=== PATIENT | female | born 1935 | race Caucasian/White ===

== ENCOUNTER 2020-06-30 09:00 | Inpatient (IN) | payer BC, OTHER ==
[~2020-06-30] VITALS: Ht 157.5 cm; Wt 67.6 kg
[2020-06-30 09:00] VITALS: BP 159/74
[~2020-06-30 09:00] MED LIST: METOPROLOL SUCC25 MG ORAL; VENLAFAXINE HCL25 MG ORAL; ZESTRIL20 MG ORAL
--- NOTE | 2020-06-30 09:00 | NUR ---
ED Nurse Note: Pt brought in by ambulance from outside home d/t mechanical fall 30 minutes prior to arrival. Pt reports walking a dog when the dog ran, pulled the leash and she fell. Pt denies head injury. Right hip pain 04/03. Right leg noted to be shorter than left and rotated exteriorly. Respirations even and unlabored on room air. Vitals stable as documented. A+Ox4, speaking in complete sentences.
[2020-06-30] MEDS ORDERED: Morphine Sulfate 4mg/ml Inj (IV USE ONLY) IVP ONE (09:15)
--- NOTE | 2020-06-30 09:26 | NUR ---
ED Nurse Note: pt in radiology
--- NOTE | 2020-06-30 09:30 | NUR ---
ED Nurse Note: pt back from radiology. No acute distress noted/
[2020-06-30 10:13] LABS: BASOPHILS % (AUTO) 1.5 % (0.0-2.0); EOSINOPHILS % (AUTO) 2.7 % (0.0-3.0); HEMATOCRIT 39.4 % (37.0-47.0); HEMOGLOBIN 12.8 G/DL (12.0-16.0); LYMPHOCYTES % (AUTO) 19.2 % (20.0-45.0); MEAN CORPUSCULAR VOLUME 90 FL (80-99); MONOCYTES % (AUTO) 8.1 % (1.0-10.0); NEUTROPHILS % (AUTO) 68.5 % (45.0-75.0); PLATELET COUNT 283 K/UL (150-450); WHITE BLOOD COUNT 7.4 K/UL (4.8-10.8)
--- NOTE | 2020-06-30 10:37 | Diagnostic Imaging Report ---
Indication: Neck pain, trauma, status post fall Technique: Spiral acquisitions obtained through the cervical spine. No IV contrast utilized. Multiplanar reconstructions were generated. Total dose length product 514 mGycm. CTDIvol(s) 20 mGy. Dose reduction achieved using automated exposure control. Comparison: none Findings: No acute fracture. No dislocation. No prevertebral soft tissue swelling. There is slight anterior offset of C2 on C3, C3 on C4, and C4 on C5. There is thickening and calcification of the posterior transverse ligament of the odontoid. There is degenerative narrowing the anterior atlantoaxial joint. At C2-3, there is bilateral facet arthrosis. No significant disc bulge or protrusion or spinal stenosis. At C3-4, there is severe left neural foraminal stenosis. No significant disc bulge or protrusion, spinal stenosis, or neural foraminal stenosis. There is facet arthrosis on the left. At C4-5, no significant disc bulge or protrusion, spinal stenosis, or neural foraminal stenosis. At C5-6, there is mild degenerative disc narrowing. There is mild bilateral neural foraminal narrowing. At C6-7 and C7-T1, no significant disc bulge or protrusion, spinal stenosis, or neural foraminal stenosis. There is bilateral facet arthrosis. There is some mucosal irregularity with surface bubbles involving the posterior nasopharynx. There is extensive sinus disease. Impression: No acute bony trauma Degenerative changes as detailed on a level by level basis above Some apparent surface irregularity of the posterior nasopharynx. Probably due to secretions, but mucosal lesion also possible. Consider direct inspection The CT scanner at [facility] is accredited by the [employer] and the scans are performed using protocols designed to limit radiation exposure to as low as reasonably achievable to attain images of sufficient resolution adequate for diagnostic evaluation.
--- NOTE | 2020-06-30 10:40 | Diagnostic Imaging Report ---
Indications: Head trauma, fall Technique: Spiral acquisitions obtained through the brain. Angled axial and coronal 5 x 5 mm slices were reconstructed. Total dose length product 1098 mGycm. CTDI vol(s) 53 mGy. Dose reduction achieved using automated exposure control Comparison: None. Findings: There is marked age-related enlargement of the ventricles and extra axial CSF spaces. There is considerable periventricular deep white matter low-attenuation, consistent with chronic microvascular ischemic changes. No acute intracranial hemorrhage or edema. No mass effect nor midline shift. Otherwise normal riddle-white differentiation. The calvarium is intact. The mastoids are clear. There is maxillary, ethmoid, and sphenoid sinus disease. Impression: Chronic and age-related changes Negative for acute intracranial bleed or mass effect Sinus disease The CT scanner at [facility] is accredited by the [employer] and the scans are performed using protocols designed to limit radiation exposure to as low as reasonably achievable to attain images of sufficient resolution adequate for diagnostic evaluation.
[2020-06-30 10:47] LABS: ANION GAP 4 mmol/L (5-15); BLOOD UREA NITROGEN 15 mg/dL (7-18); CALCIUM 9.1 MG/DL (8.5-10.1); CARBON DIOXIDE 31 MMOL/L (21-32); CHLORIDE 103 MMOL/L (98-107); CREATININE 0.8 MG/DL (0.55-1.30); POTASSIUM 3.9 MMOL/L (3.5-5.1); SODIUM 138 MMOL/L (136-145)
[2020-06-30 10:51] LABS: ALANINE AMINOTRANSFERASE 23 U/L (12-78); ALBUMIN 3.5 G/DL (3.4-5.0); ALBUMIN/GLOBULIN RATIO 0.9 (1.0-2.7); ALKALINE PHOSPHATASE 97 U/L (46-116); ASPARTATE AMINO TRANSFERASE 26 U/L (15-37); BILIRUBIN,TOTAL 0.4 MG/DL (0.2-1.0); CREATINE KINASE 110 U/L (26-308)
[2020-06-30 11:00] VITALS: BP 148/79
--- NOTE | 2020-06-30 11:00 | NUR ---
ED Nurse Note: pt's o2 sat dropped to 90% on RA. placed patient on 2 L NC. O2 sat now 98%
--- NOTE | 2020-06-30 11:21 | NUR ---
ED Nurse Note: covid swab sent to lab
[2020-06-30] MEDS: Morphine Sulfate 4mg/ml Inj (IV USE ONLY) IVP ONE ×2 (11:46→11:52)
[2020-06-30] MEDS ORDERED: Methocarbamol 750mg tab ORAL ONE (12:00)
--- NOTE | 2020-06-30 12:33 | Emergency Room Report ---
History of Present Illness General Chief Complaint: Multiple Trauma/Fall Source: Patient Present Illness HPI 85-year-old female presents ambulance status post mechanical fall this morning prior to arrival. Patient was walking her dog, and her dog took off, causing her to have instabi lity on her feet. She fell directly onto her right hip she was not ambulatory. After the fall secondary to pain. She was brought to the ED via ambulance She denies prodromal headache, syncope, neck pain, back pain, abdominal pain, melena, hematochezia or any other symptoms. Patient is not on blood thinners The patient's symptoms were gradual onset, severity was moderate, duration since 1 day. Quality: Aching Past medical history: Denies Past surgical history: Denies Smoking: Denies Alcohol use: Denies Drug use: Denies Review of systems: CONST: No fevers or chills, No night sweats PULMONARY: No productive cough, No shortness of breath CARDIAC: No chest pain, No palpitations GI: No vomiting, No diarrhea , No melena_or_BRBPR : No dysuria, No hematuria, No discharge NEURO: No new_focal_weakness_or_numbness, No confusion, No vision changes 14 point Review of Systems is otherwise negative except per HPI Physical Exam: GENERAL: Awake_alert_ nontoxic, no acute distress Spo2 98% on RA -normal EYES: Extraocular muscles are intact. Conjunctivae clear. Lids without swelling ENT: External nose and ear normal_in_appearance. Oropharynx clear. Head_atraumatic, Moist_oral_mucosa NECK: No JVD. No meningismus. No thyromegaly. Supple. Trachea midline RESP: Normal respiratory effort. Symmetric rise. No stridor. Clear_to_auscultation_No_rales_No_wheezes CARDIAC: Regular rate and regular rhytm. No_significant pedal edema. ABDOMEN: Soft. Nondistended. Nontender_No_rebound_or_guarding. No pelvic instability. MSK: Right hip is shortened and internally rotated. There is pain with range of motion. Popliteal pulse plus 2 out of 4. Intact DP and PT pulses. Right LE exam: No swelling / effusion appreciated, No significant pain with passive range of motion Lateral malleolus: no tenderness / swelling / ecchymoses Medial malleolus: no tenderness / swelling / ecchymoses Dorsalis pedis pulse: 2+ Capillary refill: <3 seconds in all toes All toes: full range of motion without any tenderness / swelling / deformity / evidence of infection Base of the fifth metatarsal: no tenderness / swelling / ecchymoses Navicular: no tenderness / swelling / ecchymoses Calcaneus: no tenderness / swelling / ecchymoses Arch of the foot: no tenderness / swelling / ecchymoses Midfoot: no tenderness / swelling / ecchymoses Strength of dorsal / plantar flexion: normal 5/5, mild pain with range of motion SKIN: Warm and dry. No visible cyanosis or pallor NEUROLOGIC: Alert, oriented x3. Motor_and_sensation_grossly_intact. No truncal ataxia. Gait_normal Psych: Normal mood and affect, normal judgment and insight - COORDINATION OF CARE Case was discussed with: Patient Any labs and imaging that were ordered were interpreted as part of the medical decision making: Medical Decision Making/Plan: Differential diagnosis includes musculoskeletal pain, fracture, dislocation, compartment syndrome, arterial occlusion, nerve damage, among others. Patient is neurologically intact and well-appearing. She is noted to have deformity to the right hip. X-rays of the right hip show closed right intertrochanteric femur fracture. Distally the patient has capillary refill <2 seconds and strong pulses. Preop labs were performed. Unremarkable. CT scan of the head and C-spine were performed and negative for acute fracture, dislocation, or intracranial hemorrhage. 1200: Orthopedic surgeon was consulted and we are pending recommendations at this time. States he will eval patient for OR I spoke with Dr. Wallace, and reviewed the patients presentation, workup, results, and treatment. They will admit the patient for further care and evaluation, and assume care of the patient at this time. 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: No Nursing Documentation-PMH Hx Hypertension: Yes Physical Exam Vital Signs Date Time Temp Pulse Resp B/P (MAP) Pulse Ox O2 Delivery O2 Flow Rate FiO2 06/30/20 08:50 98.4 77 18 163/78 (106) 98 Room Air Sp02 EP Interpretation: reviewed, normal Medical Decision Making Diagnostic Impression: Primary Impression: Intertrochanteric fracture of right femur Additional Impression: Fall Other X-Ray Diagnostic Results Other X-Ray Diagnostic Results : PA Scribe Text Pelvis X-ray: Views: 4 view(s) Intertrochanteric fracture, no dislocation, osteoarthritis Indication: [Pain] Impression: Intertrochanteric fracture The X-ray(s) were independently viewed and interpreted contemporaneously - Electronically signed by Bianca bourne DO Right knee X-ray: Views: 3 view(s) No fracture. Normal alignment. Soft tissues normal. Joint spaces normal. Indication: Pain Impression: Osteoarthritis The X-ray(s) were independently viewed and interpreted contemporaneously - Electronically signed by Bianca bourne DO Chest X-Ray: Views: [ 1 ] view(s) Indication: Fall Findings: Normal heart size. Mediastinum normal. No infiltrate. Impression: No acute disease The X-ray(s) were independently viewed and interpreted contemporaneously Electronically signed by Bianca bourne DO Reevaluation Time: 12:40 Last Vital Signs Date Time Temp Pulse Resp B/P (MAP) Pulse Ox O2 Delivery O2 Flow Rate FiO2 06/30/20 11:00 98.5 79 20 148/79 98 Nasal Cannula Status: improved Disposition: ADMITTED INPATIENT Admit Decision Time: 12:00 Condition: Stable Bianca Fuentes D.O. Jun 30, 2020 12:33
[2020-06-30 13:00] VITALS: BP 141/74
--- NOTE | 2020-06-30 14:14 | Diagnostic Imaging Report ---
Indication: Fall, trauma Technique: One view of the pelvis, 2 views of the right hip Comparison: none Findings: There is a comminuted intertrochanteric fracture of the right hip. No associated pelvic fracture. The bones are osteoporotic. The joint spaces are preserved. Impression: Positive for right hip intertrochanteric fracture
--- NOTE | 2020-06-30 14:30 | NUR ---
ED Nurse Note: report given to JUAN ALBERTO Ramos on 4E
--- NOTE | 2020-06-30 14:46 | Diagnostic Imaging Report ---
Indications: Pain, status post fall Technique: Two views of the right femur Comparison: None. Reference made to hip and pelvis radiograph performed at same time Findings: There is a comminuted intertrochanteric fracture of the proximal femur. The distal femoral shaft is unremarkable. There are degenerative proliferative changes of the knee joint, as well as meniscal chondrocalcinosis. The bones are osteoporotic. Impression: Positive for right hip intertrochanteric fracture No evidence of distal fracture
--- NOTE | 2020-06-30 15:30 | NUR ---
ED Nurse Note: Pt transferred safely to 4E with all belongings.
--- NOTE | 2020-06-30 15:30 | NUR ---
NURSE NOTES: Patient admitted from ER via [facility] under Dr. Libra rivera, diagnosis of right hip fracture. Belongings checked with ER nurse.Patient A&O x4, verbally responsive, not in respiratory distress. On oxygen 2L NC. Report pain on right hip with movement. IV on right AC saline locked. Skin intact. Difficulty hearing.Admission packet received. Bed in low position, locked, call light within reach, bed alarm on.
--- NOTE | 2020-06-30 15:57 | Diagnostic Imaging Report ---
Indication: Cough Technique: One view of the chest Comparison: 07/17/2010 Findings: Again demonstrated is a large hiatal hernia. There is mild interstitial prominence noted. There is atelectasis at the left lung base. Impression: Mild interstitial prominence. Nonspecific, could represent mild pulmonary edema, infiltrate, or could be chronic. Large hiatal hernia
--- NOTE | 2020-06-30 16:05 | History and Physical ---
Marley Bansal SAFE TECHNICIAN 06/30/20 1605: History of Present Illness General Reason for Hospitalization: Multiple Trauma/Fall Present Illness HPI 85 years old female with PMH of HTN, IA in 2010 , s/p 2 stents placement, depression, was brought by television engineer after mechanical fall which she sustained while walking her dog. Patient denied loss of consciousness blackout no seizure disorder. No headache. No neck pain She denied abdominal pain nausea vomiting diarrhea hematochezia or hematemesis. She was not taking any blood thinners. She denies chest pain, SOB, palpitations. Upon evaluation patietn was afebrile, BP was elevated. Rapid COVID [address] head revealed no acute intracranial pathology. Age-related changes noted. X-ray of the right femur and right hip with pelvis revealed right hip intertrochanteric fracture. CT of the cervical spine revealed no acute fracture. Degenerative changes noted. Laboratory work-up demonstrated no leukocytosis, stable hemoglobin and hematocrit. Stable electrolytes and renal parameters. Troponin negative. EKG revealed normal sinus rhythm no acute ischemic changes Patient subsequently admitted for mechanical fall, intertrochanteric fracture of the right femur. PMH: HRN< IA ( 2010), depression Past surgery: hysterectomy ( due to bleeding fibroids), s/p 2 stent placement Social history: fdenies smoking, ETOH abuse, illcicit drug use; retired, lives with her daughter Family history: not contributory Allergy: NKDA Medications: unknown ( patient will call her daughter to find out about medications) Code status: Full code Allergies: Coded Allergies: No Known Allergies (Verified , 07/17/10) COVID-19 Screening Contact w/high risk pt: No Experienced COVID-19 symptoms?: No Medication History Scheduled Lisinopril* (Zestril*), 20 MG ORAL BID, (Reported) Metoprolol Succinate* (Metoprolol Succinate*), 25 MG ORAL DAILY, (Reported) Venlafaxine Hcl* (Effexor*), 25 MG ORAL THREE TIMES A DAY, (Reported) Patient History Healthcare decision maker N Resuscitation status Advanced Directive on File Review of Systems Constitutional: Reports: no symptoms Eye: Reports: no symptoms ENT: Reports: no symptoms Respiratory: Reports: no symptoms Cardiovascular: Reports: other - hx of HTN, IA ( 2010) Gastrointestinal: Reports: no symptoms Musculoskeletal: Reports: see HPI, other - pain R hip, unable to ambulate Skin: Reports: no symptoms Psychiatric: Reports: other - depression Neurological: Reports: other - reports intermittnet numbness in toes BL Endocrine: Reports: no symptoms Hematologic/Lymphatic: Reports: no symptoms Physical Exam General Appearance: no apparent distress, alert Lines, tubes and drains: peripheral HEENT: normocephalic, atraumatic, anicteric, mucous membranes moist, PERRL, other - hard of hearing Respiratory/Chest: chest wall non-tender, lungs clear, no respiratory distress, no accessory muscle use Cardiovascular/Chest: normal rate - SR on monitor Abdomen: normal bowel sounds, non tender, soft Extremities: normal range of motion, no calf tenderness, normal capillary refill, other - R hip with external rotation Skin Exam: normal pigmentation, warm/dry Neurologic: abnormal gait - now unable to ambulate , alert, oriented x 3, responsive Musculoskeletal: normal muscle bulk Last 24 Hour Vital Signs Date Time Temp Pulse Resp B/P (MAP) Pulse Ox O2 Delivery O2 Flow Rate FiO2 06/30/20 13:00 98.9 84 20 141/74 99 Nasal Cannula 2.0 06/30/20 11:00 98.5 79 20 148/79 98 Nasal Cannula 06/30/20 09:00 98.2 79 20 159/74 95 Room Air 06/30/20 09:00 79 20 Room Air 06/30/20 08:50 98.4 77 18 163/78 (106) 98 Room Air Laboratory Tests Test 06/30/20 09:30 White Blood Count 7.4 K/UL (4.8-10.8) Red Blood Count 4.40 M/UL (4.20-5.40) Hemoglobin 12.8 G/DL (12.0-16.0) Hematocrit 39.4 % (37.0-47.0) Mean Corpuscular Volume 90 FL (80-99) Mean Corpuscular Hemoglobin 29.1 PG (27.0-31.0) Mean Corpuscular Hemoglobin Concent 32.4 G/DL (32.0-36.0) Red Cell Distribution Width 13.0 % (11.6-14.8) Platelet Count 283 K/UL (150-450) Mean Platelet Volume 7.1 FL (6.5-10.1) Neutrophils (%) (Auto) 68.5 % (45.0-75.0) Lymphocytes (%) (Auto) 19.2 % (20.0-45.0) L Monocytes (%) (Auto) 8.1 % (1.0-10.0) Eosinophils (%) (Auto) 2.7 % (0.0-3.0) Basophils (%) (Auto) 1.5 % (0.0-2.0) Prothrombin Time 11.2 SEC (9.30-11.50) Prothromb Time International Ratio 1.0 (0.9-1.1) Activated Partial Thromboplast Time 27 SEC (23-33) Sodium Level 138 MMOL/L (136-145) Potassium Level 3.9 MMOL/L (3.5-5.1) Chloride Level 103 MMOL/L (98-107) Carbon Dioxide Level 31 MMOL/L (21-32) Anion Gap 4 mmol/L (5-15) L Blood Urea Nitrogen 15 mg/dL (7-18) Creatinine 0.8 MG/DL (0.55-1.30) Estimat Glomerular Filtration Rate > 60 mL/min (>60) Glucose Level 125 MG/DL (74-106) H Calcium Level 9.1 MG/DL (8.5-10.1) Total Bilirubin 0.4 MG/DL (0.2-1.0) Aspartate Amino Transf (AST/SGOT) 26 U/L (15-37) Alanine Aminotransferase (ALT/SGPT) 23 U/L (12-78) Alkaline Phosphatase 97 U/L (46-116) Total Creatine Kinase 110 U/L (26-308) Troponin I 0.002 ng/mL (0.000-0.056) Total Protein 7.5 G/DL (6.4-8.2) Albumin 3.5 G/DL (3.4-5.0) Globulin 4.0 g/dL Albumin/Globulin Ratio 0.9 (1.0-2.7) L Microbiology Date/Time Source Procedure Growth Status 06/30/20 11:02 Nasopharynx SARS-CoV-2 RdRp Gene Assay - Final Complete Height (Feet): 5 Height (Inches): 3.00 Weight (Pounds): 150 Assessment/Plan Assessment/Plan: ASSESSMENT Right intertrochanteric fracture s/p mechanical fall HTN Hx of IA Depression PLAN OF CARE MS floor surgery eval pain management ECHO will need cardio clearance for surgery given hx of IA BP management resume meds from home when known DVT prophylaxis supportive care case discussed and evaluated by supervising physician Dedrick Cobos MD 06/30/20 1803: History of Present Illness General Reason for Hospitalization: Multiple Trauma/Fall Present Illness Allergies: Coded Allergies: No Known Allergies (Verified , 07/17/10) Medication History Scheduled Lisinopril* (Zestril*), 20 MG ORAL BID, (Reported) Metoprolol Succinate* (Metoprolol Succinate*), 25 MG ORAL DAILY, (Reported) Venlafaxine Hcl* (Effexor*), 25 MG ORAL THREE TIMES A DAY, (Reported) Marley Bansal NP Jun 30, 2020 16:05 Dedrick Cobos MD Jun 30, 2020 18:03
[2020-06-30] MEDS ORDERED: Miralax 17gm pkt ORAL PRN (16:15)
--- NOTE | 2020-06-30 16:44 | Cardiac Electrophysiology PN ---
Subjective Subjective [id number] Objective Last 24 Hour Vital Signs Date Time Temp Pulse Resp B/P (MAP) Pulse Ox O2 Delivery O2 Flow Rate FiO2 06/30/20 13:00 98.9 84 20 141/74 99 Nasal Cannula 2.0 06/30/20 11:00 98.5 79 20 148/79 98 Nasal Cannula 06/30/20 09:00 98.2 79 20 159/74 95 Room Air 06/30/20 09:00 79 20 Room Air 06/30/20 08:50 98.4 77 18 163/78 (106) 98 Room Air Laboratory Tests Test 06/30/20 09:30 White Blood Count 7.4 K/UL (4.8-10.8) Red Blood Count 4.40 M/UL (4.20-5.40) Hemoglobin 12.8 G/DL (12.0-16.0) Hematocrit 39.4 % (37.0-47.0) Mean Corpuscular Volume 90 FL (80-99) Mean Corpuscular Hemoglobin 29.1 PG (27.0-31.0) Mean Corpuscular Hemoglobin Concent 32.4 G/DL (32.0-36.0) Red Cell Distribution Width 13.0 % (11.6-14.8) Platelet Count 283 K/UL (150-450) Mean Platelet Volume 7.1 FL (6.5-10.1) Neutrophils (%) (Auto) 68.5 % (45.0-75.0) Lymphocytes (%) (Auto) 19.2 % (20.0-45.0) L Monocytes (%) (Auto) 8.1 % (1.0-10.0) Eosinophils (%) (Auto) 2.7 % (0.0-3.0) Basophils (%) (Auto) 1.5 % (0.0-2.0) Prothrombin Time 11.2 SEC (9.30-11.50) Prothromb Time International Ratio 1.0 (0.9-1.1) Activated Partial Thromboplast Time 27 SEC (23-33) Sodium Level 138 MMOL/L (136-145) Potassium Level 3.9 MMOL/L (3.5-5.1) Chloride Level 103 MMOL/L (98-107) Carbon Dioxide Level 31 MMOL/L (21-32) Anion Gap 4 mmol/L (5-15) L Blood Urea Nitrogen 15 mg/dL (7-18) Creatinine 0.8 MG/DL (0.55-1.30) Estimat Glomerular Filtration Rate > 60 mL/min (>60) Glucose Level 125 MG/DL (74-106) H Calcium Level 9.1 MG/DL (8.5-10.1) Total Bilirubin 0.4 MG/DL (0.2-1.0) Aspartate Amino Transf (AST/SGOT) 26 U/L (15-37) Alanine Aminotransferase (ALT/SGPT) 23 U/L (12-78) Alkaline Phosphatase 97 U/L (46-116) Total Creatine Kinase 110 U/L (26-308) Troponin I 0.002 ng/mL (0.000-0.056) Total Protein 7.5 G/DL (6.4-8.2) Albumin 3.5 G/DL (3.4-5.0) Globulin 4.0 g/dL Albumin/Globulin Ratio 0.9 (1.0-2.7) L Microbiology Date/Time Source Procedure Growth Status 06/30/20 11:02 Nasopharynx SARS-CoV-2 RdRp Gene Assay - Final Complete Tim Chávez MD Jun 30, 2020 16:44
[2020-06-30] MEDS: Enoxaparin 40mg Inj SUBQ SCH (17:55)
[2020-06-30] MEDS: Venlafaxine 25mg tab ORAL SCH (17:55)
--- NOTE | 2020-06-30 18:00 | Consultation ---
DATE OF CONSULTATION: 06/30/2020 CARDIOLOGY CONSULTATION REFERRING PHYSICIAN: Dedrick Cobos M.D. REASON FOR CONSULTATION: Management of hypertension and preoperative clearance prior to hip surgery. HISTORY OF PRESENT ILLNESS: The patient is an 85-year-old lady with history of hypertension and prior myocardial infarction in 2010, status post 2 stents, as well as depression, who was brought in after a mechanical fall while she was walking her dog. The patient did not have loss of consciousness. The patient denies any chest pain or palpitation or shortness of breath. Her rapid COVID was negative and head CT showed no intracranial pathology. The patient's x-ray showed right hip intertrochanteric fracture. The patient is scheduled for surgery tomorrow and cardiology consultation was obtained for further evaluation. Her EKG shows sinus rhythm with no acute ischemic changes. REVIEW OF SYSTEMS: Negative other than what is mentioned in history of present illness. PAST MEDICAL HISTORY: As mentioned above. FAMILY HISTORY: Noncontributory. SOCIAL HISTORY: She lives at home. Does not smoke or drink alcohol. MEDICATION AT HOME: Lisinopril 20 mg b.i.d. and metoprolol 25 mg daily and Effexor. PHYSICAL EXAMINATION: VITAL SIGNS: Blood pressure of 141/74, pulse 84, respirations 18, and she is afebrile. HEAD AND NECK: No JVD or carotid bruit. LUNGS: Clear. CARDIOVASCULAR: Regular S1 and S2 with no gallop or murmur. ABDOMEN: Soft. EXTREMITIES: No pitting edema. Her left hip is rotated. LABORATORY DATA: Labs show white count of 7.5, hematocrit 12.8, hematocrit 39, and platelet count 283. Sodium is 138, potassium 3.9, BUN of 15, creatinine 0.8. First troponin is negative. ASSESSMENT AND PLAN: 1. History of hypertension. The patient's blood pressure currently is stable on lisinopril 20 mg b.i.d. and Toprol-XL 25 mg daily. We will add p.r.n. clonidine to her medical regimen. 2. Coronary artery disease with history of stent in the past. Remains without any chest pain. EKG is nonischemic. We will get an echocardiogram. Repeat EKG and repeat cardiac enzymes all negative. The patient is okay to proceed with right hip surgery as well to low-risk surgery in this asymptomatic patient from cardiac perspective. 3. Hypertension. Continue lisinopril and metoprolol. Thank you very much for allowing me to participate in the care of this patient. Please do not hesitate to contact me for any questions regarding my evaluation. Tim Chávez M.D. DR: KARLENE JOB#: [id number] CC:
--- NOTE | 2020-06-30 19:40 | NUR ---
NURSE HAND-OFF: Important Events on Shift:New admission d/t right hip Fx Patient Status: stable, painful Diet: cardiac Pending Orders: n/a Pending Results/Labs:n/a Pending MD notification: n/a Latest Vital Signs: Temperature 98.5 , Pulse 81 , B/P 144 /67 , Respiratory Rate 20 , O2 SAT 98 , Nasal Cannula, O2 Flow Rate 2.0 . Vital Sign Comment: n/a Latest Austin Fall Score: 60 Fall Risk: High Risk Safety Measures: Call light Within Reach, Bed Alarm Zone 1, Side Rails Side Rails x2, Bed position Low and Locked. Fall Precautions: Yellow Socks Door Sign Patient Fall Education Report given to JUAN ALBERTO Steven.
[2020-06-30 20:00] VITALS: BP_SYST 100; BP_SYST 126; BP_DIAS 55; BP_DIAS 68
--- NOTE | 2020-06-30 20:00 | NUR ---
/NURSES NOTE: Pt in bed, A/OX4, states she has 9/10 pain in R hip. Will medicate according to eMAR. No outward s/s of distress noted. Breathing is even and unlabored on 2 L nasal canula. R AC IV site, patent. All due medications will be administered. Bed at lowest level, call light within reach. Pt will continue to be monitored.
[2020-06-30] MEDS: Lisinopril 20mg tab ORAL SCH (20:44)
[2020-06-30] MEDS: Docusate 100mg cap ORAL SCH (20:44)
[2020-06-30] MEDS: Morphine Sulfate 2mg/ml Inj(IV/IM USE ONLY) IVP PRN (20:46)
[2020-07-01] VITALS: BP 116/68
[2020-07-01] MEDS: Morphine Sulfate 2mg/ml Inj(IV/IM USE ONLY) IVP PRN ×3 (01:18→21:31)
[2020-07-01 04:00] VITALS: BP 120/62
[2020-07-01 06:45] LABS: BASOPHILS % (AUTO) 0.9 % (0.0-2.0); EOSINOPHILS % (AUTO) 0.3 % (0.0-3.0); HEMOGLOBIN 11.2 G/DL (12.0-16.0); LYMPHOCYTES % (AUTO) 10.3 % (20.0-45.0); MEAN CORPUSCULAR VOLUME 91 FL (80-99); MONOCYTES % (AUTO) 11.2 % (1.0-10.0); NEUTROPHILS % (AUTO) 77.3 % (45.0-75.0); PLATELET COUNT 261 K/UL (150-450); RED BLOOD COUNT 3.76 M/UL (4.20-5.40); RED CELL DISTRIBUTION WIDTH 12.5 % (11.6-14.8); WHITE BLOOD COUNT 11.6 K/UL (4.8-10.8)
--- NOTE | 2020-07-01 06:52 | NUR ---
NURSE HAND-OFF: Important Events on Shift:[Pt has brief on. In too much pain to be changed, turned, or cleaned. Offered several times and refused] Patient Status: [stable] Diet: [cardiac diet] Pending Orders: [] Pending Results/Labs:[cbc bmp hgb A1C] Pending MD notification:[NONE] Latest Vital Signs: Temperature 98.7 , Pulse 84 , B/P 120 /62 , Respiratory Rate 18 , O2 SAT 96 , Nasal Cannula, O2 Flow Rate 2.0 . Vital Sign Comment: [Within Normal Limits] Latest Austin Fall Score: 60 Fall Risk: High Risk Safety Measures: Call light Within Reach, Bed Alarm Zone 1, Side Rails Side Rails x2, Bed position Low and Locked. Fall Precautions: Yellow Socks Patient Fall Education Report given to [].
--- NOTE | 2020-07-01 07:40 | NUR ---
HAND OFF: R Report given to JUAN ALBERTO Choudhury
--- NOTE | 2020-07-01 07:41 | Consultation ---
Consult Note Consult Note 85 yo female with mechanical fall outside yesterday while walking her dog. Right hip pain and IT fracture on Xray hx of [place] NKDA Xray reviewed Assessment/Plan right hip IT fracture plan for ORIF tomorrow morning cards and med clearance today NPO tonight Risks/benefits discussed Kenya Luna Jul 01, 2020 07:41
--- NOTE | 2020-07-01 07:42 | NUR ---
NURSE NOTES: Report received from JUAN ALBERTO Michaels. Pt received, awake, alert and oriented x 4, no SOB, bed in lowest position with breaks engaged, denies any discomfort at this time, on 02 via NC at 2 lpm, IV site present, will continue to monitor, call light within reach.
[2020-07-01 07:59] LABS: ANION GAP 0 mmol/L (5-15); BLOOD UREA NITROGEN 20 mg/dL (7-18); CALCIUM 9.1 MG/DL (8.5-10.1); CARBON DIOXIDE 33 MMOL/L (21-32); CHLORIDE 101 MMOL/L (98-107); CHOLESTEROL 208 MG/DL (< 200); CREATININE 0.8 MG/DL (0.55-1.30); HDL CHOLESTEROL 52 MG/DL (40-60); POTASSIUM 4.5 MMOL/L (3.5-5.1); SODIUM 134 MMOL/L (136-145); TRIGLYCERIDES 89 MG/DL (30-150)
[2020-07-01 08:00] VITALS: BP 118/62
--- NOTE | 2020-07-01 08:30 | Consultation ---
DATE OF CONSULTATION: 07/01/2020 ORTHOPEDIC CONSULTATION CONSULTING PHYSICIAN: Neel Gonzalez MD. HISTORY OF PRESENT ILLNESS: The patient is an 85-year-old female, who was outside yesterday on the sidewalk, walking her dog, when the dog ran and she tripped and fell, landing on her right side. She could not get up. Emergency services was called and [place] [facility] [place] found to have a right hip intertrochanteric fracture. She has been admitted and Orthopedics consult has been called. PAST MEDICAL HISTORY: Hypertension and history of NE. PAST SURGICAL HISTORY: None. CURRENT MEDICATIONS: Please see chart. ALLERGIES: None. SOCIAL HISTORY: She lives at home. She is independent with her activities at baseline. PHYSICAL EXAMINATION: GENERAL: She is a pleasant woman. She is cooperative with examination, although she is hard of hearing. She answers questions appropriately and gives me an accurate account of the history. MUSCULOSKELETAL: She has tenderness upon palpation of the right hip with some developing ecchymosis. Any mobility of the right lower extremity elicits pain. She is neurovascularly intact. IMAGING: X-ray of the hip reviewed. There is an intertrochanteric fracture of the right hip. IMPRESSION: Right hip intertrochanteric fracture. DISCUSSION: At this time, I discussed with the patient my findings. Recommend going forward a right hip open reduction and internal fixation with gamma nail tomorrow morning, she would like to have this done. We will have Cardiology to clear her as well as the Medicine team clear her ahead of surgery, implant procedure in the morning. The risks of surgery including nerve injury, vessel injury, risk of infection and bleeding, risk of fracture, dislocation, hardware failure, need for revision surgery down the line, as well as possible exposure and infection of COVID-19 were all discussed. She understands what is involved and she wants to move forward. We will get her set up for the procedure and follow her along throughout her stay. Neel Gonzalez M.D. Caridad Aguila DR: AYSHA JOB#: [id number] CC:
[2020-07-01] MEDS: Docusate 100mg cap ORAL SCH ×2 (08:45→21:31)
[2020-07-01] MEDS: Metoprolol Succinate XL 25mg tab ORAL SCH (08:45)
[2020-07-01] MEDS: Venlafaxine 25mg tab ORAL SCH ×3 (08:45→17:16)
[2020-07-01] MEDS: Lisinopril 20mg tab ORAL SCH ×2 (08:47→21:31)
[2020-07-01] MEDS: Enoxaparin 40mg Inj SUBQ SCH (08:47)
--- NOTE | 2020-07-01 10:33 | Pulmonology Progress Note ---
Subjective Allergies: Coded Allergies: No Known Allergies (Verified , 07/17/10) Subjective mild leuk today, probably reactive , no fevers reports pain R hip no SIB, no CP seen by ortho ORIF planned Objective Last 24 Hour Vital Signs Date Time Temp Pulse Resp B/P (MAP) Pulse Ox O2 Delivery O2 Flow Rate FiO2 07/01/20 09:00 Room Air 07/01/20 08:47 118/62 07/01/20 08:45 81 118/62 07/01/20 08:00 98.3 81 18 118/62 (80) 96 07/01/20 04:00 98.7 84 18 120/62 (81) 96 07/01/20 00:00 98.5 75 17 116/68 (84) 96 06/30/20 21:00 Room Air 06/30/20 20:44 126/68 06/30/20 20:00 98.1 98 18 126/68 (87) 98 06/30/20 16:30 Nasal Cannula 2.0 06/30/20 15:30 98.5 81 20 144/67 98 Nasal Cannula 2.0 06/30/20 13:00 98.9 84 20 141/74 99 Nasal Cannula 2.0 06/30/20 11:00 98.5 79 20 148/79 98 Nasal Cannula Intake and Output 06/30/20 07/01/20 19:00 07:00 Intake Total 480 ml Balance 480 ml Intake Oral 480 ml # Voids 2 Objective General Appearance: no apparent distress, alert Lines, tubes and drains: peripheral HEENT: normocephalic, atraumatic, anicteric, mucous membranes moist, PERRL, other - hard of hearing Respiratory/Chest: chest wall non-tender, lungs clear, no respiratory distress, no accessory muscle use Cardiovascular/Chest: normal rate - SR on monitor Abdomen: normal bowel sounds, non tender, soft Extremities: normal range of motion, no calf tenderness, normal capillary refill, other - R hip with external rotation Skin Exam: normal pigmentation, warm/dry Neurologic: abnormal gait - now unable to ambulate , alert, oriented x 3, responsive Musculoskeletal: normal muscle bulk Microbiology Date/Time Source Procedure Growth Status 06/30/20 11:02 Nasopharynx SARS-CoV-2 RdRp Gene Assay - Final Complete Laboratory Tests 07/01/20 04:50: White Blood Count 11.6#H, Red Blood Count 3.76L, Hemoglobin 11.2L, Hematocrit 34.0L, Mean Corpuscular Volume 91, Mean Corpuscular Hemoglobin 29.8, Mean Corpuscular Hemoglobin Concent 32.9, Red Cell Distribution Width 12.5, Platelet Count 261, Mean Platelet Volume 6.9, Neutrophils (%) (Auto) 77.3H, Lymphocytes (%) (Auto) 10.3L, Monocytes (%) (Auto) 11.2H, Eosinophils (%) (Auto) 0.3, Basophils (%) (Auto) 0.9, Sodium Level 134L, Potassium Level 4.5, Chloride Level 101, Carbon Dioxide Level 33H, Anion Gap 0L, Blood Urea Nitrogen 20H, Creatinine 0.8, Estimat Glomerular Filtration Rate > 60, Glucose Level 115H, Hemoglobin A1c 6.0, Calcium Level 9.1, Magnesium Level 1.9, Troponin I 0.000, Triglycerides Level 89, Cholesterol Level 208H, LDL Cholesterol 128H, HDL Cholesterol 52, Cholesterol/HDL Ratio 4.0, Thyroid Stimulating Hormone (TSH) 1.207 Current Medications Medications (Trade) Dose Ordered Sig/Maliha Route PRN Reason Start Time Stop Time Status Last Admin Dose Admin Acetaminophen (Tylenol) 650 mg Q4H PRN ORAL Mild Pain (Pain Scale 1-3) 06/30/20 16:15 07/30/20 16:14 07/01/20 03:27 Docusate Sodium (Colace) 100 mg EVERY 12 HOURS ORAL 06/30/20 21:00 07/30/20 20:59 07/01/20 08:45 Enoxaparin Sodium (Lovenox) 40 mg DAILY SUBQ 06/30/20 18:00 09/28/20 17:59 07/01/20 08:47 Lisinopril (PriniviL) 20 mg Q12HR ORAL 06/30/20 21:00 07/30/20 20:59 06/30/20 20:44 Metoprolol Succinate (Toprol XL) 25 mg DAILY ORAL 07/01/20 09:00 09/29/20 08:59 07/01/20 08:45 Morphine Sulfate (Morphine Sulfate) 2 mg Q4H PRN IVP Severe Pain (Pain Scale 7-10) 06/30/20 16:15 07/07/20 16:14 07/01/20 01:18 Ondansetron HCl (Zofran) 4 mg Q6H PRN IVP Nausea & Vomiting 06/30/20 16:15 07/30/20 16:14 Polyethylene Glycol (Miralax) 17 gm HSPRN PRN ORAL Constipation 06/30/20 16:15 07/30/20 16:14 Venlafaxine HCl (Effexor) 25 mg THREE TIMES A DAY ORAL 06/30/20 18:00 09/28/20 17:59 07/01/20 08:45 Assessment/Plan Assessment/Plan ASSESSMENT Right intertrochanteric fracture s/p mechanical fall HTN HLD Hx of ID Depression PLAN OF CARE MS floor surgery eval appreciated ORIF pending pain management, increase dose ECHO with pEF , mild pulm HTN cardio eval appreciated pending clearance after he reviews ECHO troponin x 2 NGT BP management with current regimen- stable lipid panel with elevated LDL need statin on dc and education on low fat low cholesterol diet TSH WNL mild leuk today likely reactive home meds resumed DVT prophylaxis supportive care case discussed and evaluated by supervising physician Marley Bansal NP Jul 01, 2020 10:33 Dedrick Cobos MD Jul 01, 2020 17:29
[2020-07-01] MEDS ORDERED: METOPROLOL TART25 MG ORAL (10:41)
[2020-07-01] MEDS ORDERED: OMEPRAZOLE40 M1 ORAL (10:41)
[2020-07-01] MEDS ORDERED: LISINOPRIL40 MG ORAL (10:41)
[2020-07-01] MEDS ORDERED: VENLAFAXINE HC150 MG ORAL (10:41)
[2020-07-01] MEDS ORDERED: Morphine Sulfate 2mg/ml Inj(IV/IM USE ONLY) IVP PRN (11:30)
[2020-07-01] MEDS ORDERED: HYDROcodone/Acetamin 7.5/325 tab ORAL PRN (11:30)
[2020-07-01 12:00] VITALS: BP 131/67
--- NOTE | 2020-07-01 13:24 | Anethesia Preoperative Eval ---
Anesthesia Pre-op PMH/ROS General Date of Evaluation: Jul 01, 2020 Time of Evaluation: 13:20 Anesthesiologist: Carmelo ASA Score: ASA 3 Mallampati Score Class I : Soft palate, uvula, fauces, pillars visible Class II: Soft palate, uvula, fauces visible Class III: Soft palate, base of uvula visible Class IV: Only hard plate visible Mallampati Classification: Class II Surgeon: Carlos Diagnosis: R femoral Fx Surgical Procedure: ORIF Anesthesia History: none Family History: no anesthesia problems Allergies: Coded Allergies: No Known Allergies (Verified , 07/17/10) Medications: see eMAR Patient NPO?: Yes Past Medical History Cardiovascular: Reports: HTN, CAD - stable no recent CP, [address]; Denies: WI, valve dz, arrhythmia, other Pulmonary: Denies: asthma, COPD, MESFIN, other Gastrointestinal/Genitourinary: Reports: GERD; Denies: CRI, ESRD, other Neurologic/Psychiatric: Reports: depression/anxiety; Denies: dementia, CVA, TIA, other Endocrine: Denies: DM, hypothyroidism, steroids, other HEENT: Denies: cataract (L), cataract (R), glaucoma, LA JOLLA (L), LA JOLLA (R), other Hematology/Immune: Reports: anemia - mild; Denies: DVT, bleeding disorder, other Musculoskeletal/Integumentary: Reports: OA; Denies: RA, DJD, DDD, edema, other PMH Narrative: as above PSxH Narrative: Hysterectomy Anesthesia Pre-op Phys. Exam Physician Exam Last Vital Signs Date Time Temp Pulse Resp B/P (MAP) Pulse Ox O2 Delivery O2 Flow Rate FiO2 07/01/20 12:00 97.9 96 18 131/67 (88) 98 07/01/20 09:00 Room Air 06/30/20 16:30 2.0 Constitutional: NAD Neurologic: CN 2-12 intact Cardiovascular: RRR, no M/R/G Respiratory: CTA Gastrointestinal: S/NT/ND Airway Exam Mallampati Score: Class II MO: limited Neck: stiff ROM: limited Teeth: missing Dentures: no upper, no lower Anesthesia Pre-op A/P Labs Hematology Test 07/01/20 04:50 White Blood Count 11.6 K/UL (4.8-10.8) #H Red Blood Count 3.76 M/UL (4.20-5.40) L Hemoglobin 11.2 G/DL (12.0-16.0) L Hematocrit 34.0 % (37.0-47.0) L Mean Corpuscular Volume 91 FL (80-99) Mean Corpuscular Hemoglobin 29.8 PG (27.0-31.0) Mean Corpuscular Hemoglobin Concent 32.9 G/DL (32.0-36.0) Red Cell Distribution Width 12.5 % (11.6-14.8) Platelet Count 261 K/UL (150-450) Mean Platelet Volume 6.9 FL (6.5-10.1) Neutrophils (%) (Auto) 77.3 % (45.0-75.0) H Lymphocytes (%) (Auto) 10.3 % (20.0-45.0) L Monocytes (%) (Auto) 11.2 % (1.0-10.0) H Eosinophils (%) (Auto) 0.3 % (0.0-3.0) Basophils (%) (Auto) 0.9 % (0.0-2.0) Chemistry Test 07/01/20 04:50 Sodium Level 134 MMOL/L (136-145) L Potassium Level 4.5 MMOL/L (3.5-5.1) Chloride Level 101 MMOL/L (98-107) Carbon Dioxide Level 33 MMOL/L (21-32) H Anion Gap 0 mmol/L (5-15) L Blood Urea Nitrogen 20 mg/dL (7-18) H Creatinine 0.8 MG/DL (0.55-1.30) Estimat Glomerular Filtration Rate > 60 mL/min (>60) Glucose Level 115 MG/DL (74-106) H Hemoglobin A1c 6.0 % (4.3-6.0) Calcium Level 9.1 MG/DL (8.5-10.1) Magnesium Level 1.9 MG/DL (1.8-2.4) Troponin I 0.000 ng/mL (0.000-0.056) Triglycerides Level 89 MG/DL (30-150) Cholesterol Level 208 MG/DL (< 200) H LDL Cholesterol 128 mg/dL (<100) H HDL Cholesterol 52 MG/DL (40-60) Cholesterol/HDL Ratio 4.0 (3.3-4.4) Thyroid Stimulating Hormone (TSH) 1.207 uiU/mL (0.358-3.740) Risk Assessment & Plan Assessment: ASA 3 Plan: SAB vs GA Status Change Before Surgery: Ronan Nielsen MD Jul 01, 2020 13:24
--- NOTE | 2020-07-01 14:45 | NUR ---
NURSES NOTES: Called Dr. Gonzalez's office and left a message regarding patient's surgery tomorrow. Per daughter and patient, they have not talked to surgeon yet and will sign consent as soon as they have more information regarding surgery. Will continue to ff up.
--- NOTE | 2020-07-01 15:26 | NUR ---
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
[2020-07-01 16:00] VITALS: BP 132/83
--- NOTE | 2020-07-01 16:38 | Cardiac Electrophysiology PN ---
Assessment/Plan Assessment/Plan 1. History of hypertension. On lisinopril 20 mg b.i.d. and Toprol-XL 25 mg daily and p.r.n. clonidine 2. Coronary artery disease with history of stent in the past. Remains without any chest pain. EKG is nonischemic and echocardiogram EF 60% The patient stable and at moderate risk to proceed with right hip surgery 3. Hypertension. Continue lisinopril and metoprolol. Subjective Subjective Scheduled for surgery tomorrow. No CP or SOB Objective Last 24 Hour Vital Signs Date Time Temp Pulse Resp B/P (MAP) Pulse Ox O2 Delivery O2 Flow Rate FiO2 07/01/20 16:00 99.0 96 18 132/83 (99) 96 07/01/20 13:51 97.9 07/01/20 12:00 97.9 96 18 131/67 (88) 98 07/01/20 09:00 Room Air 07/01/20 08:47 118/62 07/01/20 08:45 81 118/62 07/01/20 08:00 98.3 81 18 118/62 (80) 96 07/01/20 04:00 98.7 84 18 120/62 (81) 96 07/01/20 00:00 98.5 75 17 116/68 (84) 96 06/30/20 21:00 Room Air 06/30/20 20:44 126/68 06/30/20 20:00 98.1 98 18 126/68 (87) 98 Intake and Output 06/30/20 07/01/20 19:00 07:00 Intake Total 480 ml Balance 480 ml Intake Oral 480 ml # Voids 2 Laboratory Tests Test 07/01/20 04:50 White Blood Count 11.6 K/UL (4.8-10.8) #H Red Blood Count 3.76 M/UL (4.20-5.40) L Hemoglobin 11.2 G/DL (12.0-16.0) L Hematocrit 34.0 % (37.0-47.0) L Mean Corpuscular Volume 91 FL (80-99) Mean Corpuscular Hemoglobin 29.8 PG (27.0-31.0) Mean Corpuscular Hemoglobin Concent 32.9 G/DL (32.0-36.0) Red Cell Distribution Width 12.5 % (11.6-14.8) Platelet Count 261 K/UL (150-450) Mean Platelet Volume 6.9 FL (6.5-10.1) Neutrophils (%) (Auto) 77.3 % (45.0-75.0) H Lymphocytes (%) (Auto) 10.3 % (20.0-45.0) L Monocytes (%) (Auto) 11.2 % (1.0-10.0) H Eosinophils (%) (Auto) 0.3 % (0.0-3.0) Basophils (%) (Auto) 0.9 % (0.0-2.0) Sodium Level 134 MMOL/L (136-145) L Potassium Level 4.5 MMOL/L (3.5-5.1) Chloride Level 101 MMOL/L (98-107) Carbon Dioxide Level 33 MMOL/L (21-32) H Anion Gap 0 mmol/L (5-15) L Blood Urea Nitrogen 20 mg/dL (7-18) H Creatinine 0.8 MG/DL (0.55-1.30) Estimat Glomerular Filtration Rate > 60 mL/min (>60) Glucose Level 115 MG/DL (74-106) H Hemoglobin A1c 6.0 % (4.3-6.0) Calcium Level 9.1 MG/DL (8.5-10.1) Magnesium Level 1.9 MG/DL (1.8-2.4) Troponin I 0.000 ng/mL (0.000-0.056) Triglycerides Level 89 MG/DL (30-150) Cholesterol Level 208 MG/DL (< 200) H LDL Cholesterol 128 mg/dL (<100) H HDL Cholesterol 52 MG/DL (40-60) Cholesterol/HDL Ratio 4.0 (3.3-4.4) Thyroid Stimulating Hormone (TSH) 1.207 uiU/mL (0.358-3.740) Microbiology Date/Time Source Procedure Growth Status 06/30/20 11:02 Nasopharynx SARS-CoV-2 RdRp Gene Assay - Final Complete Objective HEAD AND NECK: No JVD or carotid bruit. LUNGS: Clear. CARDIOVASCULAR: Regular S1 and S2 with no gallop or murmur. ABDOMEN: Soft. EXTREMITIES: No pitting edema. Her hip is rotated and shortened Tim Chávez MD Jul 01, 2020 16:38
--- NOTE | 2020-07-01 18:43 | Consultation ---
History of Present Illness General Date patient seen: Jul 01, 2020 Reason for Hospitalization: Multiple Trauma/Fall Present Illness HPI 85 year old female with trauma/fall. states was walking her dog and fell when dog ran off and she lost her balance. prior history of falls but states this was more severe and she had known something "broke" 04/03 pain. denies LOC. states direct fall onto hip. no n/v/f/c. came to [facility] and surgery called for eval given trauma. noted hip fracture. ortho surgery called as well. patient states she is concerned about her rehab, time, and pain. discussed care plan with patient and explained planned eval by ortho surgery as well. no significant hematoma. no head trauma. hands noted. labs reviewed. imaging reviewed. CT performed and noted. Allergies: Coded Allergies: No Known Allergies (Verified , 07/17/10) COVID-19 Screening Contact w/high risk pt: No Experienced COVID-19 symptoms?: No Medication History Scheduled Lisinopril* (Lisinopril*), 40 MG ORAL DAILY, (Reported) Metoprolol Tartrate* (Metoprolol Tartrate*), 25 MG ORAL DAILY, (Reported) Omeprazole (Omeprazole), 40 MG ORAL DAILY, (Reported) Venlafaxine Hcl* (Venlafaxine Hcl Er*), 150 MG ORAL DAILY, (Reported) Discontinued Medications Lisinopril* (Zestril*), 20 MG ORAL BID, (Reported) Discontinued Reason: Prescription changed Metoprolol Succinate* (Metoprolol Succinate*), 25 MG ORAL DAILY, (Reported) Discontinued Reason: Prescription changed Venlafaxine Hcl* (Effexor*), 25 MG ORAL THREE TIMES A DAY, (Reported) Discontinued Reason: Prescription changed Patient History History Provided By: Patient, Medical Record, PMD Healthcare decision maker N Resuscitation status Advanced Directive on File Past Medical/Surgical History Past Medical/Surgical History: (1) Hip pain (2) Fracture of femoral neck, right (3) Fall (4) Intertrochanteric fracture of right femur (5) Hip fracture, right Review of Systems Review of Symptoms General ROS: no weight loss or fever Psychological ROS: no depression or mood changes, no memory loss Ophthalmic ROS: no visual changes or eye irritation ENT ROS: no nasal congestion, hearing loss, dizziness Allergy and Immunology ROS: no allergic symptoms or urticaria Hematological and Lymphatic ROS: no swollen glands, unusual bleeding or bruising Endocrine ROS: no polyuria, polydipsia, weight changes, temperature intolerance Respiratory ROS: no cough, shortness of breath, or wheezing Cardiovascular ROS: no chest pain or dyspnea on exertion Gastrointestinal ROS: denies abdominal pain, bright red blood in stool. Musculoskeletal ROS: no myalgias or arthralgias Neurological ROS: no TIA or stroke symptoms Dermatological ROS: no new or changing skin lesions, rashes or pruritis Physical Exam Physical Exam General appearance: alert, cooperative, no distress, appears stated age Head: Normocephalic, without obvious abnormality, atraumatic Eyes: conjunctivae/corneas clear. PERRL, EOM's intact. Fundi benign Throat: Lips, mucosa, and tongue normal. Teeth and gums normal Neck: supple, symmetrical, trachea midline, no adenopathy, thyroid: not enlarged, symmetric, no tenderness/mass/nodules, no carotid bruit and no JVD Lungs: clear to auscultation bilaterally Heart: regular rate and rhythm, S1, S2 normal, no murmur, click, rub or gallop Abdomen: soft, non-tender. Bowel sounds normal. No masses, no organomegaly Extremities: extremities normal, atraumatic, no cyanosis or edema Pulses: 2+ and symmetric Skin: Skin color, texture, turgor normal. No rashes or lesions Neurologic: Grossly normal Last 24 Hour Vital Signs Date Time Temp Pulse Resp B/P (MAP) Pulse Ox O2 Delivery O2 Flow Rate FiO2 07/01/20 16:00 99.0 96 18 132/83 (99) 96 07/01/20 13:51 97.9 07/01/20 12:00 97.9 96 18 131/67 (88) 98 07/01/20 09:00 Room Air 07/01/20 08:47 118/62 07/01/20 08:45 81 118/62 07/01/20 08:00 98.3 81 18 118/62 (80) 96 07/01/20 04:00 98.7 84 18 120/62 (81) 96 07/01/20 00:00 98.5 75 17 116/68 (84) 96 06/30/20 21:00 Room Air 06/30/20 20:44 126/68 06/30/20 20:00 98.1 98 18 126/68 (87) 98 Intake and Output 06/30/20 07/01/20 19:00 07:00 Intake Total 480 ml Balance 480 ml Intake Oral 480 ml # Voids 2 Laboratory Tests Test 07/01/20 04:50 White Blood Count 11.6 K/UL (4.8-10.8) #H Red Blood Count 3.76 M/UL (4.20-5.40) L Hemoglobin 11.2 G/DL (12.0-16.0) L Hematocrit 34.0 % (37.0-47.0) L Mean Corpuscular Volume 91 FL (80-99) Mean Corpuscular Hemoglobin 29.8 PG (27.0-31.0) Mean Corpuscular Hemoglobin Concent 32.9 G/DL (32.0-36.0) Red Cell Distribution Width 12.5 % (11.6-14.8) Platelet Count 261 K/UL (150-450) Mean Platelet Volume 6.9 FL (6.5-10.1) Neutrophils (%) (Auto) 77.3 % (45.0-75.0) H Lymphocytes (%) (Auto) 10.3 % (20.0-45.0) L Monocytes (%) (Auto) 11.2 % (1.0-10.0) H Eosinophils (%) (Auto) 0.3 % (0.0-3.0) Basophils (%) (Auto) 0.9 % (0.0-2.0) Sodium Level 134 MMOL/L (136-145) L Potassium Level 4.5 MMOL/L (3.5-5.1) Chloride Level 101 MMOL/L (98-107) Carbon Dioxide Level 33 MMOL/L (21-32) H Anion Gap 0 mmol/L (5-15) L Blood Urea Nitrogen 20 mg/dL (7-18) H Creatinine 0.8 MG/DL (0.55-1.30) Estimat Glomerular Filtration Rate > 60 mL/min (>60) Glucose Level 115 MG/DL (74-106) H Hemoglobin A1c 6.0 % (4.3-6.0) Calcium Level 9.1 MG/DL (8.5-10.1) Magnesium Level 1.9 MG/DL (1.8-2.4) Troponin I 0.000 ng/mL (0.000-0.056) Triglycerides Level 89 MG/DL (30-150) Cholesterol Level 208 MG/DL (< 200) H LDL Cholesterol 128 mg/dL (<100) H HDL Cholesterol 52 MG/DL (40-60) Cholesterol/HDL Ratio 4.0 (3.3-4.4) Thyroid Stimulating Hormone (TSH) 1.207 uiU/mL (0.358-3.740) Height (Feet): 5 Height (Inches): 2.00 Weight (Pounds): 149 Medications Current Medications Medications (Trade) Dose Ordered Sig/Maliha Route PRN Reason Start Time Stop Time Status Last Admin Dose Admin Acetaminophen (Tylenol) 650 mg Q4H PRN ORAL Mild Pain (Pain Scale 1-3) 06/30/20 16:15 07/30/20 16:14 07/01/20 13:21 Acetaminophen/ Hydrocodone Bitart ([place] 7.5/325) 1 tab Q4H PRN ORAL PAIN SCALE 3-5 07/01/20 11:30 07/08/20 11:29 Docusate Sodium (Colace) 100 mg EVERY 12 HOURS ORAL 06/30/20 21:00 07/30/20 20:59 07/01/20 08:45 Enoxaparin Sodium (Lovenox) 40 mg DAILY SUBQ 06/30/20 18:00 09/28/20 17:59 07/01/20 08:47 Lisinopril (PriniviL) 20 mg Q12HR ORAL 06/30/20 21:00 07/30/20 20:59 06/30/20 20:44 Metoprolol Succinate (Toprol XL) 25 mg DAILY ORAL 07/01/20 09:00 09/29/20 08:59 07/01/20 08:45 Morphine Sulfate (Morphine Sulfate) 2 mg Q4H PRN IVP PAIN 5-7 07/01/20 11:30 07/08/20 11:29 07/01/20 17:29 Morphine Sulfate (Morphine Sulfate) 4 mg Q4H PRN IVP Severe Pain (Pain Scale 7-10) 07/01/20 11:30 07/07/20 11:29 Ondansetron HCl (Zofran) 4 mg Q6H PRN IVP Nausea & Vomiting 07/01/20 11:30 07/31/20 11:29 Polyethylene Glycol (Miralax) 17 gm HSPRN PRN ORAL Constipation 06/30/20 16:15 07/30/20 16:14 Venlafaxine HCl (Effexor) 25 mg THREE TIMES A DAY ORAL 06/30/20 18:00 09/28/20 17:59 07/01/20 17:16 Assessment/Plan Problem List: (1) Hip pain ICD Codes: M25.559 - Pain in unspecified hip SNOMED: 02970575 (2) Fracture of femoral neck, right ICD Codes: S72.001A - Fracture of unspecified part of neck of right femur, initial encounter for closed fracture SNOMED: 5756153, [id number] (3) Fall Assessment & Plan: fall while standing ground level no loc full exam done. no other subsequent injury noted ct reviewed fairly isolated ortho. ortho input appreciated pain control pt/ot thank you There is marked age-related enlargement of the ventricles and extra axial CSF spaces. There is considerable periventricular deep white matter low- attenuation, consistent with chronic microvascular ischemic changes. No acute intracranial hemorrhage or edema. No mass effect nor midline shift. Otherwise normal riddle- white differentiation. The calvarium is intact. The mastoids are clear. There is maxillary, ethmoid, and sphenoid sinus disease. No acute fracture. No dislocation. No prevertebral soft tissue swelling. There is slight anterior offset of C2 on C3, C3 on C4, and C4 on C5. There is thickening and calcification of the posterior transverse ligament of the odontoid. There is degenerative narrowing the anterior atlantoaxial joint. At C2-3, there is bilateral facet arthrosis. No significant disc bulge or protrusion or spinal stenosis. At C3-4, there is severe left neural foraminal stenosis. No significant disc bulge or protrusion, spinal stenosis, or neural foraminal stenosis. There is facet arthrosis on the left. At C4-5, no significant disc bulge or protrusion, spinal stenosis, or neural foraminal stenosis. At C5-6, there is mild degenerative disc narrowing. There is mild bilateral neural foraminal narrowing. At C6-7 and C7-T1, no significant disc bulge or protrusion, spinal stenosis, or neural foraminal stenosis. There is bilateral facet arthrosis. There is some mucosal irregularity with surface bubbles involving the posterior nasopharynx. There is extensive sinus disease. Impression: No acute bony trauma Degenerative changes as detailed on a level by level basis above Some apparent surface irregularity of the posterior nasopharynx. Probably due to secretions, but mucosal lesion also possible. Consider direct inspection ICD Codes: W19.XXXA - Unspecified fall, initial encounter SNOMED: 9511224, 075218515 (4) Hip fracture, right ICD Codes: S72.001A - Fracture of unspecified part of neck of right femur, initial encounter for closed fracture SNOMED: 456463073 (5) Intertrochanteric fracture of right femur Assessment & Plan: There is a comminuted intertrochanteric fracture of the right hip. No associated pelvic fracture. The bones are osteoporotic. The joint spaces are preserved. Impression: Positive for right hip intertrochanteric fracture as per ortho thank you ICD Codes: S72.141A - Displaced intertrochanteric fracture of right femur, initial encounter for closed fracture SNOMED: 798188464, [id number] Roldan Rose Jul 01, 2020 18:43
--- NOTE | 2020-07-01 19:24 | NUR ---
NURSE HAND-OFF: Important Events on Shift:[pain management, NPO at midnight, for surgery tomorrow in AM, consent signed in chart] Patient Status: [stable] Diet: [cardiac] Pending Orders: [] Pending Results/Labs:[] Pending MD notification:[] Latest Vital Signs: Temperature 99.0 , Pulse 96 , B/P 132 /83 , Respiratory Rate 18 , O2 SAT 96 , Nasal Cannula, O2 Flow Rate 2.0 . Vital Sign Comment: [] Latest Austin Fall Score: 60 Fall Risk: High Risk Safety Measures: Call light Within Reach, Bed Alarm Zone 1, Side Rails Side Rails x2, Bed position Low and Locked. Fall Precautions: Yellow Socks Patient Fall Education Report given to [JUAN ALBERTO Segovia].
--- NOTE | 2020-07-01 19:35 | NUR ---
NURSE NOTES: received patient on bed, awake and verbally responsive. on nc @ 2lpm. no sob. denies any pain at the moment. with right ac iv access, saline lock. noted with purewick as external urinary catheter. per belgica, " R ORIF tomorrow am, consent signed by the patient, npo post midnight. reiterated to call and ask for assistance to prevent fall or injury. bed locked and in lowest position. call light and light button within easy reach. will continue plan of care.
[2020-07-01 20:00] VITALS: BP 154/87
[2020-07-02] VITALS (19 sets, daily range): BP systolic 109–167; BP diastolic 54–89
[2020-07-02] MEDS: Morphine Sulfate 2mg/ml Inj(IV/IM USE ONLY) IVP PRN (05:44)
[2020-07-02] MEDS ORDERED: fentaNYL 100 mcg/2 mL IV ONE (06:03)
[2020-07-02] MEDS ORDERED: Lidocaine 1% MPF 10mg/ml 5ml ONE (06:03)
[2020-07-02] MEDS ORDERED: Bupivacaine 0.5% Inj 30 ml vial INJ ONE ×2 (06:22→06:23)
[2020-07-02] MEDS ORDERED: Duramorph PF 5mg/10ml amp ONE (06:22)
[2020-07-02] MEDS ORDERED: NeoSporin Gu Irrig 1ml Amp IRRIG ONE (06:23)
[2020-07-02] MEDS ORDERED: Bacitracin 50000 Units Vial ONE (06:23)
--- NOTE | 2020-07-02 06:30 | NUR ---
NURSE NOTES: patient was picked up by the transporter. patient is awake and verbally responsive. NPO. no pain at the moment. surgery and blood transfusion consent signed by the patient. pre op checklist done. all belongings endorsed to 3E charge nurse pm(lux)and am(santos). charge nurse made aware.
--- NOTE | 2020-07-02 06:37 | Pre-Procedure Note/Attestation ---
Pre-Procedure Note/Attestation Complete Prior to Procedure Planned Procedure: right Procedure Narrative: right hip ORIF Indications for Procedure Pre-Operative Diagnosis: Right hip IT fracture Attestation I attest that I discussed the nature of the procedure; its benefits; risks and complications; and alternatives (and the risks and benefits of such alternatives), prior to the procedure, with the patient (or the patient's legal sales representative door to door). I attest that, if there was a reasonable possibility of needing a blood transfusion, the patient (or the patient's legal sales representative door to door) was given the [facility] standardized written summary, pursuant to the Ghanshyam Robbie Blood Safety Act ([place] Health and Safety Code # 1645, as amended). I attest that I re-evaluated the patient just prior to the surgery and that there has been no change in the patient's H&P, except as documented below:NONE Neel Gonzalez MD Jul 02, 2020 06:37
[2020-07-02] MEDS ORDERED: HYDROmorphone 1mg/ml Carpuject SUBQ PRN (06:45)
[2020-07-02] MEDS ORDERED: Milk of Magnesia 30ml Ud ORAL PRN (06:45)
[2020-07-02] MEDS ORDERED: HYDROcodone/Acetamin 5/325 tab ORAL PRN (06:45)
[2020-07-02] MEDS ORDERED: HYDROcodone/Acetamin 7.5/325 tab ORAL PRN (06:45)
[2020-07-02 06:53] LABS: BASOPHILS % (AUTO) 0.7 % (0.0-2.0); EOSINOPHILS % (AUTO) 0.7 % (0.0-3.0); HEMATOCRIT 33.6 % (37.0-47.0); HEMOGLOBIN 11.3 G/DL (12.0-16.0); LYMPHOCYTES % (AUTO) 10.8 % (20.0-45.0); MEAN CORPUSCULAR VOLUME 88 FL (80-99); MONOCYTES % (AUTO) 12.6 % (1.0-10.0); NEUTROPHILS % (AUTO) 75.2 % (45.0-75.0); PLATELET COUNT 234 K/UL (150-450); RED BLOOD COUNT 3.81 M/UL (4.20-5.40); RED CELL DISTRIBUTION WIDTH 13.3 % (11.6-14.8); WHITE BLOOD COUNT 11.6 K/UL (4.8-10.8)
[2020-07-02] MEDS ORDERED: LR 1000ml ONE (07:00)
[2020-07-02] MEDS ORDERED: Sterile Water Irrig 1000ml IRRIG ONE (07:00)
[2020-07-02] MEDS ORDERED: NS Irrig 1000ml ONE (07:00)
[2020-07-02 07:13] LABS: ANION GAP 6 mmol/L (5-15); BLOOD UREA NITROGEN 18 mg/dL (7-18); CARBON DIOXIDE 29 MMOL/L (21-32); CHLORIDE 101 MMOL/L (98-107); CREATININE 0.7 MG/DL (0.55-1.30); POTASSIUM 4.1 MMOL/L (3.5-5.1); SODIUM 136 MMOL/L (136-145)
[2020-07-02] MEDS ORDERED: LR 1000ml 1,000 ML IVLG SCH (07:45)
[2020-07-02] MEDS ORDERED: Ketorolac 30mg Inj IV PRN (07:45)
[2020-07-02] MEDS ORDERED: DiphenhydrAMINE 50mg/ml Inj IVP PRN (07:45)
[2020-07-02] MEDS ORDERED: Hydromorphone 0.5mg/0.5ml inj IVP PRN (07:45)
[2020-07-02] MEDS ORDERED: NS Irrig 1000ml IRRIG ONE (07:46)
[2020-07-02] MEDS ORDERED: Acetaminophen (Non formulary) 100 ML IV ONE (08:00)
--- NOTE | 2020-07-02 08:19 | Brief Operative Note ---
Immediate Post Operative Note Operative Note Chief Complaint: right hip injury Pre-op Diagnosis: Right hip IT fracture Procedure: right hip ORIF Post-op Diagnosis: same as pre-op Findings: consistent w/pre-op dx studies Surgeon: md [employer] Instructor: hernesto pham Anesthesiologist: md vinayak Anesthesia: general Specimen: none Complications: none Condition: stable Fluids: ns Estimated Blood Loss: minimal Drains: none Implant(s) used?: Yes - Neel Solomon MD Jul 02, 2020 08:19
[2020-07-02] MEDS ORDERED: Midazolam 2mg/2ml Inj IVP SCH (08:45)
[2020-07-02] MEDS: Venlafaxine 25mg tab ORAL SCH ×3 (09:00→18:22)
[2020-07-02] MEDS: Enoxaparin 40mg Inj SUBQ SCH (09:00)
[2020-07-02] MEDS: Lisinopril 20mg tab ORAL SCH ×2 (09:00→20:08)
[2020-07-02] MEDS: Docusate 100mg cap ORAL SCH ×3 (09:00→18:21)
--- NOTE | 2020-07-02 09:15 | Operative Note - Dictated ---
DATE OF OPERATION: 07/02/2020 PREOPERATIVE DIAGNOSIS: Right hip comminuted intertrochanteric fracture. POSTOPERATIVE DIAGNOSIS: Right hip comminuted intertrochanteric fracture. PROCEDURE: Right hip open reduction and internal fixation using a short 120-degree by 10 mm diameter gamma nail with distal screw fixation. SURGEON: Neel Gonzalez MD. [employer] SCI[employer] DEAN: Kenya Luna PA-C. ANESTHESIOLOGIST: Ronan Rhodes MD. ANESTHESIA: General LMA anesthesia. ESTIMATED BLOOD LOSS: Less than 100 mL. COMPLICATIONS: None. BRIEF HISTORY: The patient is a pleasant 85-year-old ambulatory patient that was walking a dog and tripped over her shoes and fell and broke her right hip. She had immediate onset of pain about the right hip. After full discussion of risks and benefits of the surgery and complications associated with it including infection, bleeding, neurovascular complication, possibility of continued pain, possibility of nonunion, possibility of malunion, possibility of hardware failure, needing further surgery, possibility of need for conversion to hemiarthroplasty, possibility of the limp, weakness and need for use of assistive devices including walkers, canes, wheelchairs or other assistive devices, and other complication that may arise, including DVT, PE. She opted for surgical treatment as described above. This was also spoke and discussed with her daughter, Pamela Rodriguez. OPERATIVE PROCEDURE: The patient was brought to the operating room table and was placed supine. All pressure points were well padded. General LMA anesthesia was induced and the patient was placed on a fracture table. The right leg was well padded and was placed in traction and the left leg was placed in a well leg craft. All pressure points were well padded. The right hip was then prepped and draped in usual sterile fashion and the right leg was placed in traction and reduction was checked under x-ray, appeared to be excellent. At this point, a standard incision was made approximately 1.5 to 2 cm proximal to the greater trochanter. The incision was taken through the subcutaneous tissue. The gluteal fascia was opened. The greater trochanter was then palpated and using a guidewire, the guidewire was placed through the greater trochanter into the intramedullary aspect of the femur. The position was checked and appeared to be excellent. Open reamer was used to open up and then 125-degree nail with 10 mm diameter was placed in without any complication. Once this was completed, using the guide, a guidewire was placed through lateral cortex of the femur through the nail into the neck and head of the femur. The position was placed in a central position. The subcortical bone was reached with a K-wire. At this point, measurements were made, 90 mm appeared to be the right size. Therefore, a 90 mm drill was used and subsequently a 90 mm lag screw was placed in without any complication. Excellent purchase of screw on to the bone was obtained. At this point, the lag screw was then locked from the top and was backed up by half a turn to allow for compression. Distal locking was performed using the guide with a 32.5 mm screw. At this point, all wounds were thoroughly irrigated using copious amount of fluid. The guides were removed. Final x-rays were obtained. The fracture was reduced anatomically on AP and lateral and hardware was in excellent position. The gluteal fascia was closed using #1 Vicryl suture. Subcutaneous tissue was closed using 2-0 Vicryl suture. The skin was closed using 3-0 Monocryl suture. All lap counts and instrument counts were correct. The patient was taken to recovery room in stable condition. Neel Gonzalez M.D. DR: TOSHIA JOB#: [id number] CC: NIDA
--- NOTE | 2020-07-02 09:44 | Immediate Post-Op Evaluation ---
Immediate Post-Op Evalulation Immediate Post-Op Evalulation Procedure: ORIF of R femoral Fx Date of Evaluation: Jul 02, 2020 Time of Evaluation: 08:20 IV Fluids: 1000 Blood Products: none Estimated Blood Loss: 50 Urinary Output: 100 Blood Pressure Systolic: 146 Blood Pressure Diastolic: 74 Pulse Rate: 78 Respiratory Rate: 20 O2 Sat by Pulse Oximetry: 99 Temperature (Fahrenheit): 97.6 Pain Score (1-10): 2 Nausea: No Vomiting: No Complications none Patient Status: reacts, patent, none Hydration Status: adequate Ronan Rhodes MD Jul 02, 2020 09:44
--- NOTE | 2020-07-02 09:45 | NUR ---
NURSE NOTES: PATIENT RECEIVED FROM PACU VIA 4 [facility] BED. PATIENT AROUSABLE TO NAME. O2 ON VIA NC @ 2L. RR EVEN UNLABORED; SKIN W/D. RIGHT HIP SURGICAL SITE C/D/I WITH ICE PACK IN PLACE. NEUROVASCULAR CHECKS WNL. IV SITE PATENT AND SECURED. BILATERAL PEDAL PULSES EQUAL IN STRENGTH. SCDS ON. BED IN LOW AND LOCKED POSITION. CALL LIGHT WITHIN REACH.BEDSIDE REPORT RECEIVED. WILL CONTINUE TO MONITOR.
[2020-07-02] MEDS: Metoprolol Succinate XL 25mg tab ORAL SCH (10:15)
--- NOTE | 2020-07-02 10:46 | Pulmonology Progress Note ---
Subjective Allergies: Coded Allergies: No Known Allergies (Verified , 07/17/10) Subjective s/p ORID this am still sleeping HD stable Objective Last 24 Hour Vital Signs Date Time Temp Pulse Resp B/P (MAP) Pulse Ox O2 Delivery O2 Flow Rate FiO2 07/02/20 09:45 97.6 07/02/20 09:45 97.6 07/02/20 09:44 78 20 99 07/02/20 09:30 97.8 89 23 156/79 100 Nasal Cannula 3 07/02/20 09:15 85 14 153/78 100 Nasal Cannula 3 07/02/20 09:00 80 15 167/83 100 Nasal Cannula 3 07/02/20 08:50 75 15 160/85 100 Simple Mask 6 07/02/20 08:40 79 17 159/77 100 Simple Mask 6 07/02/20 08:35 79 20 158/64 100 Simple Mask 6 07/02/20 08:31 97.6 76 22 154/78 100 Simple Mask 6 07/02/20 06:14 98.6 07/02/20 04:00 98.6 90 20 122/71 (88) 98 07/02/20 02:02 98.8 07/02/20 00:00 98.8 92 19 137/79 (98) 96 07/01/20 22:01 98.5 07/01/20 21:31 154/87 07/01/20 21:00 Room Air 07/01/20 20:00 98.5 91 19 154/87 (109) 98 07/01/20 17:59 99.0 07/01/20 16:00 99.0 96 18 132/83 (99) 96 07/01/20 13:51 97.9 07/01/20 12:00 97.9 96 18 131/67 (88) 98 Intake and Output 07/01/20 07/02/20 19:00 07:00 Intake Total 400 ml 200 ml Output Total 400 ml Balance 400 ml -200 ml Intake Oral 400 ml 200 ml Output Urine Total 400 ml Objective General Appearance: no apparent distress, sedated Lines, tubes and drains: peripheral HEENT: normocephalic, atraumatic, anicteric, Respiratory/Chest: chest wall non-tender, lungs clear, no respiratory distress, no accessory muscle use Cardiovascular/Chest: normal rate - Abdomen: normal bowel sounds, non tender, soft Extremities: normal range of motion, no calf tenderness, normal capillary refill, R hip dressing C/D/I Skin Exam: normal pigmentation, warm/dry Neurologic: sedated, Musculoskeletal: normal muscle bulk Microbiology Date/Time Source Procedure Growth Status 06/30/20 11:02 Nasopharynx SARS-CoV-2 RdRp Gene Assay - Final Complete Laboratory Tests 07/02/20 05:50: White Blood Count 11.6H, Red Blood Count 3.81L, Hemoglobin 11.3L, Hematocrit 33.6L, Mean Corpuscular Volume 88, Mean Corpuscular Hemoglobin 29.6, Mean Corpuscular Hemoglobin Concent 33.6, Red Cell Distribution Width 13.3, Platelet Count 234, Mean Platelet Volume 7.7, Neutrophils (%) (Auto) 75.2H, Lymphocytes (%) (Auto) 10.8L, Monocytes (%) (Auto) 12.6H, Eosinophils (%) (Auto) 0.7, Basophils (%) (Auto) 0.7, Sodium Level 136, Potassium Level 4.1, Chloride Level 101, Carbon Dioxide Level 29, Anion Gap 6, Blood Urea Nitrogen 18, Creatinine 0.7, Estimat Glomerular Filtration Rate > 60, Glucose Level 116H, Calcium Level 9.0 Current Medications Medications (Trade) Dose Ordered Sig/Maliha Route PRN Reason Start Time Stop Time Status Last Admin Dose Admin Acetaminophen (Tylenol) 650 mg Q4H PRN ORAL Mild Pain (Pain Scale 1-3) 06/30/20 16:15 07/30/20 16:14 07/02/20 01:32 Acetaminophen (Tylenol) 650 mg Q4H PRN ORAL Mild Pain (Pain Scale 1-3) 07/02/20 06:45 08/01/20 06:44 UNV Acetaminophen (Tylenol) 650 mg Q4H PRN ORAL Temp >100.5 07/02/20 06:45 08/01/20 06:44 UNV Acetaminophen/ Hydrocodone Bitart ([place] 5/325) 2 tab Q6H PRN ORAL Severe Pain (Pain Scale 7-10) 07/02/20 06:45 07/09/20 06:44 UNV Acetaminophen/ Hydrocodone Bitart ([place] 7.5/325) 1 tab Q4H PRN ORAL PAIN SCALE 3-5 07/01/20 11:30 07/08/20 11:29 Acetaminophen/ Hydrocodone Bitart ([place] 7.5/325) 1 tab Q4H PRN ORAL Moderate Pain (Pain Scale 4-6) 07/02/20 06:45 07/09/20 06:44 UNV Aspirin (ASA) 325 mg BID ORAL 07/03/20 09:00 08/17/20 08:59 UNV Cefazolin Sodium 2 gm/Dextrose 110 ml @ 220 mls/hr EVERY 8 HOURS IV 07/02/20 14:00 07/02/20 22:29 UNV Celecoxib (CeleBREX) 200 mg DAILY ORAL 07/02/20 09:00 09/30/20 08:59 UNV Dextrose/ Electrolytes 1,000 ml @ 75 mls/hr [id number] IV 07/02/20 06:45 08/01/20 06:44 UNV Docusate Sodium (Colace) 100 mg EVERY 12 HOURS ORAL 06/30/20 21:00 07/30/20 20:59 07/01/20 21:31 Docusate Sodium (Colace) 100 mg THREE TIMES A DAY ORAL 07/02/20 09:00 08/01/20 08:59 UNV Enoxaparin Sodium (Lovenox) 40 mg DAILY SUBQ 06/30/20 18:00 09/28/20 17:59 07/01/20 08:47 Ferrous Sulfate (Feosol) 325 mg THREE TIMES A DAY ORAL 07/02/20 09:00 09/30/20 08:59 UNV Hydromorphone HCl (Dilaudid) 1 mg Q4H PRN SUBQ Mild Pain (Pain Scale 1-3) 07/02/20 06:45 07/09/20 06:44 UNV Lisinopril (PriniviL) 20 mg Q12HR ORAL 06/30/20 21:00 07/30/20 20:59 07/01/20 21:31 Magnesium Hydroxide (Mom) 30 ml DAILYPRN PRN ORAL Constipation 07/02/20 06:45 08/01/20 06:44 UNV Metoprolol Succinate (Toprol XL) 25 mg DAILY ORAL 07/01/20 09:00 09/29/20 08:59 07/01/20 08:45 Morphine Sulfate (Morphine Sulfate) 2 mg Q4H PRN IVP PAIN 5-7 07/01/20 11:30 07/08/20 11:29 07/02/20 05:44 Morphine Sulfate (Morphine Sulfate) 4 mg Q4H PRN IVP Severe Pain (Pain Scale 7-10) 07/01/20 11:30 07/07/20 11:29 Ondansetron HCl (Zofran) 4 mg Q6H PRN IVP Nausea & Vomiting 07/01/20 11:30 07/31/20 11:29 Oxycodone HCl (OxyCONTIN) 10 mg EVERY 12 HOURS ORAL 07/02/20 09:00 07/09/20 08:59 UNV Pantoprazole (Protonix) 40 mg DAILY ORAL 07/02/20 09:00 08/01/20 08:59 UNV Polyethylene Glycol (Miralax) 17 gm HSPRN PRN ORAL Constipation 06/30/20 16:15 07/30/20 16:14 Prochlorperazine (Compazine) 10 mg Q6H PRN IVP Nausea & Vomiting 07/02/20 06:45 08/01/20 06:44 UNV Venlafaxine HCl (Effexor) 25 mg THREE TIMES A DAY ORAL 06/30/20 18:00 09/28/20 17:59 07/01/20 17:16 Assessment/Plan Assessment/Plan ASSESSMENT Right intertrochanteric fracture s/p mechanical fall s/p ORIF R hip 07/02 HTN HLD Hx of NE Depression PLAN OF CARE MS floor cardio cleared for surgery ECHO with pEF , mild pulm HTN troponin x 2 NGT BP management with current regimen- stable lipid panel with elevated LDL need statin on dc and education on low fat low cholesterol diet s/p ORIF 07/02 pain management, DVT prophylaxis hip surgery precautions PT eval and Rx fall precautions IS while in the bed home meds resumed supportive care case discussed and evaluated by supervising physician Marley Bansal NP Jul 02, 2020 10:46
--- NOTE | 2020-07-02 11:15 | Surgery Progress Note ---
Surgery Progress Note Subjective Additional Comments Patient seen and examined bedside. No acute events. Resting comfortably. Labs reviewed micro reviewed imaging reviewed. Afebrile hemodynamically stable at this time OR today Objective Last 24 Hour Vital Signs Date Time Temp Pulse Resp B/P (MAP) Pulse Ox O2 Delivery O2 Flow Rate FiO2 07/02/20 09:45 97.6 07/02/20 09:45 97.6 07/02/20 09:44 78 20 99 07/02/20 09:30 97.8 89 23 156/79 100 Nasal Cannula 3 07/02/20 09:15 85 14 153/78 100 Nasal Cannula 3 07/02/20 09:00 80 15 167/83 100 Nasal Cannula 3 07/02/20 09:00 Nasal Cannula 2.0 07/02/20 08:50 75 15 160/85 100 Simple Mask 6 07/02/20 08:40 79 17 159/77 100 Simple Mask 6 07/02/20 08:35 79 20 158/64 100 Simple Mask 6 07/02/20 08:31 97.6 76 22 154/78 100 Simple Mask 6 07/02/20 06:14 98.6 07/02/20 04:00 98.6 90 20 122/71 (88) 98 07/02/20 02:02 98.8 07/02/20 00:00 98.8 92 19 137/79 (98) 96 07/01/20 22:01 98.5 07/01/20 21:31 154/87 07/01/20 21:00 Room Air 07/01/20 20:00 98.5 91 19 154/87 (109) 98 07/01/20 17:59 99.0 07/01/20 16:00 99.0 96 18 132/83 (99) 96 07/01/20 13:51 97.9 07/01/20 12:00 97.9 96 18 131/67 (88) 98 I&O Intake and Output 07/01/20 07/02/20 19:00 07:00 Intake Total 400 ml 200 ml Output Total 400 ml Balance 400 ml -200 ml Intake Oral 400 ml 200 ml Output Urine Total 400 ml Cardiovascular: RSR Respiratory: decreased breath sounds Abdomen: soft, non-tender, present bowel sounds, non-distended Extremities: no tenderness, no cyanosis Laboratory Tests Test 07/02/20 05:50 White Blood Count 11.6 K/UL (4.8-10.8) H Red Blood Count 3.81 M/UL (4.20-5.40) L Hemoglobin 11.3 G/DL (12.0-16.0) L Hematocrit 33.6 % (37.0-47.0) L Mean Corpuscular Volume 88 FL (80-99) Mean Corpuscular Hemoglobin 29.6 PG (27.0-31.0) Mean Corpuscular Hemoglobin Concent 33.6 G/DL (32.0-36.0) Red Cell Distribution Width 13.3 % (11.6-14.8) Platelet Count 234 K/UL (150-450) Mean Platelet Volume 7.7 FL (6.5-10.1) Neutrophils (%) (Auto) 75.2 % (45.0-75.0) H Lymphocytes (%) (Auto) 10.8 % (20.0-45.0) L Monocytes (%) (Auto) 12.6 % (1.0-10.0) H Eosinophils (%) (Auto) 0.7 % (0.0-3.0) Basophils (%) (Auto) 0.7 % (0.0-2.0) Sodium Level 136 MMOL/L (136-145) Potassium Level 4.1 MMOL/L (3.5-5.1) Chloride Level 101 MMOL/L (98-107) Carbon Dioxide Level 29 MMOL/L (21-32) Anion Gap 6 mmol/L (5-15) Blood Urea Nitrogen 18 mg/dL (7-18) Creatinine 0.7 MG/DL (0.55-1.30) Estimat Glomerular Filtration Rate > 60 mL/min (>60) Glucose Level 116 MG/DL (74-106) H Calcium Level 9.0 MG/DL (8.5-10.1) Plan Problems: (1) Hip pain (2) Fracture of femoral neck, right (3) Fall Assessment & Plan: fall while standing ground level no loc full exam done. no other subsequent injury noted ct reviewed fairly isolated ortho. ortho input appreciated pain control pt/ot thank you There is marked age-related enlargement of the ventricles and extra axial CSF spaces. There is considerable periventricular deep white matter low- attenuation, consistent with chronic microvascular ischemic changes. No acute intracranial hemorrhage or edema. No mass effect nor midline shift. Otherwise normal riddle- white differentiation. The calvarium is intact. The mastoids are clear. There is maxillary, ethmoid, and sphenoid sinus disease. No acute fracture. No dislocation. No prevertebral soft tissue swelling. There is slight anterior offset of C2 on C3, C3 on C4, and C4 on C5. There is thickening and calcification of the posterior transverse ligament of the odontoid. There is degenerative narrowing the anterior atlantoaxial joint. At C2-3, there is bilateral facet arthrosis. No significant disc bulge or pr otrusion or spinal stenosis. At C3-4, there is severe left neural foraminal stenosis. No significant disc bulge or protrusion, spinal stenosis, or neural foraminal stenosis. There is facet arthrosis on the left. At C4-5, no significant disc bulge or protrusion, spinal stenosis, or neural foraminal stenosis. At C5-6, there is mild degenerative disc narrowing. There is mild bilateral neural foraminal narrowing. At C6-7 and C7-T1, no significant disc bulge or protrusion, spinal stenosis, or neural foraminal stenosis. There is bilateral facet arthrosis. There is some mucosal irregularity with surface bubbles involving the posterior nasopharynx. There is extensive sinus disease. Impression: No acute bony trauma Degenerative changes as detailed on a level by level basis above Some apparent surface irregularity of the posterior nasopharynx. Probably due to secretions, but mucosal lesion also possible. Consider direct inspection (4) Hip fracture, right (5) Intertrochanteric fracture of right femur Assessment & Plan: There is a comminuted intertrochanteric fracture of the right hip. No associated pelvic fracture. The bones are osteoporotic. The joint spaces are preserved. Impression: Positive for right hip intertrochanteric fracture as per ortho thank you Roldan Rose Jul 02, 2020 11:15
--- NOTE | 2020-07-02 11:35 | NUR ---
NURSE NOTES: PATIENT RESTING COMFORTABLY. EASY TO AROUSE; VSS AFEBRILE. DENIES SURGICAL PAIN. CONTINUOUS PULSE OX ON. NO RESPIRATORY DISTRESS NOTED
--- NOTE | 2020-07-02 11:59 | Diagnostic Imaging Report ---
CLINICAL HISTORY: Hip pain, hip fracture COMPARISON: Diagnostic right femur radiographs 06/30/2020 FINDINGS: Fluoroscopy independent procedure performed for orthopedic surgery. 58.3 seconds of fluoroscopy time utilized by the ordering physician. Total cumulative dose is 6.5 mGy and 0.91347 mGy.m2. Total of 5 spot images are obtained demonstrating surgical fixation of the previously documented right femoral fracture. IMPRESSION: FLUOROSCOPIC IMAGING FROM ORTHOPEDIC SURGERY. PLEASE SEE OPERATIVE REPORT.
--- NOTE | 2020-07-02 12:12 | NUR ---
NURSE NOTES: AM MEDS DUE PATIENT REFUSES AT THIS TIME WELL LUNCH. SLEEPING ON AND OFF. REMAINS STABLE.
--- NOTE | 2020-07-02 12:57 | Cardiology Report ---
APPROVED REPORT EKG Measurement Heart [id number] <Conclusion> Normal sinus rhythm Normal ECG
[2020-07-02] MEDS: oxyCONTIN 10mg tab ORAL SCH (13:00)
--- NOTE | 2020-07-02 13:00 | Diagnostic Imaging Report ---
Indication: Hip pain, fracture. Status post surgery Technique: Portable frontal view of the pelvis Comparison: 06/30/2020 Findings: Interval surgical fixation of the previously described intertrochanteric fracture of the right femur by means of a dynamic hip screw and intramedullary clinton/nail. The distal end of the intramedullary clinton is affixed by one transverse screw. Symphysis pubis is maintained. Symphysis pubis is maintained. Displaced fracture fragment through the right lesser trochanter is similar to the prior exam. No new acute pelvic fracture is appreciated. IMPRESSION: Interval surgical fixation of the previously described right intertrochanteric femoral fracture.
--- NOTE | 2020-07-02 13:04 | NUR ---
PT NOTE Received MD order for PT evaluation. Attempted to see patient however patient too groggy to participate with PT at this time. Marcia AVENDANO notified, will follow.
--- NOTE | 2020-07-02 13:13 | NUR ---
NURSE NOTES: RECEIVED CALL FROM PHARMACY CONCERNING ASA AND LOVENOX ORDERED FOR PATIENT; NEEDS CLARIFICATION. PLACED CALL TO ALLA Mclean. AWAITING RETURN CALL.
[2020-07-02] MEDS: D5 1/2NS w/KCl 20mEq 1,000 ML IV SCH (14:16)
--- NOTE | 2020-07-02 15:01 | NUR ---
NURSE NOTES: Received patient in bed,asleep but easily awake when calling her name.Patient is alert and oriented x4, denies pain @ this time. Not in respirator/cardiac distress @ this time. No neurological deficit. Dressing on right hip intact. Bed is in lowest position and locked. RN set up the purewick. Patient urinated. IVF is running. Call light and personnel items within reach. Will continue plan of care.
--- NOTE | 2020-07-02 15:02 | NUR ---
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
--- NOTE | 2020-07-02 15:15 | NUR ---
NURSE NOTES: RECEIVED CALL FROM ALLA Mclean ASA AND LOVENOX ISSUE RESOLVED. DR. QUINTERO HERE MAKING ROUNDS. INFORMED PATIENT REFUSED MEDS SCHEDULED TODAY. PATIENT REMAINS STABLE. MORE AWAKE AND ALERT.
--- NOTE | 2020-07-02 15:17 | NUR ---
NURSE HAND-OFF: Important Events on Shift:N/A Patient Status: STABLE Diet: REGULAR Pending Orders: N/A Pending Results/Labs:N/A Pending MD notification:N/A Latest Vital Signs: Temperature 97.5 , Pulse 82 , B/P 126 /67 , Respiratory Rate 17 , O2 SAT 100 , Nasal Cannula, O2 Flow Rate 3 . Vital Sign Comment: STABLE Latest Austin Fall Score: 60 Fall Risk: High Risk Safety Measures: Call light Within Reach, Bed Alarm Zone 1, Side Rails Side Rails x3, Bed position Low and Locked. Fall Precautions: Yellow Socks Door Sign Patient Fall Education Report given to WIL AVENDANO.
--- NOTE | 2020-07-02 15:34 | Cardiac Electrophysiology PN ---
Assessment/Plan Assessment/Plan 1. Hypertension. On lisinopril 20 mg b.i.d. and Toprol-XL 25 mg daily and p.r.n. clonidine 2. Coronary artery disease with history of stent in the past. Remains without any chest pain. EKG is nonischemic and echocardiogram EF 60% The patient stable and tolerated right hip surgery 3. Hypertension. Continue lisinopril and metoprolol. 4. Right hip Fx. S/P ORIF Subjective Subjective S/P Right hip ORIF today. No CP or SOB Objective Last 24 Hour Vital Signs Date Time Temp Pulse Resp B/P (MAP) Pulse Ox O2 Delivery O2 Flow Rate FiO2 07/02/20 13:00 97.5 82 17 126/67 (86) 100 07/02/20 12:00 98.0 84 19 118/81 (93) 100 07/02/20 11:30 98.8 98 17 124/81 (95) 100 07/02/20 11:00 98.8 84 21 109/89 (96) 100 07/02/20 10:30 98.0 92 18 120/54 (76) 100 07/02/20 10:15 91 115/64 07/02/20 10:15 97.9 91 20 115/64 (81) 100 07/02/20 10:00 97.9 92 18 136/86 (103) 99 07/02/20 09:45 97.6 07/02/20 09:45 97.6 07/02/20 09:45 97.7 91 16 134/86 (102) 99 07/02/20 09:44 78 20 99 07/02/20 09:30 97.8 89 23 156/79 100 Nasal Cannula 3 07/02/20 09:15 85 14 153/78 100 Nasal Cannula 3 07/02/20 09:00 124/81 07/02/20 09:00 80 15 167/83 100 Nasal Cannula 3 07/02/20 09:00 Nasal Cannula 2.0 07/02/20 08:50 75 15 160/85 100 Simple Mask 6 07/02/20 08:40 79 17 159/77 100 Simple Mask 6 07/02/20 08:35 79 20 158/64 100 Simple Mask 6 07/02/20 08:31 97.6 76 22 154/78 100 Simple Mask 6 07/02/20 06:14 98.6 07/02/20 04:00 98.6 90 20 122/71 (88) 98 07/02/20 02:02 98.8 07/02/20 00:00 98.8 92 19 137/79 (98) 96 07/01/20 22:01 98.5 07/01/20 21:31 154/87 07/01/20 21:00 Room Air 07/01/20 20:00 98.5 91 19 154/87 (109) 98 07/01/20 17:59 99.0 07/01/20 16:00 99.0 96 18 132/83 (99) 96 Intake and Output 07/01/20 07/02/20 19:00 07:00 Intake Total 400 ml 200 ml Output Total 400 ml Balance 400 ml -200 ml Intake Oral 400 ml 200 ml Output Urine Total 400 ml Laboratory Tests Test 07/02/20 05:50 White Blood Count 11.6 K/UL (4.8-10.8) H Red Blood Count 3.81 M/UL (4.20-5.40) L Hemoglobin 11.3 G/DL (12.0-16.0) L Hematocrit 33.6 % (37.0-47.0) L Mean Corpuscular Volume 88 FL (80-99) Mean Corpuscular Hemoglobin 29.6 PG (27.0-31.0) Mean Corpuscular Hemoglobin Concent 33.6 G/DL (32.0-36.0) Red Cell Distribution Width 13.3 % (11.6-14.8) Platelet Count 234 K/UL (150-450) Mean Platelet Volume 7.7 FL (6.5-10.1) Neutrophils (%) (Auto) 75.2 % (45.0-75.0) H Lymphocytes (%) (Auto) 10.8 % (20.0-45.0) L Monocytes (%) (Auto) 12.6 % (1.0-10.0) H Eosinophils (%) (Auto) 0.7 % (0.0-3.0) Basophils (%) (Auto) 0.7 % (0.0-2.0) Sodium Level 136 MMOL/L (136-145) Potassium Level 4.1 MMOL/L (3.5-5.1) Chloride Level 101 MMOL/L (98-107) Carbon Dioxide Level 29 MMOL/L (21-32) Anion Gap 6 mmol/L (5-15) Blood Urea Nitrogen 18 mg/dL (7-18) Creatinine 0.7 MG/DL (0.55-1.30) Estimat Glomerular Filtration Rate > 60 mL/min (>60) Glucose Level 116 MG/DL (74-106) H Calcium Level 9.0 MG/DL (8.5-10.1) Microbiology Date/Time Source Procedure Growth Status 06/30/20 11:02 Nasopharynx SARS-CoV-2 RdRp Gene Assay - Final Complete Objective HEAD AND NECK: No JVD or carotid bruit. LUNGS: Clear. CARDIOVASCULAR: Regular S1 and S2 with no gallop or murmur. ABDOMEN: Soft. EXTREMITIES: No pitting edema. Her hip is rotated and shortened Tim Chávez MD Jul 02, 2020 15:34
[2020-07-02] MEDS: ceFAZolin 2gm/50ml Premix 50 ML IV SCH ×2 (16:50→23:43)
--- NOTE | 2020-07-02 18:47 | NUR ---
NURSE HAND-OFF: Important Events on Shift:s/p right hip surgery Patient Status: stable Diet: regular diet Pending Orders: Pending Results/Labs: Pending MD notification: Latest Vital Signs: Temperature 97.6 , Pulse 88 , B/P 118 /84 , Respiratory Rate 17 , O2 SAT 100 , Nasal Cannula, O2 Flow Rate 3 . Vital Sign Comment: Latest Austin Fall Score: 60 Fall Risk: High Risk Safety Measures: Call light Within Reach, Bed Alarm Zone 1, Side Rails Side Rails x3, Bed position Low and Locked. Fall Precautions: Yellow Socks Door Sign Patient Fall Education Report given to Piero and endorsed plan of care.
--- NOTE | 2020-07-02 19:20 | NUR ---
NURSE NOTES: Received report from JUAN ALBERTO Alonzo. Pt is awake and in no pain or distress watching TV. Bed locked and in lowest position, side rails up x2, call light within reach. IVF infusing well. Will continue to monitor.
[2020-07-03] VITALS: BP 131/62
[2020-07-03] MEDS: oxyCONTIN 10mg tab ORAL SCH ×2 (00:20→13:17)
[2020-07-03] MEDS: D5 1/2NS w/KCl 20mEq 1,000 ML IV SCH (02:20)
[2020-07-03 06:20] LABS: BASOPHILS % (AUTO) 1.6 % (0.0-2.0); EOSINOPHILS % (AUTO) 2.7 % (0.0-3.0); LYMPHOCYTES % (AUTO) 11.7 % (20.0-45.0); MEAN CORPUSCULAR VOLUME 89 FL (80-99); MONOCYTES % (AUTO) 13.9 % (1.0-10.0); NEUTROPHILS % (AUTO) 70.2 % (45.0-75.0); PLATELET COUNT 206 K/UL (150-450); RED BLOOD COUNT 3.02 M/UL (4.20-5.40); RED CELL DISTRIBUTION WIDTH 13.3 % (11.6-14.8)
--- NOTE | 2020-07-03 07:15 | NUR ---
NURSE HAND-OFF: Important Events on Shift: pt able to tolerate oral fluids so IVF dc'd Patient Status: sleeping Diet: regular Pending Orders: Pending Results/Labs: Pending MD notification: Latest Vital Signs: Temperature 98.6 , Pulse 99 , B/P 131 /62 , Respiratory Rate 18 , O2 SAT 99 , Nasal Cannula, O2 Flow Rate 2.0 . Vital Sign Comment: VSS Latest Austin Fall Score: 60 Fall Risk: High Risk Safety Measures: Call light Within Reach, Bed Alarm Zone 1, Side Rails Side Rails x2, Bed position Low and Locked. Fall Precautions: Yellow Socks Patient Fall Education Report given to JUAN ALBERTO Rutledge.
--- NOTE | 2020-07-03 07:45 | NUR ---
NURSE NOTES: Received report from JUAN ALBERTO Harry. Pt awake in bed, alert and oriented x4, denies pain at this time. No SOB or respiratory distress, on NC 2L. IS at bedside, instructed pt to use IS. Dressing on right hip clean and intact. Bed in lowest position and locked. Call light within reach. Will continue plan of care.
[2020-07-03 08:00] VITALS: BP 136/74
--- NOTE | 2020-07-03 08:05 | Pulmonology Progress Note ---
Subjective Allergies: Coded Allergies: No Known Allergies (Verified , 07/17/10) Subjective s/p ORIF 07/02 pain controlled with current regimen still did not work with PT no SOB< no CP no fevers Objective Last 24 Hour Vital Signs Date Time Temp Pulse Resp B/P (MAP) Pulse Ox O2 Delivery O2 Flow Rate FiO2 07/03/20 00:00 98.6 99 18 131/62 (85) 99 07/02/20 21:00 Nasal Cannula 2.0 07/02/20 20:44 99.3 07/02/20 20:08 110/68 07/02/20 20:00 100.6 89 16 110/68 (82) 100 07/02/20 16:00 97.6 88 17 118/84 (95) 100 07/02/20 13:00 97.5 82 17 126/67 (86) 100 07/02/20 12:00 98.0 84 19 118/81 (93) 100 07/02/20 11:30 98.8 98 17 124/81 (95) 100 07/02/20 11:00 98.8 84 21 109/89 (96) 100 07/02/20 10:30 98.0 92 18 120/54 (76) 100 07/02/20 10:15 91 115/64 07/02/20 10:15 97.9 91 20 115/64 (81) 100 07/02/20 10:00 97.9 92 18 136/86 (103) 99 07/02/20 09:45 97.6 07/02/20 09:45 97.6 07/02/20 09:45 97.7 91 16 134/86 (102) 99 07/02/20 09:44 78 20 99 07/02/20 09:30 97.8 89 23 156/79 100 Nasal Cannula 3 07/02/20 09:15 85 14 153/78 100 Nasal Cannula 3 07/02/20 09:00 124/81 07/02/20 09:00 80 15 167/83 100 Nasal Cannula 3 07/02/20 09:00 Nasal Cannula 2.0 07/02/20 08:50 75 15 160/85 100 Simple Mask 6 07/02/20 08:40 79 17 159/77 100 Simple Mask 6 07/02/20 08:35 79 20 158/64 100 Simple Mask 6 07/02/20 08:31 97.6 76 22 154/78 100 Simple Mask 6 Intake and Output 07/02/20 07/03/20 19:00 07:00 Intake Total 1700 ml 650 ml Output Total 450 ml 600 ml Balance 1250 ml 50 ml Intake Oral 500 ml 650 ml IV Total 1200 ml Output Urine Total 400 ml 600 ml Estimated Blood Loss 50 ml Objective General Appearance: no apparent distress, sedated Lines, tubes and drains: peripheral HEENT: normocephalic, atraumatic, anicteric, Respiratory/Chest: chest wall non-tender, lungs clear, no respiratory distress, no accessory muscle use Cardiovascular/Chest: normal rate - Abdomen: normal bowel sounds, non tender, soft Extremities: normal range of motion, no calf tenderness, normal capillary refill, R hip dressing C/D/I Skin Exam: normal pigmentation, warm/dry Neurologic: sedated, Musculoskeletal: normal muscle bulk Microbiology Date/Time Source Procedure Growth Status 06/30/20 11:02 Nasopharynx SARS-CoV-2 RdRp Gene Assay - Final Complete Laboratory Tests 07/03/20 05:30: White Blood Count 11.0H, Red Blood Count 3.02L, Hemoglobin 9.0L, Hematocrit 27.0L, Mean Corpuscular Volume 89, Mean Corpuscular Hemoglobin 29.6, Mean Corpuscular Hemoglobin Concent 33.2, Red Cell Distribution Width 13.3, Platelet Count 206, Mean Platelet Volume 7.4, Neutrophils (%) (Auto) 70.2, Lymphocytes (%) (Auto) 11.7L, Monocytes (%) (Auto) 13.9H, Eosinophils (%) (Auto) 2.7, Basophils (%) (Auto) 1.6 Current Medications Medications (Trade) Dose Ordered Sig/Maliha Route PRN Reason Start Time Stop Time Status Last Admin Dose Admin Acetaminophen (Tylenol) 650 mg Q4H PRN ORAL Temp >100.5 07/02/20 06:45 08/01/20 06:44 07/02/20 20:14 Acetaminophen (Tylenol) 650 mg Q4H PRN ORAL Mild Pain (Pain Scale 1-3) 07/02/20 06:45 08/01/20 06:44 Acetaminophen/ Hydrocodone Bitart (Dolliver 5/325) 2 tab Q6H PRN ORAL Severe Pain (Pain Scale 7-10) 07/02/20 06:45 07/09/20 06:44 Acetaminophen/ Hydrocodone Bitart (Dolliver 7.5/325) 1 tab Q4H PRN ORAL Moderate Pain (Pain Scale 4-6) 07/02/20 06:45 07/09/20 06:44 Al Hydroxide/Mg Hydroxide (Mylanta) 30 ml Q6H PRN ORAL HEARTBURN 07/02/20 18:45 08/01/20 18:44 Aspirin (ASA) 325 mg BID ORAL 07/03/20 09:00 08/17/20 08:59 Celecoxib (CeleBREX) 200 mg DAILY ORAL 07/03/20 09:00 10/01/20 08:59 Docusate Sodium (Colace) 100 mg THREE TIMES A DAY ORAL 07/02/20 13:00 08/01/20 12:59 07/02/20 18:21 Famotidine (Pepcid) 20 mg DAILY ORAL 07/03/20 09:00 10/01/20 08:59 Ferrous Sulfate (Feosol) 325 mg THREE TIMES A DAY ORAL 07/02/20 13:00 09/30/20 12:59 07/02/20 18:21 Hydromorphone HCl (Dilaudid) 1 mg Q4H PRN SUBQ Mild Pain (Pain Scale 1-3) 07/02/20 06:45 07/09/20 06:44 Lisinopril (PriniviL) 20 mg Q12HR ORAL 06/30/20 21:00 07/30/20 20:59 07/01/20 21:31 Magnesium Hydroxide (Mom) 30 ml DAILYPRN PRN ORAL Constipation 07/02/20 06:45 08/01/20 06:44 Metoprolol Succinate (Toprol XL) 25 mg DAILY ORAL 07/01/20 09:00 09/29/20 08:59 07/01/20 08:45 Morphine Sulfate (Morphine Sulfate) 2 mg Q4H PRN IVP PAIN 5-7 07/01/20 11:30 07/08/20 11:29 07/02/20 05:44 Morphine Sulfate (Morphine Sulfate) 4 mg Q4H PRN IVP Severe Pain (Pain Scale 7-10) 07/01/20 11:30 07/07/20 11:29 Ondansetron HCl (Zofran) 4 mg Q6H PRN IVP Nausea & Vomiting 07/01/20 11:30 07/31/20 11:29 Oxycodone HCl (OxyCONTIN) 10 mg Q12H ORAL 07/02/20 13:00 07/09/20 12:59 07/03/20 00:20 Polyethylene Glycol (Miralax) 17 gm HSPRN PRN ORAL Constipation 06/30/20 16:15 07/30/20 16:14 Prochlorperazine (Compazine) 10 mg Q6H PRN IVP Nausea & Vomiting 07/02/20 06:45 08/01/20 06:44 Venlafaxine HCl (Effexor) 25 mg THREE TIMES A DAY ORAL 06/30/20 18:00 09/28/20 17:59 07/02/20 18:22 Assessment/Plan Assessment/Plan ASSESSMENT Right intertrochanteric fracture s/p mechanical fall s/p ORIF R hip 07/02 HTN HLD Hx of DE Depression PLAN OF CARE MS floor cardio cleared for surgery ECHO with pEF , mild pulm HTN troponin x 2 NGT BP management with current regimen- stable lipid panel with elevated LDL need statin on dc and education on low fat low cholesterol diet s/p ORIF 07/02 pain management, DVT prophylaxis hip surgery precautions PT eval and Rx fall precautions IS q 1 x 10 while in the bed home meds resumed supportive care case discussed and evaluated by supervising physician Marley Bansal NP Jul 03, 2020 08:05
[2020-07-03] MEDS: celeBREX 200mg Cap **SURGERY PATIENTS ONLY ORAL SCH (08:21)
[2020-07-03] MEDS: Venlafaxine 25mg tab ORAL SCH ×3 (08:21→17:29)
[2020-07-03] MEDS: Metoprolol Succinate XL 25mg tab ORAL SCH (08:22)
[2020-07-03] MEDS: Lisinopril 20mg tab ORAL SCH ×2 (08:22→21:10)
[2020-07-03] MEDS: Docusate 100mg cap ORAL SCH ×3 (08:22→17:30)
[2020-07-03] MEDS: Morphine Sulfate 2mg/ml Inj(IV/IM USE ONLY) IVP PRN (08:23)
--- NOTE | 2020-07-03 08:28 | Orthopedic Progress Note ---
Orthopedic - Progress Note Subjective Symptoms: improved Objective Laboratory Tests Test 07/03/20 05:30 White Blood Count 11.0 K/UL (4.8-10.8) H Red Blood Count 3.02 M/UL (4.20-5.40) L Hemoglobin 9.0 G/DL (12.0-16.0) L Hematocrit 27.0 % (37.0-47.0) L Mean Corpuscular Volume 89 FL (80-99) Mean Corpuscular Hemoglobin 29.6 PG (27.0-31.0) Mean Corpuscular Hemoglobin Concent 33.2 G/DL (32.0-36.0) Red Cell Distribution Width 13.3 % (11.6-14.8) Platelet Count 206 K/UL (150-450) Mean Platelet Volume 7.4 FL (6.5-10.1) Neutrophils (%) (Auto) 70.2 % (45.0-75.0) Lymphocytes (%) (Auto) 11.7 % (20.0-45.0) L Monocytes (%) (Auto) 13.9 % (1.0-10.0) H Eosinophils (%) (Auto) 2.7 % (0.0-3.0) Basophils (%) (Auto) 1.6 % (0.0-2.0) Last 24 Hour Vital Signs Date Time Temp Pulse Resp B/P (MAP) Pulse Ox O2 Delivery O2 Flow Rate FiO2 07/03/20 08:22 99 136/74 07/03/20 08:22 136/74 07/03/20 08:00 98.8 99 20 136/74 (94) 93 07/03/20 00:00 98.6 99 18 131/62 (85) 99 07/02/20 21:00 Nasal Cannula 2.0 07/02/20 20:44 99.3 07/02/20 20:08 110/68 07/02/20 20:00 100.6 89 16 110/68 (82) 100 07/02/20 16:00 97.6 88 17 118/84 (95) 100 07/02/20 13:00 97.5 82 17 126/67 (86) 100 07/02/20 12:00 98.0 84 19 118/81 (93) 100 07/02/20 11:30 98.8 98 17 124/81 (95) 100 07/02/20 11:00 98.8 84 21 109/89 (96) 100 07/02/20 10:30 98.0 92 18 120/54 (76) 100 07/02/20 10:15 91 115/64 07/02/20 10:15 97.9 91 20 115/64 (81) 100 07/02/20 10:00 97.9 92 18 136/86 (103) 99 07/02/20 09:45 97.6 07/02/20 09:45 97.6 07/02/20 09:45 97.7 91 16 134/86 (102) 99 07/02/20 09:44 78 20 99 07/02/20 09:30 97.8 89 23 156/79 100 Nasal Cannula 3 07/02/20 09:15 85 14 153/78 100 Nasal Cannula 3 07/02/20 09:00 124/81 07/02/20 09:00 80 15 167/83 100 Nasal Cannula 3 07/02/20 09:00 Nasal Cannula 2.0 07/02/20 08:50 75 15 160/85 100 Simple Mask 6 07/02/20 08:40 79 17 159/77 100 Simple Mask 6 07/02/20 08:35 79 20 158/64 100 Simple Mask 6 07/02/20 08:31 97.6 76 22 154/78 100 Simple Mask 6 Intake and Output 07/02/20 07/03/20 19:00 07:00 Intake Total 1700 ml 650 ml Output Total 450 ml 600 ml Balance 1250 ml 50 ml Intake Oral 500 ml 650 ml IV Total 1200 ml Output Urine Total 400 ml 600 ml Estimated Blood Loss 50 ml Laboratory Tests Test 07/03/20 05:30 White Blood Count 11.0 K/UL (4.8-10.8) H Red Blood Count 3.02 M/UL (4.20-5.40) L Hemoglobin 9.0 G/DL (12.0-16.0) L Hematocrit 27.0 % (37.0-47.0) L Mean Corpuscular Volume 89 FL (80-99) Mean Corpuscular Hemoglobin 29.6 PG (27.0-31.0) Mean Corpuscular Hemoglobin Concent 33.2 G/DL (32.0-36.0) Red Cell Distribution Width 13.3 % (11.6-14.8) Platelet Count 206 K/UL (150-450) Mean Platelet Volume 7.4 FL (6.5-10.1) Neutrophils (%) (Auto) 70.2 % (45.0-75.0) Lymphocytes (%) (Auto) 11.7 % (20.0-45.0) L Monocytes (%) (Auto) 13.9 % (1.0-10.0) H Eosinophils (%) (Auto) 2.7 % (0.0-3.0) Basophils (%) (Auto) 1.6 % (0.0-2.0) Assessment Post-op Diagnosis POD 1 Procedure Performed Right hip ORIF Plan Plan: PT, discharge plan, other - Monitor H&H Kenya Luna Jul 03, 2020 08:28
--- NOTE | 2020-07-03 11:39 | Surgery Progress Note ---
Surgery Progress Note Subjective Additional Comments s/p Right hip open reduction and internal fixation using a short 120-degree by 10 mm diameter gamma nail with distal screw fixation. doing well pos top comfortable pain control Objective Last 24 Hour Vital Signs Date Time Temp Pulse Resp B/P (MAP) Pulse Ox O2 Delivery O2 Flow Rate FiO2 07/03/20 09:00 Room Air 07/03/20 08:53 98.8 07/03/20 08:22 99 136/74 07/03/20 08:22 136/74 07/03/20 08:00 98.8 99 20 136/74 (94) 93 07/03/20 00:00 98.6 99 18 131/62 (85) 99 07/02/20 21:00 Nasal Cannula 2.0 07/02/20 20:44 99.3 07/02/20 20:08 110/68 07/02/20 20:00 100.6 89 16 110/68 (82) 100 07/02/20 16:00 97.6 88 17 118/84 (95) 100 07/02/20 13:00 97.5 82 17 126/67 (86) 100 07/02/20 12:00 98.0 84 19 118/81 (93) 100 I&O Intake and Output 07/02/20 07/03/20 19:00 07:00 Intake Total 1700 ml 650 ml Output Total 450 ml 600 ml Balance 1250 ml 50 ml Intake Oral 500 ml 650 ml IV Total 1200 ml Output Urine Total 400 ml 600 ml Estimated Blood Loss 50 ml Dressing: other Wound: other Cardiovascular: RSR Respiratory: clear Abdomen: soft, non-tender, present bowel sounds Extremities: edema, no tenderness, no cyanosis Laboratory Tests Test 07/03/20 05:30 White Blood Count 11.0 K/UL (4.8-10.8) H Red Blood Count 3.02 M/UL (4.20-5.40) L Hemoglobin 9.0 G/DL (12.0-16.0) L Hematocrit 27.0 % (37.0-47.0) L Mean Corpuscular Volume 89 FL (80-99) Mean Corpuscular Hemoglobin 29.6 PG (27.0-31.0) Mean Corpuscular Hemoglobin Concent 33.2 G/DL (32.0-36.0) Red Cell Distribution Width 13.3 % (11.6-14.8) Platelet Count 206 K/UL (150-450) Mean Platelet Volume 7.4 FL (6.5-10.1) Neutrophils (%) (Auto) 70.2 % (45.0-75.0) Lymphocytes (%) (Auto) 11.7 % (20.0-45.0) L Monocytes (%) (Auto) 13.9 % (1.0-10.0) H Eosinophils (%) (Auto) 2.7 % (0.0-3.0) Basophils (%) (Auto) 1.6 % (0.0-2.0) Plan Problems: (1) Hip pain (2) Fracture of femoral neck, right (3) Fall Assessment & Plan: fall while standing ground level no loc full exam done. no other subsequent injury noted ct reviewed fairly isolated ortho. ortho input appreciated pain control pt/ot thank you There is marked age-related enlargement of the ventricles and extra axial CSF spaces. There is considerable periventricular deep white matter low- attenuation, consistent with chronic microvascular ischemic changes. No acute intracranial hemorrhage or edema. No mass effect nor midline shift. Otherwise normal riddle- white differentiation. The calvarium is intact. The mastoids are clear. There is maxillary, ethmoid, and sphenoid sinus disease. No acute fracture. No dislocation. No prevertebral soft tissue swelling. There is slight anterior offset of C2 on C3, C3 on C4, and C4 on C5. There is thickening and calcification of the posterior transverse ligament of the odontoid. There is degenerative narrowing the anterior atlantoaxial joint. At C2-3, there is bilateral facet arthrosis. No significant disc bulge or protrusion or spinal stenosis. At C3-4, there is severe left neural foraminal stenosis. No significant disc bulge or protrusion, spinal stenosis, or neural foraminal stenosis. There is facet arthrosis on the left. At C4-5, no significant disc bulge or protrusion, spinal stenosis, or neural foraminal stenosis. At C5-6, there is mild degenerative disc narrowing. There is mild bilateral neural foraminal narrowing. At C6-7 and C7-T1, no significant disc bulge or protrusion, spinal stenosis, or neural foraminal stenosis. There is bilateral facet arthrosis. There is some mucosal irregularity with surface bubbles involving the posterior nasopharynx. There is extensive sinus disease. Impression: No acute bony trauma Degenerative changes as detailed on a level by level basis above Some apparent surface irregularity of the posterior nasopharynx. Probably due to secretions, but mucosal lesion also possible. Consider direct inspection (4) Hip fracture, right (5) Intertrochanteric fracture of right femur Assessment & Plan: There is a comminuted intertrochanteric fracture of the right hip. No associated pelvic fracture. The bones are osteoporotic. The joint spaces are preserved. Impression: Positive for right hip intertrochanteric fracture as per ortho thank you s/p Right hip open reduction and internal fixation using a short 120-degree by 10 mm diameter gamma nail with distal screw fixation. Roldan Rose Jul 03, 2020 11:39
[2020-07-03 12:00] VITALS: BP 133/61
[2020-07-03 15:59] VITALS: BP 132/60
--- NOTE | 2020-07-03 19:13 | Cardiac Electrophysiology PN ---
Assessment/Plan Assessment/Plan 1. Hypertension. On lisinopril 20 mg b.i.d. and Toprol-XL 25 mg daily and p.r.n. clonidine 2. Coronary artery disease with history of stent in the past. Remains without any chest pain. EKG is nonischemic and EF 60% The patient stable and tolerated right hip surgery 3. Hypertension. Continue lisinopril and metoprolol. 4. Right hip Fx. S/P ORIF Subjective Subjective S/P Right hip ORIF today. No events Objective Last 24 Hour Vital Signs Date Time Temp Pulse Resp B/P (MAP) Pulse Ox O2 Delivery O2 Flow Rate FiO2 07/03/20 15:59 97.3 90 20 132/60 (84) 93 07/03/20 13:47 98.9 07/03/20 12:00 98.9 86 20 133/61 (85) 95 07/03/20 09:00 Room Air 07/03/20 08:53 98.8 07/03/20 08:22 99 136/74 07/03/20 08:22 136/74 07/03/20 08:00 98.8 99 20 136/74 (94) 93 07/03/20 00:00 98.6 99 18 131/62 (85) 99 07/02/20 21:00 Nasal Cannula 2.0 07/02/20 20:44 99.3 07/02/20 20:08 110/68 07/02/20 20:00 100.6 89 16 110/68 (82) 100 Intake and Output 07/02/20 07/03/20 19:00 07:00 Intake Total 1700 ml 650 ml Output Total 450 ml 600 ml Balance 1250 ml 50 ml Intake Oral 500 ml 650 ml IV Total 1200 ml Output Urine Total 400 ml 600 ml Estimated Blood Loss 50 ml Laboratory Tests Test 07/03/20 05:30 White Blood Count 11.0 K/UL (4.8-10.8) H Red Blood Count 3.02 M/UL (4.20-5.40) L Hemoglobin 9.0 G/DL (12.0-16.0) L Hematocrit 27.0 % (37.0-47.0) L Mean Corpuscular Volume 89 FL (80-99) Mean Corpuscular Hemoglobin 29.6 PG (27.0-31.0) Mean Corpuscular Hemoglobin Concent 33.2 G/DL (32.0-36.0) Red Cell Distribution Width 13.3 % (11.6-14.8) Platelet Count 206 K/UL (150-450) Mean Platelet Volume 7.4 FL (6.5-10.1) Neutrophils (%) (Auto) 70.2 % (45.0-75.0) Lymphocytes (%) (Auto) 11.7 % (20.0-45.0) L Monocytes (%) (Auto) 13.9 % (1.0-10.0) H Eosinophils (%) (Auto) 2.7 % (0.0-3.0) Basophils (%) (Auto) 1.6 % (0.0-2.0) Objective HEAD AND NECK: No JVD or carotid bruit. LUNGS: Clear. CARDIOVASCULAR: Regular S1 and S2 with no gallop or murmur. ABDOMEN: Soft. EXTREMITIES: No pitting edema. Her hip is rotated and shortened Tim Chávez MD Jul 03, 2020 19:13
--- NOTE | 2020-07-03 19:29 | NUR ---
NURSE HAND-OFF: Important Events on Shift:[Pain management.] Patient Status: [stable] Diet: [reg] Pending Orders: [] Pending Results/Labs:[] Pending MD notification:[] Latest Vital Signs: Temperature 97.3 , Pulse 90 , B/P 132 /60 , Respiratory Rate 20 , O2 SAT 93 , Nasal Cannula, O2 Flow Rate 2.0 . Vital Sign Comment: [stable] Latest Austin Fall Score: 60 Fall Risk: High Risk Safety Measures: Call light Within Reach, Bed Alarm Zone 1, Side Rails Side Rails x2, Bed position Low and Locked. Fall Precautions: Yellow Socks Patient Fall Education Report given to [Mami,RN].
--- NOTE | 2020-07-03 19:30 | NUR ---
NURSE NOTES: Receive a report from JUAN ALBERTO Rutledge (Hyunjung). Round is made. Pt is asleep but easily aroused. Surgical site dressing kept dry and intact. Pain is tolerating. Will provide pain medication as ordered. Encourage deep breathing. Call light within reach. Will continue to monitor.
[2020-07-03 20:00] VITALS: BP 122/63
--- NOTE | 2020-07-03 20:30 | NUR ---
NURSE NOTES: Spo2 in RA noted 90%. No respiratory distress noted. Lung sound diminished on LLQ. Apply O2 2L NC and encourage I/S 10times while awake. Denies pain at this time. Will provide any pain medication as needed. Will continue to follow up.
[2020-07-04] VITALS: BP 128/61
[2020-07-04] MEDS: oxyCONTIN 10mg tab ORAL SCH ×2 (00:01→14:10)
[2020-07-04 04:30] VITALS: BP 122/67
--- NOTE | 2020-07-04 05:30 | NUR ---
NURSE NOTES: Clean up the sheet and gown after sponge bath. Dressing change on surgical site with gauze and tegardem. Site is clean. Given prn pain medication. Will continue to monitor.
[2020-07-04] MEDS: Morphine Sulfate 2mg/ml Inj(IV/IM USE ONLY) IVP PRN (05:54)
--- NOTE | 2020-07-04 07:17 | NUR ---
NURSE HAND-OFF: Important Events on Shift: dressing change/ prn Pain medication x1. Patient Status: [stable] Diet: [regular] Pending Orders: [] Pending Results/Labs:[] Pending MD notification:[] Latest Vital Signs: Temperature 98.6 , Pulse 92 , B/P 122 /67 , Respiratory Rate 18 , O2 SAT 99 , Nasal Cannula, O2 Flow Rate 2.0 . Vital Sign Comment: [] Latest Austin Fall Score: 70 Fall Risk: High Risk Safety Measures: Call light Within Reach, Bed Alarm Zone 1, Side Rails Side Rails x2, Bed position Low and Locked. Fall Precautions: Yellow Socks Door Sign Patient Fall Education Report given to JUAN ALBERTO Cummings (Olivia).
--- NOTE | 2020-07-04 07:20 | NUR ---
NURSE HAND-OFF: Important Events on Shift: Self-void x4, Denies pain. Pt kept forgetting to use urinal to show urine color. Re-educate pt. Patient Status: [stable] Diet: [regular] Pending Orders: [] Pending Results/Labs:[] Pending MD notification:[] Latest Vital Signs: Temperature 98.6 , Pulse 92 , B/P 122 /67 , Respiratory Rate 18 , O2 SAT 99 , Nasal Cannula, O2 Flow Rate 2.0 . Vital Sign Comment: [] Latest Austin Fall Score: 70 Fall Risk: High Risk Safety Measures: Call light Within Reach, Bed Alarm Zone 1, Side Rails Side Rails x2, Bed position Low and Locked. Fall Precautions: Yellow Socks Door Sign Patient Fall Education Report given to JUAN ALBERTO Cummings (Oliva). Addendum: 07/04/20 at 0731 by Mami Toure RN INCORRECT CHARTING
--- NOTE | 2020-07-04 07:35 | NUR ---
NURSE NOTES: Received report from JUAN ALBERTO Bolaños. Pt awake in bed, alert and oriented x4, denies pain at this time. No SOB or respiratory distress, on room air. IS at bedside, instructed pt to use IS. Dressing on right hip clean and intact. Bed in lowest position and locked. Call light within reach. Will continue plan of care.
[2020-07-04 08:00] VITALS: BP 114/63
[2020-07-04] MEDS: celeBREX 200mg Cap **SURGERY PATIENTS ONLY ORAL SCH (08:22)
[2020-07-04] MEDS: Venlafaxine 25mg tab ORAL SCH ×3 (08:22→17:08)
[2020-07-04] MEDS: Docusate 100mg cap ORAL SCH ×3 (08:22→17:08)
[2020-07-04] MEDS: Lisinopril 20mg tab ORAL SCH ×2 (08:23→21:54)
[2020-07-04] MEDS: Metoprolol Succinate XL 25mg tab ORAL SCH (08:23)
--- NOTE | 2020-07-04 08:46 | Orthopedic Progress Note ---
Orthopedic - Progress Note Subjective Symptoms: improved, other - labs pending. dressing changed Objective Last 24 Hour Vital Signs Date Time Temp Pulse Resp B/P (MAP) Pulse Ox O2 Delivery O2 Flow Rate FiO2 07/04/20 08:23 105 114/63 07/04/20 08:23 114/63 07/04/20 08:00 98.2 105 18 114/63 (80) 94 07/04/20 04:30 98.6 92 18 122/67 (85) 99 07/04/20 00:00 98.0 94 18 128/61 (83) 96 07/03/20 21:10 122/63 07/03/20 21:00 Nasal Cannula 2.0 07/03/20 20:00 97.3 99 18 122/63 (82) 90 07/03/20 15:59 97.3 90 20 132/60 (84) 93 07/03/20 13:47 98.9 07/03/20 12:00 98.9 86 20 133/61 (85) 95 07/03/20 09:00 Room Air 07/03/20 08:53 98.8 Intake and Output 07/03/20 07/04/20 19:00 07:00 Intake Total 400 ml 400 ml Output Total 375 ml 900 ml Balance 25 ml -500 ml Intake Oral 400 ml 400 ml Output Urine Total 375 ml 900 ml Assessment Post-op Diagnosis POD 2 Procedure Performed Right hip ORIF Plan Plan: discharge plan - home with home care vs rehab, other - awaiting labs Kenya Luna Jul 04, 2020 08:46
--- NOTE | 2020-07-04 09:07 | Pulmonology Progress Note ---
Subjective Allergies: Coded Allergies: No Known Allergies (Verified , 07/17/10) Subjective s/p ORIF 07/02 pain controlled with current regimen still did not work with PT no SOB, no CP no fevers comfortable Objective Last 24 Hour Vital Signs Date Time Temp Pulse Resp B/P (MAP) Pulse Ox O2 Delivery O2 Flow Rate FiO2 07/04/20 08:23 105 114/63 07/04/20 08:23 114/63 07/04/20 08:00 98.2 105 18 114/63 (80) 94 07/04/20 04:30 98.6 92 18 122/67 (85) 99 07/04/20 00:00 98.0 94 18 128/61 (83) 96 07/03/20 21:10 122/63 07/03/20 21:00 Nasal Cannula 2.0 07/03/20 20:00 97.3 99 18 122/63 (82) 90 07/03/20 15:59 97.3 90 20 132/60 (84) 93 07/03/20 13:47 98.9 07/03/20 12:00 98.9 86 20 133/61 (85) 95 Intake and Output0 07/03/20 07/04/20 19:00 07:00 Intake Total 400 ml 400 ml Output Total 375 ml 900 ml Balance 25 ml -500 ml Intake Oral 400 ml 400 ml Output Urine Total 375 ml 900 ml Objective General Appearance: no apparent distress, sedated Lines, tubes and drains: peripheral HEENT: normocephalic, atraumatic, anicteric, Respiratory/Chest: chest wall non-tender, lungs clear, no respiratory distress, no accessory muscle use Cardiovascular/Chest: normal rate - Abdomen: normal bowel sounds, non tender, soft Extremities: normal range of motion, no calf tenderness, normal capillary refill, R hip dressing C/D/I Skin Exam: normal pigmentation, warm/dry Neurologic: sedated, Musculoskeletal: normal muscle bulk Current Medications Medications (Trade) Dose Ordered Sig/Maliha Route PRN Reason Start Time Stop Time Status Last Admin Dose Admin Acetaminophen (Tylenol) 650 mg Q4H PRN ORAL Mild Pain (Pain Scale 1-3) 07/02/20 06:45 08/01/20 06:44 07/04/20 01:55 Acetaminophen (Tylenol) 650 mg Q4H PRN ORAL Temp >100.5 07/02/20 06:45 08/01/20 06:44 07/02/20 20:14 Acetaminophen/ Hydrocodone Bitart (Lovilia 5/325) 2 tab Q6H PRN ORAL Severe Pain (Pain Scale 7-10) 07/02/20 06:45 07/09/20 06:44 Acetaminophen/ Hydrocodone Bitart (Lovilia 7.5/325) 1 tab Q4H PRN ORAL Moderate Pain (Pain Scale 4-6) 07/02/20 06:45 07/09/20 06:44 Al Hydroxide/Mg Hydroxide (Mylanta) 30 ml Q6H PRN ORAL HEARTBURN 07/02/20 18:45 08/01/20 18:44 Aspirin (ASA) 325 mg BID ORAL 07/03/20 09:00 08/17/20 08:59 07/04/20 08:22 Celecoxib (CeleBREX) 200 mg DAILY ORAL 07/03/20 09:00 10/01/20 08:59 07/04/20 08:22 Docusate Sodium (Colace) 100 mg THREE TIMES A DAY ORAL 07/02/20 13:00 08/01/20 12:59 07/04/20 08:22 Famotidine (Pepcid) 20 mg DAILY ORAL 07/03/20 09:00 10/01/20 08:59 07/04/20 08:22 Ferrous Sulfate (Feosol) 325 mg THREE TIMES A DAY ORAL 07/02/20 13:00 09/30/20 12:59 07/04/20 08:22 Hydromorphone HCl (Dilaudid) 1 mg Q4H PRN SUBQ Mild Pain (Pain Scale 1-3) 07/02/20 06:45 07/09/20 06:44 Lisinopril (PriniviL) 20 mg Q12HR ORAL 06/30/20 21:00 07/30/20 20:59 07/03/20 21:10 Magnesium Hydroxide (Mom) 30 ml DAILYPRN PRN ORAL Constipation 07/02/20 06:45 08/01/20 06:44 Metoprolol Succinate (Toprol XL) 25 mg DAILY ORAL 07/01/20 09:00 09/29/20 08:59 07/03/20 08:22 Morphine Sulfate (Morphine Sulfate) 2 mg Q4H PRN IVP PAIN 5-7 07/01/20 11:30 07/08/20 11:29 07/04/20 05:54 Morphine Sulfate (Morphine Sulfate) 4 mg Q4H PRN IVP Severe Pain (Pain Scale 7-10) 07/01/20 11:30 07/07/20 11:29 Ondansetron HCl (Zofran) 4 mg Q6H PRN IVP Nausea & Vomiting 07/01/20 11:30 07/31/20 11:29 Oxycodone HCl (OxyCONTIN) 10 mg Q12H ORAL 07/02/20 13:00 07/09/20 12:59 07/04/20 00:01 Polyethylene Glycol (Miralax) 17 gm HSPRN PRN ORAL Constipation 06/30/20 16:15 07/30/20 16:14 Prochlorperazine (Compazine) 10 mg Q6H PRN IVP Nausea & Vomiting 07/02/20 06:45 08/01/20 06:44 Venlafaxine HCl (Effexor) 25 mg THREE TIMES A DAY ORAL 06/30/20 18:00 09/28/20 17:59 07/04/20 08:22 Assessment/Plan Assessment/Plan ASSESSMENT Right intertrochanteric fracture s/p mechanical fall s/p ORIF R hip 07/02 HTN HLD Hx of AK Depression PLAN OF CARE MS floor cardio cleared for surgery ECHO with pEF , mild pulm HTN troponin x 2 NGT BP management with current regimen- stable lipid panel with elevated LDL need statin on dc and education on low fat low cholesterol diet s/p ORIF 07/02 pain management, DVT prophylaxis start when cleared by surgery hip surgery precautions PT eval and Rx fall precautions IS q 1 x 10 while in the bed home meds resumed supportive care dc plan after PT eval and recom: SNF for PT vs home with HH PT case discussed and evaluated by supervising physician Marley Bansal NP Jul 04, 2020 09:07
[2020-07-04 09:54] LABS: BASOPHILS % (AUTO) 1.8 % (0.0-2.0); EOSINOPHILS % (AUTO) 2.7 % (0.0-3.0); HEMATOCRIT 28.3 % (37.0-47.0); HEMOGLOBIN 9.2 G/DL (12.0-16.0); LYMPHOCYTES % (AUTO) 10.3 % (20.0-45.0); MEAN CORPUSCULAR VOLUME 89 FL (80-99); MONOCYTES % (AUTO) 11.6 % (1.0-10.0); NEUTROPHILS % (AUTO) 73.6 % (45.0-75.0); PLATELET COUNT 232 K/UL (150-450); RED BLOOD COUNT 3.18 M/UL (4.20-5.40); RED CELL DISTRIBUTION WIDTH 13.2 % (11.6-14.8); WHITE BLOOD COUNT 10.2 K/UL (4.8-10.8)
--- NOTE | 2020-07-04 10:30 | NUR ---
PT EVALUATION NOTE Patient seen for initial evaluation and treatment initiated. Patient presents with R hip pain and impaired functional mobility s/p R hip ORIF. Patient requires mod assist for bed mobility and transfers with FWW. Attempted to take steps however patient unable at this time. Patient will benefit from skilled inpatient PT intervention to increase strength and postural stability for improved level of functional mobility, safety and activity tolerance. Recommend discharge to ARU/SNF for continued rehab once medically cleared by the MD. Patient lives in a 2 story condo with her daughter, the bathrooms and bedrooms are upstairs. Recommend FWW for ambulation. Addendum: 07/04/20 at 1103 by CANDELARIA CADET PT Amended: Links added.
[2020-07-04 12:00] VITALS: BP 124/69
--- NOTE | 2020-07-04 13:56 | Surgery Progress Note ---
Surgery Progress Note Subjective Additional Comments doing well comfortable resting labs okay improved dressings changed by ortho d/c planning Objective Last 24 Hour Vital Signs Date Time Temp Pulse Resp B/P (MAP) Pulse Ox O2 Delivery O2 Flow Rate FiO2 07/04/20 12:00 98.7 101 18 124/69 (87) 95 07/04/20 09:00 Room Air 07/04/20 08:23 105 114/63 07/04/20 08:23 114/63 07/04/20 08:00 98.2 105 18 114/63 (80) 94 07/04/20 04:30 98.6 92 18 122/67 (85) 99 07/04/20 00:00 98.0 94 18 128/61 (83) 96 07/03/20 21:10 122/63 07/03/20 21:00 Nasal Cannula 2.0 07/03/20 20:00 97.3 99 18 122/63 (82) 90 07/03/20 15:59 97.3 90 20 132/60 (84) 93 I&O Intake and Output 07/03/20 07/04/20 19:00 07:00 Intake Total 400 ml 400 ml Output Total 375 ml 900 ml Balance 25 ml -500 ml Intake Oral 400 ml 400 ml Output Urine Total 375 ml 900 ml Dressing: dry Wound: clean, dry Cardiovascular: RSR Respiratory: clear Abdomen: soft, flat, non-tender, present bowel sounds Extremities: no edema, no tenderness, no cyanosis Laboratory Tests Test 07/04/20 09:35 White Blood Count 10.2 K/UL (4.8-10.8) Red Blood Count 3.18 M/UL (4.20-5.40) L Hemoglobin 9.2 G/DL (12.0-16.0) L Hematocrit 28.3 % (37.0-47.0) L Mean Corpuscular Volume 89 FL (80-99) Mean Corpuscular Hemoglobin 28.9 PG (27.0-31.0) Mean Corpuscular Hemoglobin Concent 32.5 G/DL (32.0-36.0) Red Cell Distribution Width 13.2 % (11.6-14.8) Platelet Count 232 K/UL (150-450) Mean Platelet Volume 7.5 FL (6.5-10.1) Neutrophils (%) (Auto) 73.6 % (45.0-75.0) Lymphocytes (%) (Auto) 10.3 % (20.0-45.0) L Monocytes (%) (Auto) 11.6 % (1.0-10.0) H Eosinophils (%) (Auto) 2.7 % (0.0-3.0) Basophils (%) (Auto) 1.8 % (0.0-2.0) Plan Problems: (1) Hip pain (2) Fracture of femoral neck, right (3) Fall Assessment & Plan: fall while standing ground level no loc full exam done. no other subsequent injury noted ct reviewed fairly isolated ortho. ortho input appreciated pain control pt/ot thank you There is marked age-related enlargement of the ventricles and extra axial CSF spaces. There is considerable periventricular deep white matter low-attenuation, consistent with chronic microvascular ischemic changes. No acute intracranial hemorrhage or edema. No mass effect nor midline shift. Otherwise normal riddle- white differentiation. The calvarium is intact. The mastoids are clear. There is maxillary, ethmoid, and sphenoid sinus disease. No acute fracture. No dislocation. No prevertebral soft tissue swelling. There is slight anterior offset of C2 on C3, C3 on C4, and C4 on C5. There is thickening and calcification of the posterior transverse ligament of the odontoid. There is degenerative narrowing the anterior atlantoaxial joint. At C2-3, there is bilateral facet arthrosis. No significant disc bulge or protrusion or spinal stenosis. At C3-4, there is severe left neural foraminal stenosis. No significant disc bulge or protrusion, spinal stenosis, or neural foraminal stenosis. There is facet arthrosis on the left. At C4-5, no significant disc bulge or protrusion, spinal stenosis, or neural foraminal stenosis. At C5-6, there is mild degenerative disc narrowing. There is mild bilateral neural foraminal narrowing. At C6-7 and C7-T1, no significant disc bulge or protrusion, spinal stenosis, or neural foraminal stenosis. There is bilateral facet arthrosis. There is some mucosal irregularity with surface bubbles involving the posterior nasopharynx. There is extensive sinus disease. Impression: No acute bony trauma Degenerative changes as detailed on a level by level basis above Some apparent surface irregularity of the posterior nasopharynx. Probably due to secretions, but mucosal lesion also possible. Consider direct inspection (4) Hip fracture, right (5) Intertrochanteric fracture of right femur Assessment & Plan: There is a comminuted intertrochanteric fracture of the right hip. No associated pelvic fracture. The bones are osteoporotic. The joint spaces are preserved. Impression: Positive for right hip intertrochanteric fracture as per ortho thank you s/p Right hip open reduction and internal fixation using a short 120-degree by 10 mm diameter gamma nail with distal screw fixation. Roldan Rose Jul 04, 2020 13:56
[2020-07-04 16:00] VITALS: BP 149/73
--- NOTE | 2020-07-04 19:05 | NUR ---
NURSE NOTES: Received report from JUAN ALBERTO Rutledge. Pt is A&Ox4 in bed, call light within reach, bed locked and in lowest position, side rails up x3. Pt is free of pain, will continue to monitor.
--- NOTE | 2020-07-04 19:09 | NUR ---
NURSE HAND-OFF: Important Events on Shift:[Physical therapy done] Patient Status: [stable] Diet: [reg] Pending Orders: [] Pending Results/Labs:[] Pending MD notification:[] Latest Vital Signs: Temperature 98.7 , Pulse 98 , B/P 149 /73 , Respiratory Rate 18 , O2 SAT 93 , Nasal Cannula, O2 Flow Rate 2.0 . Vital Sign Comment: [stable] Latest Austin Fall Score: 70 Fall Risk: High Risk Safety Measures: Call light Within Reach, Bed Alarm Zone 1, Side Rails Side Rails x2, Bed position Low and Locked. Fall Precautions: Yellow Socks Door Sign Patient Fall Education Report given to [JUAN ALBERTO Harry].
[2020-07-04 20:00] VITALS: BP 145/92
--- NOTE | 2020-07-04 21:30 | NUR ---
NURSE NOTES: Patient's IV came out. Pt does not want a new IV at this time. I explained to the patient the need for an IV in the future and she understands. Pt is drinking and eating well.
[2020-07-05] VITALS: BP 134/75
[2020-07-05] MEDS: oxyCONTIN 10mg tab ORAL SCH ×2 (01:00→13:40)
[2020-07-05 04:00] VITALS: BP 138/76
--- NOTE | 2020-07-05 07:15 | NUR ---
NURSE HAND-OFF: Important Events on Shift: Pt had proper pain management and was able to sleep Patient Status: Awake and eating breakfast Diet: Regular Pending Orders: Pending Results/Labs: Pending MD notification: Latest Vital Signs: Temperature 98.4 , Pulse 96 , B/P 138 /76 , Respiratory Rate 18 , O2 SAT 95 , Nasal Cannula, O2 Flow Rate 2.0 . Vital Sign Comment: VSS Latest Austin Fall Score: 70 Fall Risk: High Risk Safety Measures: Call light Within Reach, Bed Alarm Zone 1, Side Rails Side Rails x2, Bed position Low and Locked. Fall Precautions: Yellow Socks Door Sign Patient Fall Education Report given to JUAN ALBERTO Easley.
[2020-07-05 07:20] LABS: BASOPHILS % (AUTO) 1.4 % (0.0-2.0); EOSINOPHILS % (AUTO) 4.7 % (0.0-3.0); HEMATOCRIT 27.3 % (37.0-47.0); LYMPHOCYTES % (AUTO) 13.1 % (20.0-45.0); MEAN CORPUSCULAR VOLUME 90 FL (80-99); MONOCYTES % (AUTO) 11.8 % (1.0-10.0); NEUTROPHILS % (AUTO) 69.1 % (45.0-75.0); PLATELET COUNT 249 K/UL (150-450); RED BLOOD COUNT 3.03 M/UL (4.20-5.40); RED CELL DISTRIBUTION WIDTH 12.4 % (11.6-14.8); WHITE BLOOD COUNT 9.4 K/UL (4.8-10.8)
--- NOTE | 2020-07-05 07:20 | NUR ---
NURSE NOTES: Received report from JUAN ALBERTO Harry. Rounding done. Pt a/o x 4, having breakfast. No SOB noted. Denies any pain at this time. Rt. hip surgical site dressing is dry/intact. Discussed POC. Bed in lowest position, call light within reach. Will continue to monitor.
[2020-07-05 08:00] VITALS: BP 149/76
--- NOTE | 2020-07-05 08:10 | Orthopedic Progress Note ---
Orthopedic - Progress Note Subjective Symptoms: improved, other - slow with PT. rec for rehab Objective Laboratory Tests Test 07/04/20 09:35 07/05/20 05:05 White Blood Count 10.2 K/UL (4.8-10.8) 9.4 K/UL (4.8-10.8) Red Blood Count 3.18 M/UL (4.20-5.40) L 3.03 M/UL (4.20-5.40) L Hemoglobin 9.2 G/DL (12.0-16.0) L 9.0 G/DL (12.0-16.0) L Hematocrit 28.3 % (37.0-47.0) L 27.3 % (37.0-47.0) L Mean Corpuscular Volume 89 FL (80-99) 90 FL (80-99) Mean Corpuscular Hemoglobin 28.9 PG (27.0-31.0) 29.7 PG (27.0-31.0) Mean Corpuscular Hemoglobin Concent 32.5 G/DL (32.0-36.0) 33.0 G/DL (32.0-36.0) Red Cell Distribution Width 13.2 % (11.6-14.8) 12.4 % (11.6-14.8) Platelet Count 232 K/UL (150-450) 249 K/UL (150-450) Mean Platelet Volume 7.5 FL (6.5-10.1) 7.4 FL (6.5-10.1) Neutrophils (%) (Auto) 73.6 % (45.0-75.0) 69.1 % (45.0-75.0) Lymphocytes (%) (Auto) 10.3 % (20.0-45.0) L 13.1 % (20.0-45.0) L Monocytes (%) (Auto) 11.6 % (1.0-10.0) H 11.8 % (1.0-10.0) H Eosinophils (%) (Auto) 2.7 % (0.0-3.0) 4.7 % (0.0-3.0) H Basophils (%) (Auto) 1.8 % (0.0-2.0) 1.4 % (0.0-2.0) Last 24 Hour Vital Signs Date Time Temp Pulse Resp B/P (MAP) Pulse Ox O2 Delivery O2 Flow Rate FiO2 07/05/20 04:00 98.4 96 18 138/76 (96) 95 07/05/20 00:00 98.2 98 18 134/75 (94) 94 07/04/20 21:54 145/92 07/04/20 21:00 Room Air 07/04/20 20:00 98.3 109 18 145/92 (109) 94 07/04/20 16:00 98.7 98 18 149/73 (98) 93 07/04/20 14:40 98.7 07/04/20 12:00 98.7 101 18 124/69 (87) 95 07/04/20 09:00 Room Air 07/04/20 08:23 105 114/63 07/04/20 08:23 114/63 Intake and Output 07/04/20 07/05/20 19:00 07:00 Intake Total 800 ml 550 ml Output Total 700 ml 450 ml Balance 100 ml 100 ml Intake Oral 800 ml 550 ml Output Urine Total 700 ml 450 ml Laboratory Tests Test 07/04/20 09:35 07/05/20 05:05 White Blood Count 10.2 K/UL (4.8-10.8) 9.4 K/UL (4.8-10.8) Red Blood Count 3.18 M/UL (4.20-5.40) L 3.03 M/UL (4.20-5.40) L Hemoglobin 9.2 G/DL (12.0-16.0) L 9.0 G/DL (12.0-16.0) L Hematocrit 28.3 % (37.0-47.0) L 27.3 % (37.0-47.0) L Mean Corpuscular Volume 89 FL (80-99) 90 FL (80-99) Mean Corpuscular Hemoglobin 28.9 PG (27.0-31.0) 29.7 PG (27.0-31.0) Mean Corpuscular Hemoglobin Concent 32.5 G/DL (32.0-36.0) 33.0 G/DL (32.0-36.0) Red Cell Distribution Width 13.2 % (11.6-14.8) 12.4 % (11.6-14.8) Platelet Count 232 K/UL (150-450) 249 K/UL (150-450) Mean Platelet Volume 7.5 FL (6.5-10.1) 7.4 FL (6.5-10.1) Neutrophils (%) (Auto) 73.6 % (45.0-75.0) 69.1 % (45.0-75.0) Lymphocytes (%) (Auto) 10.3 % (20.0-45.0) L 13.1 % (20.0-45.0) L Monocytes (%) (Auto) 11.6 % (1.0-10.0) H 11.8 % (1.0-10.0) H Eosinophils (%) (Auto) 2.7 % (0.0-3.0) 4.7 % (0.0-3.0) H Basophils (%) (Auto) 1.8 % (0.0-2.0) 1.4 % (0.0-2.0) Wound: clean, dry, intact Drains: none Neuro Status: normal Vascular Status: normal Additional Comments xray reviewed Assessment Post-op Diagnosis POD 3 Procedure Performed Right hip ORIF Plan Plan: PT, discharge plan - to rehab. stable for d/c per Kenya Hernandez Jul 05, 2020 08:10
[2020-07-05] MEDS: celeBREX 200mg Cap **SURGERY PATIENTS ONLY ORAL SCH (08:40)
[2020-07-05] MEDS: Lisinopril 20mg tab ORAL SCH ×2 (08:41→20:47)
[2020-07-05] MEDS: Docusate 100mg cap ORAL SCH ×3 (08:41→17:29)
[2020-07-05] MEDS: Venlafaxine 25mg tab ORAL SCH ×3 (08:41→17:29)
[2020-07-05] MEDS: Metoprolol Succinate XL 25mg tab ORAL SCH (08:41)
--- NOTE | 2020-07-05 10:37 | Cardiac Electrophysiology PN ---
Assessment/Plan Assessment/Plan 1. Hypertension. On lisinopril 20 mg bid, Toprol-XL 25 mg daily and p.r.n. clonidine 2. Coronary artery disease with history of stent in the past. Remains without any chest pain. EKG is nonischemic and EF 60% The patient stable and tolerated right hip surgery 3. Hypertension. Continue lisinopril and metoprolol. 4. Right hip Fx. S/P ORIF Subjective Subjective S/P Right hip ORIF. Working with the therapist. No events Objective Last 24 Hour Vital Signs Date Time Temp Pulse Resp B/P (MAP) Pulse Ox O2 Delivery O2 Flow Rate FiO2 07/05/20 09:00 Room Air 07/05/20 08:41 104 149/76 07/05/20 08:41 149/76 07/05/20 08:00 99.3 104 18 149/76 (100) 95 07/05/20 04:00 98.4 96 18 138/76 (96) 95 07/05/20 00:00 98.2 98 18 134/75 (94) 94 07/04/20 21:54 145/92 07/04/20 21:00 Room Air 07/04/20 20:00 98.3 109 18 145/92 (109) 94 07/04/20 16:00 98.7 98 18 149/73 (98) 93 07/04/20 14:40 98.7 07/04/20 12:00 98.7 101 18 124/69 (87) 95 Intake and Output 07/04/20 07/05/20 19:00 07:00 Intake Total 800 ml 550 ml Output Total 700 ml 450 ml Balance 100 ml 100 ml Intake Oral 800 ml 550 ml Output Urine Total 700 ml 450 ml Laboratory Tests Test 07/05/20 05:05 White Blood Count 9.4 K/UL (4.8-10.8) Red Blood Count 3.03 M/UL (4.20-5.40) L Hemoglobin 9.0 G/DL (12.0-16.0) L Hematocrit 27.3 % (37.0-47.0) L Mean Corpuscular Volume 90 FL (80-99) Mean Corpuscular Hemoglobin 29.7 PG (27.0-31.0) Mean Corpuscular Hemoglobin Concent 33.0 G/DL (32.0-36.0) Red Cell Distribution Width 12.4 % (11.6-14.8) Platelet Count 249 K/UL (150-450) Mean Platelet Volume 7.4 FL (6.5-10.1) Neutrophils (%) (Auto) 69.1 % (45.0-75.0) Lymphocytes (%) (Auto) 13.1 % (20.0-45.0) L Monocytes (%) (Auto) 11.8 % (1.0-10.0) H Eosinophils (%) (Auto) 4.7 % (0.0-3.0) H Basophils (%) (Auto) 1.4 % (0.0-2.0) Objective HEAD AND NECK: No JVD LUNGS: Clear. CARDIOVASCULAR: Regular S1 and S2 with no gallop or murmur. ABDOMEN: Soft. EXTREMITIES: No pitting edema. S/P ORIF Tim Chávez MD Jul 05, 2020 10:37
--- NOTE | 2020-07-05 10:48 | NUR ---
*-*DISCHARGE PLANNING*-* PATIENT HAS BEEN REFERRED TO [facility] P: [phone]
--- NOTE | 2020-07-05 10:48 | Pulmonology Progress Note ---
Subjective Allergies: Coded Allergies: No Known Allergies (Verified , 07/17/10) Subjective s/p ORIF 07/02 pain controlled with current regimen evaluated by PT no SOB, no CP no fevers comfortable Objective Last 24 Hour Vital Signs Date Time Temp Pulse Resp B/P (MAP) Pulse Ox O2 Delivery O2 Flow Rate FiO2 07/05/20 09:00 Room Air 07/05/20 08:41 104 149/76 07/05/20 08:41 149/76 07/05/20 08:00 99.3 104 18 149/76 (100) 95 07/05/20 04:00 98.4 96 18 138/76 (96) 95 07/05/20 00:00 98.2 98 18 134/75 (94) 94 07/04/20 21:54 145/92 07/04/20 21:00 Room Air 07/04/20 20:00 98.3 109 18 145/92 (109) 94 07/04/20 16:00 98.7 98 18 149/73 (98) 93 07/04/20 14:40 98.7 07/04/20 12:00 98.7 101 18 124/69 (87) 95 Intake and Output 07/04/20 07/05/20 19:00 07:00 Intake Total 800 ml 550 ml Output Total 700 ml 450 ml Balance 100 ml 100 ml Intake Oral 800 ml 550 ml Output Urine Total 700 ml 450 ml Objective General Appearance: no apparent distress, sedated Lines, tubes and drains: peripheral HEENT: normocephalic, atraumatic, anicteric, Respiratory/Chest: chest wall non-tender, lungs clear, no respiratory distress, no accessory muscle use Cardiovascular/Chest: normal rate - Abdomen: normal bowel sounds, non tender, soft Extremities: normal range of motion, no calf tenderness, normal capillary refill, R hip dressing C/D/I Skin Exam: normal pigmentation, warm/dry Neurologic: sedated, Musculoskeletal: normal muscle bulk Laboratory Tests 07/05/20 05:05: White Blood Count 9.4, Red Blood Count 3.03L, Hemoglobin 9.0L, Hematocrit 27.3L, Mean Corpuscular Volume 90, Mean Corpuscular Hemoglobin 29.7, Mean Corpuscular Hemoglobin Concent 33.0, Red Cell Distribution Width 12.4, Platelet Count 249, Mean Platelet Volume 7.4, Neutrophils (%) (Auto) 69.1, Lymphocytes (%) (Auto) 13.1L, Monocytes (%) (Auto) 11.8H, Eosinophils (%) (Auto) 4.7H, Basophils (%) (Auto) 1.4 Current Medications Medications (Trade) Dose Ordered Sig/Maliha Route PRN Reason Start Time Stop Time Status Last Admin Dose Admin Acetaminophen (Tylenol) 650 mg Q4H PRN ORAL Mild Pain (Pain Scale 1-3) 07/02/20 06:45 08/01/20 06:44 07/05/20 08:41 Acetaminophen (Tylenol) 650 mg Q4H PRN ORAL Temp >100.5 07/02/20 06:45 08/01/20 06:44 07/02/20 20:14 Acetaminophen/ Hydrocodone Bitart ([place] 5/325) 2 tab Q6H PRN ORAL Severe Pain (Pain Scale 7-10) 07/02/20 06:45 07/09/20 06:44 Acetaminophen/ Hydrocodone Bitart ([place] 7.5/325) 1 tab Q4H PRN ORAL Moderate Pain (Pain Scale 4-6) 07/02/20 06:45 07/09/20 06:44 Al Hydroxide/Mg Hydroxide (Mylanta) 30 ml Q6H PRN ORAL HEARTBURN 07/02/20 18:45 08/01/20 18:44 Aspirin (ASA) 325 mg BID ORAL 07/03/20 09:00 08/17/20 08:59 07/05/20 08:41 Celecoxib (CeleBREX) 200 mg DAILY ORAL 07/03/20 09:00 10/01/20 08:59 07/05/20 08:40 Docusate Sodium (Colace) 100 mg THREE TIMES A DAY ORAL 07/02/20 13:00 08/01/20 12:59 07/05/20 08:41 Famotidine (Pepcid) 20 mg DAILY ORAL 07/03/20 09:00 10/01/20 08:59 07/05/20 08:41 Ferrous Sulfate (Feosol) 325 mg THREE TIMES A DAY ORAL 07/02/20 13:00 09/30/20 12:59 07/05/20 08:41 Hydromorphone HCl (Dilaudid) 1 mg Q4H PRN SUBQ Mild Pain (Pain Scale 1-3) 07/02/20 06:45 07/09/20 06:44 Lisinopril (PriniviL) 20 mg Q12HR ORAL 06/30/20 21:00 07/30/20 20:59 07/05/20 08:41 Magnesium Hydroxide (Mom) 30 ml DAILYPRN PRN ORAL Constipation 07/02/20 06:45 08/01/20 06:44 Metoprolol Succinate (Toprol XL) 25 mg DAILY ORAL 07/01/20 09:00 09/29/20 08:59 07/05/20 08:41 Morphine Sulfate (Morphine Sulfate) 2 mg Q4H PRN IVP PAIN 5-7 07/01/20 11:30 07/08/20 11:29 07/04/20 05:54 Morphine Sulfate (Morphine Sulfate) 4 mg Q4H PRN IVP Severe Pain (Pain Scale 7-10) 07/01/20 11:30 07/07/20 11:29 Ondansetron HCl (Zofran) 4 mg Q6H PRN IVP Nausea & Vomiting 07/01/20 11:30 07/31/20 11:29 Oxycodone HCl (OxyCONTIN) 10 mg Q12H ORAL 07/02/20 13:00 07/09/20 12:59 07/04/20 14:10 Polyethylene Glycol (Miralax) 17 gm HSPRN PRN ORAL Constipation 06/30/20 16:15 07/30/20 16:14 Prochlorperazine (Compazine) 10 mg Q6H PRN IVP Nausea & Vomiting 07/02/20 06:45 08/01/20 06:44 Venlafaxine HCl (Effexor) 25 mg THREE TIMES A DAY ORAL 06/30/20 18:00 09/28/20 17:59 07/05/20 08:41 Assessment/Plan Assessment/Plan ASSESSMENT Right intertrochanteric fracture s/p mechanical fall s/p ORIF R hip 07/02 HTN HLD Hx of [place] Depression PLAN OF CARE MS floor cardio cleared for surgery ECHO with pEF , mild pulm HTN troponin x 2 NGT BP management with current regimen- stable lipid panel with elevated LDL need statin on dc and education on low fat low cholesterol diet s/p ORIF 07/02 pain management, DVT prophylaxis start when cleared by surgery hip surgery precautions PT eval and Rx noted-> [facility], dc plan consult requested for placement fall precautions IS q 1 x 10 while in the bed home meds resumed supportive care dc plan in progress case discussed and evaluated by supervising physician Marley Bansal NP Jul 05, 2020 10:48
[2020-07-05 12:00] VITALS: BP 155/81
--- NOTE | 2020-07-05 15:34 | NUR ---
CASE MANAGEMENT:REVIEW SI;POD #3 RIGHT HIP ORIF 99.3 104 18 155/81 93% ON RA H/H 9.0/27.3 IS;ASA PO BID CELEBREX PO QD OXYCODONE PO Q12 TYLENOL PO Q4 PRN TOPROL XL PO QD LISINOPRIL PO Q12 MED SURG STATUS DCP;FROM HOME PLAN;REHAB
[2020-07-05 16:00] VITALS: BP 157/86
--- NOTE | 2020-07-05 18:50 | NUR ---
NURSE HAND-OFF: Important Events on Shift:PRN pain meds given x 1 @1729 Patient Status: stable Diet: regular Pending Orders: n/a Pending Results/Labs:n/a Pending MD notification:n/a Latest Vital Signs: Temperature 98.6 , Pulse 102 , B/P 157 /86 , Respiratory Rate 18 , O2 SAT 93 , Nasal Cannula, O2 Flow Rate 2.0 . Vital Sign Comment: stable Latest Austin Fall Score: 70 Fall Risk: High Risk Safety Measures: Call light Within Reach, Bed Alarm Zone 1, Side Rails Side Rails x2, Bed position Low and Locked. Fall Precautions: Yellow Socks Door Sign Patient Fall Education Report given to JUAN ALBERTO Michaels.
--- NOTE | 2020-07-05 19:11 | Surgery Progress Note ---
Surgery Progress Note Subjective Additional Comments pain controlled resting comfortable no n/v pending placement referred to cri Objective Last 24 Hour Vital Signs Date Time Temp Pulse Resp B/P (MAP) Pulse Ox O2 Delivery O2 Flow Rate FiO2 07/05/20 16:00 98.6 102 18 157/86 (109) 93 07/05/20 12:00 98.5 87 18 155/81 (105) 93 07/05/20 09:00 Room Air 07/05/20 08:41 104 149/76 07/05/20 08:41 149/76 07/05/20 08:00 99.3 104 18 149/76 (100) 95 07/05/20 04:00 98.4 96 18 138/76 (96) 95 07/05/20 00:00 98.2 98 18 134/75 (94) 94 07/04/20 21:54 145/92 07/04/20 21:00 Room Air 07/04/20 20:00 98.3 109 18 145/92 (109) 94 I&O Intake and Output 07/04/20 07/05/20 19:00 07:00 Intake Total 800 ml 550 ml Output Total 700 ml 450 ml Balance 100 ml 100 ml Intake Oral 800 ml 550 ml Output Urine Total 700 ml 450 ml Cardiovascular: RSR Respiratory: clear Abdomen: soft, flat, non-tender, present bowel sounds Extremities: no tenderness, no cyanosis Laboratory Tests Test 07/05/20 05:05 White Blood Count 9.4 K/UL (4.8-10.8) Red Blood Count 3.03 M/UL (4.20-5.40) L Hemoglobin 9.0 G/DL (12.0-16.0) L Hematocrit 27.3 % (37.0-47.0) L Mean Corpuscular Volume 90 FL (80-99) Mean Corpuscular Hemoglobin 29.7 PG (27.0-31.0) Mean Corpuscular Hemoglobin Concent 33.0 G/DL (32.0-36.0) Red Cell Distribution Width 12.4 % (11.6-14.8) Platelet Count 249 K/UL (150-450) Mean Platelet Volume 7.4 FL (6.5-10.1) Neutrophils (%) (Auto) 69.1 % (45.0-75.0) Lymphocytes (%) (Auto) 13.1 % (20.0-45.0) L Monocytes (%) (Auto) 11.8 % (1.0-10.0) H Eosinophils (%) (Auto) 4.7 % (0.0-3.0) H Basophils (%) (Auto) 1.4 % (0.0-2.0) Plan Problems: (1) Hip pain (2) Fracture of femoral neck, right (3) Fall Assessment & Plan: fall while standing ground level no loc full exam done. no other subsequent injury noted ct reviewed fairly isolated ortho. ortho input appreciated pain control pt/ot thank you There is marked age-related enlargement of the ventricles and extra axial CSF spaces. There is considerable periventricular deep white matter low- attenuation, consistent with chronic microvascular ischemic changes. No acute intracranial hemorrhage or edema. No mass effect nor midline shift. Otherwise normal riddle- white differentiation. The calvarium is intact. The mastoids are clear. There is maxillary, ethmoid, and sphenoid sinus disease. No acute fracture. No dislocation. No prevertebral soft tissue swelling. There is slight anterior offset of C2 on C3, C3 on C4, and C4 on C5. There is thickening and calcification of the posterior transverse ligament of the odontoid. There is degenerative narrowing the anterior atlantoaxial joint. At C2-3, there is bilateral facet arthrosis. No significant disc bulge or protrusion or spinal stenosis. At C3-4, there is severe left neural foraminal stenosis. No significant disc bulge or protrusion, spinal stenosis, or neural foraminal stenosis. There is facet arthrosis on the left. At C4-5, no significant disc bulge or protrusion, spinal stenosis, or neural foraminal stenosis. At C5-6, there is mild degenerative disc narrowing. There is mild bilateral neural foraminal narrowing. At C6-7 and C7-T1, no significant disc bulge or protrusion, spinal stenosis, or neural foraminal stenosis. There is bilateral facet arthrosis. There is some mucosal irregularity with surface bubbles involving the posterior nasopharynx. There is extensive sinus disease. Impression: No acute bony trauma Degenerative changes as detailed on a level by level basis above Some apparent surface irregularity of the posterior nasopharynx. Probably due to secretions, but mucosal lesion also possible. Consider direct inspection (4) Hip fracture, right (5) Intertrochanteric fracture of right femur Assessment & Plan: There is a comminuted intertrochanteric fracture of the right hip. No associated pelvic fracture. The bones are osteoporotic. The joint spaces are preserved. Impression: Positive for right hip intertrochanteric fracture as per ortho thank you s/p Right hip open reduction and internal fixation using a short 120-degree by 10 mm diameter gamma nail with distal screw fixation. Roldan Rose Jul 05, 2020 19:11
[2020-07-05 20:00] VITALS: BP 147/67
--- NOTE | 2020-07-05 20:17 | NUR ---
NURSES NOTE: Pt in bed/ A/OX4, denies discomfort or pain currently. No outward s/s of distress noted. Breathing pattern is even and unlabored on RA. Dressing R hip is in place, dry and intact. IV L FA, is in place, hep locked. Pur wickl in place. All due medications will be administered. Bed at lowest level. Call light within reach. Pt will continue to be monitored.
[2020-07-06] MEDS: oxyCONTIN 10mg tab ORAL SCH ×3 (00:40→13:06)
[2020-07-06 04:00] VITALS: BP 149/78
--- NOTE | 2020-07-06 07:15 | NUR ---
NURSE NOTES: Handoff received from Veda AVENDANO. Patient is awake and alert, eating breakfast, no signs of acute distress noted. Left forearm IV is intact and saline locked. Dressing is clean and dry. Bed is low and locked, side rails up x2, call light is within reach.
--- NOTE | 2020-07-06 07:27 | NUR ---
NURSE HAND-OFF: Important Events on Shift:[N/A] Patient Status: [STABLE] Diet: [REGULAR] Pending Orders: [NONE] Pending Results/Labs:[NONE] Pending MD notification:[NONE] Latest Vital Signs: Temperature 97.1 , Pulse 87 , B/P 149 /78 , Respiratory Rate 19 , O2 SAT 95 , Nasal Cannula, O2 Flow Rate 2.0 . Vital Sign Comment: [WNL] Latest Austin Fall Score: 70 Fall Risk: High Risk Safety Measures: Call light Within Reach, Bed Alarm Zone 1, Side Rails Side Rails x2, Bed position Low and Locked. Fall Precautions: Yellow Socks Door Sign Patient Fall Education Report given to [JOSEFA AVENDANO].
[2020-07-06 08:00] VITALS: BP 140/75
[2020-07-06] MEDS: Metoprolol Succinate XL 25mg tab ORAL SCH (08:38)
[2020-07-06] MEDS: Lisinopril 20mg tab ORAL SCH ×2 (08:38→20:39)
[2020-07-06] MEDS: Docusate 100mg cap ORAL SCH ×3 (08:39→18:00)
[2020-07-06] MEDS: Venlafaxine 25mg tab ORAL SCH ×3 (08:39→18:39)
[2020-07-06] MEDS: celeBREX 200mg Cap **SURGERY PATIENTS ONLY ORAL SCH (08:39)
--- NOTE | 2020-07-06 10:56 | Pulmonology Progress Note ---
Subjective Allergies: Coded Allergies: No Known Allergies (Verified , 07/17/10) Subjective s/p ORIF 07/02 pain controlled with current regimen evaluated by PT and working with PT no SOB, no CP no fevers comfortable Objective Last 24 Hour Vital Signs Date Time Temp Pulse Resp B/P (MAP) Pulse Ox O2 Delivery O2 Flow Rate FiO2 07/06/20 09:00 Room Air 07/06/20 08:38 99 140/75 07/06/20 08:38 140/75 07/06/20 08:00 98.1 99 18 140/75 (96) 95 07/06/20 04:00 97.1 87 19 149/78 (101) 95 07/05/20 21:00 Room Air 07/05/20 20:47 147/67 07/05/20 20:00 98.2 94 20 147/67 (93) 94 07/05/20 16:00 98.6 102 18 157/86 (109) 93 07/05/20 12:00 98.5 87 18 155/81 (105) 93 Intake and Output 07/05/20 07/06/20 19:00 07:00 Intake Total 500 ml 480 ml Output Total 1000 ml 350 ml Balance -500 ml 130 ml Intake Oral 500 ml 480 ml Output Urine Total 1000 ml 350 ml Objective General Appearance: no apparent distress, sedated Lines, tubes and drains: peripheral HEENT: normocephalic, atraumatic, anicteric, Respiratory/Chest: chest wall non-tender, lungs clear, no respiratory distress, no accessory muscle use Cardiovascular/Chest: normal rate - Abdomen: normal bowel sounds, non tender, soft Extremities: normal range of motion, no calf tenderness, normal capillary refill, R hip dressing C/D/I Skin Exam: normal pigmentation, warm/dry Neurologic: sedated, Musculoskeletal: normal muscle bulk Current Medications Medications (Trade) Dose Ordered Sig/Maliha Route PRN Reason Start Time Stop Time Status Last Admin Dose Admin Acetaminophen (Tylenol) 650 mg Q4H PRN ORAL Mild Pain (Pain Scale 1-3) 07/02/20 06:45 08/01/20 06:44 07/06/20 00:47 Acetaminophen (Tylenol) 650 mg Q4H PRN ORAL Temp >100.5 07/02/20 06:45 08/01/20 06:44 07/02/20 20:14 Acetaminophen/ Hydrocodone Bitart ([place] 5/325) 2 tab Q6H PRN ORAL Severe Pain (Pain Scale 7-10) 07/02/20 06:45 07/09/20 06:44 Acetaminophen/ Hydrocodone Bitart ([place] 7.5/325) 1 tab Q4H PRN ORAL Moderate Pain (Pain Scale 4-6) 07/02/20 06:45 07/09/20 06:44 07/05/20 17:29 Al Hydroxide/Mg Hydroxide (Mylanta) 30 ml Q6H PRN ORAL HEARTBURN 07/02/20 18:45 08/01/20 18:44 Aspirin (ASA) 325 mg BID ORAL 07/03/20 09:00 08/17/20 08:59 07/06/20 08:39 Celecoxib (CeleBREX) 200 mg DAILY ORAL 07/03/20 09:00 10/01/20 08:59 07/06/20 08:39 Docusate Sodium (Colace) 100 mg THREE TIMES A DAY ORAL 07/02/20 13:00 08/01/20 12:59 07/06/20 08:39 Famotidine (Pepcid) 20 mg DAILY ORAL 07/03/20 09:00 10/01/20 08:59 07/06/20 08:39 Ferrous Sulfate (Feosol) 325 mg THREE TIMES A DAY ORAL 07/02/20 13:00 09/30/20 12:59 07/06/20 08:39 Hydromorphone HCl (Dilaudid) 1 mg Q4H PRN SUBQ Mild Pain (Pain Scale 1-3) 07/02/20 06:45 07/09/20 06:44 Lisinopril (PriniviL) 20 mg Q12HR ORAL 06/30/20 21:00 07/30/20 20:59 07/06/20 08:38 Magnesium Hydroxide (Mom) 30 ml DAILYPRN PRN ORAL Constipation 07/02/20 06:45 08/01/20 06:44 07/05/20 13:41 Metoprolol Succinate (Toprol XL) 25 mg DAILY ORAL 07/01/20 09:00 09/29/20 08:59 07/06/20 08:38 Morphine Sulfate (Morphine Sulfate) 2 mg Q4H PRN IVP PAIN 5-7 07/01/20 11:30 07/08/20 11:29 07/04/20 05:54 Morphine Sulfate (Morphine Sulfate) 4 mg Q4H PRN IVP Severe Pain (Pain Scale 7-10) 07/01/20 11:30 07/07/20 11:29 Ondansetron HCl (Zofran) 4 mg Q6H PRN IVP Nausea & Vomiting 07/01/20 11:30 07/31/20 11:29 Oxycodone HCl (OxyCONTIN) 10 mg Q12H ORAL 07/02/20 13:00 07/09/20 12:59 07/05/20 13:40 Polyethylene Glycol (Miralax) 17 gm HSPRN PRN ORAL Constipation 06/30/20 16:15 07/30/20 16:14 07/05/20 13:41 Prochlorperazine (Compazine) 10 mg Q6H PRN IVP Nausea & Vomiting 07/02/20 06:45 08/01/20 06:44 Venlafaxine HCl (Effexor) 25 mg THREE TIMES A DAY ORAL 06/30/20 18:00 09/28/20 17:59 07/06/20 08:39 Assessment/Plan Assessment/Plan ASSESSMENT Right intertrochanteric fracture s/p mechanical fall s/p ORIF R hip 07/02 HTN HLD Hx of [place] Depression PLAN OF CARE MS floor cardio cleared for surgery ECHO with pEF , mild pulm HTN troponin x 2 NGT BP management with current regimen- stable lipid panel with elevated LDL need statin on dc and education on low fat low cholesterol diet s/p ORIF 07/02 pain management, DVT prophylaxis start when cleared by surgery - on ASA bid per surgery now hip surgery precautions PT eval and Rx noted-> [facility] dc plan in progress after bed secured meantime continue PT RX, WB as per ortho recs fall precautions IS q 1 x 10 while in the bed home meds resumed supportive care dc plan in progress case discussed and evaluated by supervising physician Marley Bansal NP Jul 06, 2020 10:56
--- NOTE | 2020-07-06 11:47 | Cardiac Electrophysiology PN ---
Assessment/Plan Assessment/Plan 1. Hypertension. On lisinopril 20 mg bid, Toprol-XL 25 mg daily and p.r.n. clonidine 2. Coronary artery disease with history of stent in the past. No chest pain. EKG is nonischemic and EF 60% The patient stable and tolerated right hip surgery 3. Hypertension. Continue lisinopril and metoprolol. 4. Right hip Fx. S/P ORIF. ARU eval pending BARAK RN Subjective Subjective S/P Right hip ORIF. No CP or SOB. No events Objective Last 24 Hour Vital Signs Date Time Temp Pulse Resp B/P (MAP) Pulse Ox O2 Delivery O2 Flow Rate FiO2 07/06/20 09:00 Room Air 07/06/20 08:38 99 140/75 07/06/20 08:38 140/75 07/06/20 08:00 98.1 99 18 140/75 (96) 95 07/06/20 04:00 97.1 87 19 149/78 (101) 95 07/05/20 21:00 Room Air 07/05/20 20:47 147/67 07/05/20 20:00 98.2 94 20 147/67 (93) 94 07/05/20 16:00 98.6 102 18 157/86 (109) 93 07/05/20 12:00 98.5 87 18 155/81 (105) 93 Intake and Output 07/05/20 07/06/20 19:00 07:00 Intake Total 500 ml 480 ml Output Total 1000 ml 350 ml Balance -500 ml 130 ml Intake Oral 500 ml 480 ml Output Urine Total 1000 ml 350 ml Objective HEAD AND NECK: No JVD LUNGS: Clear. CARDIOVASCULAR: Regular S1 and S2 with no gallop or murmur. ABDOMEN: Soft. EXTREMITIES: No pitting edema. S/P ORIF Tim Chávez MD Jul 06, 2020 11:47
[2020-07-06 12:00] VITALS: BP 151/81
--- NOTE | 2020-07-06 13:28 | NUR ---
DISCHARGE PLANNING PATIENT HAS BEEN REFERRED TO THE FOLLOWING: [facility] P [phone] F [phone] [facility] P [phone] F [phone] PER RAY, NO ADMISSIONS OF TODAY. CM TO F/U 07/07/20. [facility] P [phone] F [phone] [facility] P [phone] F [phone] [facility] P [phone] F [phone] [facility] P [phone] F [phone] [facility] P [phone] F [phone] PER [facility], THIS FACILITY IS DESIGNATED COVID ONLY AT THIS TIME
--- NOTE | 2020-07-06 13:36 | NUR ---
SOIL CONSERVATION AIDE NOTE S/W NERY AT [facility] [phone]. NERY INFORMED THIS CM THAT PER [facility] FELECIA, ARU WILL NOT BE AUTHORIZED. MUST REFER PATIENT TO CONTRACTED SNF's FIRST.
--- NOTE | 2020-07-06 13:40 | NUR ---
CASE MANAGEMENT:REVIEW SI;POD #4 RT HIP ORIF 98.1 99 19 151/81 95% ON RA IS;PEPCID PO QD ASA PO BID OXYCONTIN PO Q12 TYLENOL PO Q4 PRN MED SURG STATUS DCP;FROM HOME PLAN;SNF PLACEMENT FOR REHAB
--- NOTE | 2020-07-06 14:46 | Cardiology Report ---
APPROVED REPORT EXAM: Two-dimensional and M-mode echocardiogram with Doppler and color Doppler. INDICATION Pre-op surgical eval M-Mode DIMENSIONS IVSd1.3 (0.7-1.1cm)Left Atrium (MM)3.2 (1.6-4.0cm) LVDd4.3 (3.5-5.6cm)Aortic Root3.1 (2.0-3.7cm) PWd1.1 (0.7-1.1cm)Aortic Cusp Exc.1.8 (1.5-2.0cm) IVSs1.9 cmEPSS0.3 (>1.0cm) LVDs2.5 (2.5-4.0cm) PWs1.3 cm <Conclusion> Normal left ventricular chamber size, systolic function and wall motion. Left ventricular ejection fraction estimated to be 60%. Mild left ventricular hypertrophy. No evidence of pericardial effusion. Mild bi-atrial enlargement. Focal aortic valve sclerosis with adequate cusp excursion. Thickened mitral valve leaflets with normal excursion. Mitral annulus and aortic root calcification. Normal pulmonic valve structure. Normal tricuspid valve structure. IVC at normal with collapsing with respiration. A color flow and spectral Doppler study was performed and revealed: No aortic regurgitation. Trace mitral regurgitation. Mitral diastolic velocities of E & A equalization & Tissue Doppler Imaging suggest mildly reduced left ventricular relaxation c/w impaired relaxation diastolic dysfunction. Moderate tricuspid regurgitation. Tricuspid systolic velocities suggests peak right ventricular systolic pressure of 59 mmHg. Trace pulmonary hypertension.
--- NOTE | 2020-07-06 15:16 | NUR ---
*-*DISCHARGE PLANNING*-* PATIENT HAS BEEN ACCEPTED TO: [facility] – [place], [place] P: [phone] S/W BARBY WILL CALL BACK TO GIVE ROOM NUMBER FOR TOMORROW 07/07/20.
[2020-07-06 16:00] VITALS: BP 147/84
--- NOTE | 2020-07-06 19:30 | NUR ---
NURSE HAND-OFF: Important Events on Shift:[none] Patient Status: stable Diet: regular Pending Orders: Pending Results/Labs: Pending MD notification: Latest Vital Signs: Temperature 97.9 , Pulse 92 , B/P 147 /84 , Respiratory Rate 18 , O2 SAT 95 , Nasal Cannula, O2 Flow Rate 2.0 . Vital Sign Comment: stable Latest Austin Fall Score: 70 Fall Risk: High Risk Safety Measures: Call light Within Reach, Bed Alarm Zone 1, Side Rails Side Rails x2, Bed position Low and Locked. Fall Precautions: Yellow Socks Door Sign Patient Fall Education Report given to Griffin AVENDANO.
[2020-07-06 20:00] VITALS: BP 145/87
--- NOTE | 2020-07-06 20:15 | NUR ---
NURSE NOTES: pt vital signs stable. pt in no acute distress and no co of pain at the moment.
--- NOTE | 2020-07-06 21:01 | Surgery Progress Note ---
Surgery Progress Note Subjective Symptoms: improved, tolerating diet, voiding well, passing flatus, BM, pain decreased Additional Comments working well with pt ambulatory Objective Last 24 Hour Vital Signs Date Time Temp Pulse Resp B/P (MAP) Pulse Ox O2 Delivery O2 Flow Rate FiO2 07/06/20 20:39 145/87 07/06/20 16:53 97.9 07/06/20 16:00 98.1 92 18 147/84 (105) 95 07/06/20 13:36 97.9 07/06/20 12:00 97.9 90 18 151/81 (104) 96 07/06/20 09:00 Room Air 07/06/20 08:38 99 140/75 07/06/20 08:38 140/75 07/06/20 08:00 98.1 99 18 140/75 (96) 95 07/06/20 04:00 97.1 87 19 149/78 (101) 95 I&O Intake and Output 07/05/20 07/06/20 19:00 07:00 Intake Total 500 ml 480 ml Output Total 1000 ml 350 ml Balance -500 ml 130 ml Intake Oral 500 ml 480 ml Output Urine Total 1000 ml 350 ml Dressing: dry Wound: clean Cardiovascular: RSR Respiratory: clear Abdomen: soft, non-tender, present bowel sounds Extremities: no edema, no tenderness, no cyanosis Plan Problems: (1) Hip pain (2) Fracture of femoral neck, right (3) Fall Assessment & Plan: fall while standing ground level no loc full exam done. no other subsequent injury noted ct reviewed fairly isolated ortho. ortho input appreciated pain control pt/ot thank you There is marked age-related enlargement of the ventricles and extra axial CSF spaces. There is considerable periventricular deep white matter low- attenuation, consistent with chronic microvascular ischemic changes. No acute intracranial hemorrhage or edema. No mass effect nor midline shift. Otherwise normal riddle- white differentiation. The calvarium is intact. The mastoids are clear. There is ma xillary, ethmoid, and sphenoid sinus disease. No acute fracture. No dislocation. No prevertebral soft tissue swelling. There is slight anterior offset of C2 on C3, C3 on C4, and C4 on C5. There is thickening and calcification of the posterior transverse ligament of the odontoid. There is degenerative narrowing the anterior atlantoaxial joint. At C2-3, there is bilateral facet arthrosis. No significant disc bulge or protrusion or spinal stenosis. At C3-4, there is severe left neural foraminal stenosis. No significant disc bulge or protrusion, spinal stenosis, or neural foraminal stenosis. There is facet arthrosis on the left. At C4-5, no significant disc bulge or protrusion, spinal stenosis, or neural foraminal stenosis. At C5-6, there is mild degenerative disc narrowing. There is mild bilateral neural foraminal narrowing. At C6-7 and C7-T1, no significant disc bulge or protrusion, spinal stenosis, or neural foraminal stenosis. There is bilateral facet arthrosis. There is some mucosal irregularity with surface bubbles involving the posterior nasopharynx. There is extensive sinus disease. Impression: No acute bony trauma Degenerative changes as detailed on a level by level basis above Some apparent surface irregularity of the posterior nasopharynx. Probably due to secretions, but mucosal lesion also possible. Consider direct inspection (4) Hip fracture, right (5) Intertrochanteric fracture of right femur Assessment & Plan: There is a comminuted intertrochanteric fracture of the right hip. No associated pelvic fracture. The bones are osteoporotic. The joint spaces are preserved. Impression: Positive for right hip intertrochanteric fracture as per ortho thank you s/p Right hip open reduction and internal fixation using a short 120-degree by 10 mm diameter gamma nail with distal screw fixation. Roldan Rose Jul 06, 2020 21:01
--- NOTE | 2020-07-06 21:19 | NUR ---
NURSE NOTES: received pt and report from JUAN ALBERTO Jackson. pt alert and oriented x 4 with no acute s/s of distress and no co pain at the moment. purewick draining. IV site clean dry and intact and hep locked. plan of care discussed. surgical dressing clean dry and intact. Addendum: 07/06/20 at 2122 by Griffin Morales RN pt seen at 0 after receiving report.
[2020-07-07] VITALS: BP 145/85
[2020-07-07] MEDS: oxyCONTIN 10mg tab ORAL SCH ×2 (00:14→13:00)
--- NOTE | 2020-07-07 00:20 | NUR ---
NURSE NOTES: vital signs stable, pt in no acute distress, pt with 3/10 co pain, will give pain med.
[2020-07-07 04:00] VITALS: BP 145/79
--- NOTE | 2020-07-07 04:15 | NUR ---
NURSE NOTES: pt vital signs stable, pt with no acute ss of distress and no co pain. pt currently sleeping.
[2020-07-07 06:01] LABS: BASOPHILS % (AUTO) 2.6 % (0.0-2.0); EOSINOPHILS % (AUTO) 4.9 % (0.0-3.0); HEMATOCRIT 28.4 % (37.0-47.0); HEMOGLOBIN 9.3 G/DL (12.0-16.0); LYMPHOCYTES % (AUTO) 9.8 % (20.0-45.0); MEAN CORPUSCULAR VOLUME 87 FL (80-99); NEUTROPHILS % (AUTO) 68.8 % (45.0-75.0); PLATELET COUNT 306 K/UL (150-450); RED BLOOD COUNT 3.26 M/UL (4.20-5.40); WHITE BLOOD COUNT 8.9 K/UL (4.8-10.8)
[2020-07-07 06:36] LABS: ANION GAP 5 mmol/L (5-15); BLOOD UREA NITROGEN 18 mg/dL (7-18); CALCIUM 9.2 MG/DL (8.5-10.1); CARBON DIOXIDE 30 MMOL/L (21-32); CHLORIDE 103 MMOL/L (98-107); CREATININE 0.7 MG/DL (0.55-1.30); POTASSIUM 4.4 MMOL/L (3.5-5.1); SODIUM 138 MMOL/L (136-145)
--- NOTE | 2020-07-07 07:25 | NUR ---
NURSE HAND-OFF: Important Events on Shift: NA Patient Status: stable Diet: regular Pending Orders: NA Pending Results/Labs:NA Pending MD notification:NA Latest Vital Signs: Temperature 98.6 , Pulse 89 , B/P 145 /79 , Respiratory Rate 18 , O2 SAT 95 , Nasal Cannula, O2 Flow Rate 2.0 . Vital Sign Comment: stable throught the shift Latest Austin Fall Score: 70 Fall Risk: High Risk Safety Measures: Call light Within Reach, Bed Alarm Zone 1, Side Rails Side Rails x2, Bed position Low and Locked. Fall Precautions: Yellow Socks Door Sign Patient Fall Education Report given to JUAN ALBERTO Rutledge.
--- NOTE | 2020-07-07 07:52 | NUR ---
NURSE NOTES: Received report from JUAN ALBERTO Moya. Pt asleep in bed, breathing even and unlabored on room air. No acute distress noted. Dressing on right hip clean and intact. Bed in lowest position and locked. Call light within reach. Will continue plan of care.
[2020-07-07 08:00] VITALS: BP 150/87
[2020-07-07] MEDS: Docusate 100mg cap ORAL SCH ×2 (09:07→13:27)
[2020-07-07] MEDS: celeBREX 200mg Cap **SURGERY PATIENTS ONLY ORAL SCH (09:07)
[2020-07-07] MEDS: Venlafaxine 25mg tab ORAL SCH ×2 (09:07→13:27)
[2020-07-07] MEDS: Metoprolol Succinate XL 25mg tab ORAL SCH (09:07)
[2020-07-07] MEDS: Lisinopril 20mg tab ORAL SCH (09:08)
--- NOTE | 2020-07-07 10:13 | Cardiac Electrophysiology PN ---
Assessment/Plan Assessment/Plan 1. Hypertension. On lisinopril 20 mg bid, Toprol-XL 25 mg daily and p.r.n. clonidine 2. Coronary artery disease with history of stent in the past. No chest pain. EKG is nonischemic and EF 60% The patient stable and tolerated right hip surgery 3. Hypertension. Continue lisinopril and metoprolol. 4. Right hip Fx. S/P ORIF. PT working with her DW RN Subjective Subjective S/P Right hip ORIF. Sitting in chair. Says wants to go home. No CP or SOB. No events Objective Last 24 Hour Vital Signs Date Time Temp Pulse Resp B/P (MAP) Pulse Ox O2 Delivery O2 Flow Rate FiO2 07/07/20 09:08 150/87 07/07/20 09:07 101 150/87 07/07/20 09:00 Room Air 07/07/20 08:00 98.6 101 18 150/87 (108) 98 07/07/20 04:00 98.6 89 18 145/79 (101) 95 07/07/20 00:00 98.3 89 16 145/85 (105) 95 07/06/20 21:00 Room Air 07/06/20 20:39 145/87 07/06/20 20:00 98.0 96 19 145/87 (106) 95 07/06/20 16:53 97.9 07/06/20 16:00 98.1 92 18 147/84 (105) 95 07/06/20 13:36 97.9 07/06/20 12:00 97.9 90 18 151/81 (104) 96 Intake and Output 07/06/20 07/07/20 19:00 07:00 Intake Total 750 ml 500 ml Output Total 600 ml 900 ml Balance 150 ml -400 ml Intake Oral 750 ml 500 ml Output Urine Total 600 ml 900 ml Laboratory Tests Test 07/07/20 05:08 White Blood Count 8.9 K/UL (4.8-10.8) Red Blood Count 3.26 M/UL (4.20-5.40) L Hemoglobin 9.3 G/DL (12.0-16.0) L Hematocrit 28.4 % (37.0-47.0) L Mean Corpuscular Volume 87 FL (80-99) Mean Corpuscular Hemoglobin 28.7 PG (27.0-31.0) Mean Corpuscular Hemoglobin Concent 32.9 G/DL (32.0-36.0) Red Cell Distribution Width 12.0 % (11.6-14.8) Platelet Count 306 K/UL (150-450) Mean Platelet Volume 7.7 FL (6.5-10.1) Neutrophils (%) (Auto) 68.8 % (45.0-75.0) Lymphocytes (%) (Auto) 9.8 % (20.0-45.0) L Monocytes (%) (Auto) 14.0 % (1.0-10.0) H Eosinophils (%) (Auto) 4.9 % (0.0-3.0) H Basophils (%) (Auto) 2.6 % (0.0-2.0) H Sodium Level 138 MMOL/L (136-145) Potassium Level 4.4 MMOL/L (3.5-5.1) Chloride Level 103 MMOL/L (98-107) Carbon Dioxide Level 30 MMOL/L (21-32) Anion Gap 5 mmol/L (5-15) Blood Urea Nitrogen 18 mg/dL (7-18) Creatinine 0.7 MG/DL (0.55-1.30) Estimat Glomerular Filtration Rate > 60 mL/min (>60) Glucose Level 109 MG/DL (74-106) H Calcium Level 9.2 MG/DL (8.5-10.1) Objective HEAD AND NECK: No JVD LUNGS: Clear. CARDIOVASCULAR: Regular S1 and S2 with no gallop or murmur. ABDOMEN: Soft. EXTREMITIES: No pitting edema. S/P ORIF Tim Chávez MD Jul 07, 2020 10:13
--- NOTE | 2020-07-07 10:31 | NUR ---
DISCHARGE PLANNING PER SAMARIA BARCENAS, PATIENT AND DTR PREFER FOR PATIENT TO DC TO HOME WITH HOME HEALTH. S/W NERY [place] [facility] [place] [phone] AND MADE HER AWARE OF CHANGE OF DC PLAN. NERY ADVISED TO REFER PATIENT TO [facility]. INQUIRY FAXED TO [facility] P [phone] F [phone]
--- NOTE | 2020-07-07 11:29 | Pulmonology Progress Note ---
Subjective Allergies: Coded Allergies: No Known Allergies (Verified , 07/17/10) Subjective s/p ORIF 07/02 pain controlled with current regimen evaluated by PT and working with PT no SOB, no CP no fevers comfortable Objective Last 24 Hour Vital Signs Date Time Temp Pulse Resp B/P (MAP) Pulse Ox O2 Delivery O2 Flow Rate FiO2 07/07/20 09:08 150/87 07/07/20 09:07 101 150/87 07/07/20 09:00 Room Air 07/07/20 08:00 98.6 101 18 150/87 (108) 98 07/07/20 04:00 98.6 89 18 145/79 (101) 95 07/07/20 00:00 98.3 89 16 145/85 (105) 95 07/06/20 21:00 Room Air 07/06/20 20:39 145/87 07/06/20 20:00 98.0 96 19 145/87 (106) 95 07/06/20 16:53 97.9 07/06/20 16:00 98.1 92 18 147/84 (105) 95 07/06/20 13:36 97.9 07/06/20 12:00 97.9 90 18 151/81 (104) 96 Intake and Output 07/06/20 07/07/20 19:00 07:00 Intake Total 750 ml 500 ml Output Total 600 ml 900 ml Balance 150 ml -400 ml Intake Oral 750 ml 500 ml Output Urine Total 600 ml 900 ml Objective General Appearance: no apparent distress, sedated Lines, tubes and drains: peripheral HEENT: normocephalic, atraumatic, anicteric, Respiratory/Chest: chest wall non-tender, lungs clear, no respiratory distress, no accessory muscle use Cardiovascular/Chest: normal rate - Abdomen: normal bowel sounds, non tender, soft Extremities: normal range of motion, no calf tenderness, normal capillary refill, R hip dressing C/D/I Skin Exam: normal pigmentation, warm/dry Neurologic: sedated, Musculoskeletal: normal muscle bulk Laboratory Tests 07/07/20 05:08: White Blood Count 8.9, Red Blood Count 3.26L, Hemoglobin 9.3L, Hematocrit 28.4L, Mean Corpuscular Volume 87, Mean Corpuscular Hemoglobin 28.7, Mean Corpuscular Hemoglobin Concent 32.9, Red Cell Distribution Width 12.0, Platelet Count 306, Mean Platelet Volume 7.7, Neutrophils (%) (Auto) 68.8, Lymphocytes (%) (Auto) 9.8L, Monocytes (%) (Auto) 14.0H, Eosinophils (%) (Auto) 4.9H, Basophils (%) (Auto) 2.6H, Sodium Level 138, Potassium Level 4.4, Chloride Level 103, Carbon Dioxide Level 30, Anion Gap 5, Blood Urea Nitrogen 18, Creatinine 0.7, Estimat Glomerular Filtration Rate > 60, Glucose Level 109H, Calcium Level 9.2 Current Medications Medications (Trade) Dose Ordered Sig/Maliha Route PRN Reason Start Time Stop Time Status Last Admin Dose Admin Acetaminophen (Tylenol) 650 mg Q4H PRN ORAL Mild Pain (Pain Scale 1-3) 07/02/20 06:45 08/01/20 06:44 07/06/20 16:23 Acetaminophen (Tylenol) 650 mg Q4H PRN ORAL Temp >100.5 07/02/20 06:45 08/01/20 06:44 07/02/20 20:14 Acetaminophen/ Hydrocodone Bitart ([place] 5/325) 2 tab Q6H PRN ORAL Severe Pain (Pain Scale 7-10) 07/02/20 06:45 07/09/20 06:44 Acetaminophen/ Hydrocodone Bitart ([place] 7.5/325) 1 tab Q4H PRN ORAL Moderate Pain (Pain Scale 4-6) 07/02/20 06:45 07/09/20 06:44 07/05/20 17:29 Al Hydroxide/Mg Hydroxide (Mylanta) 30 ml Q6H PRN ORAL HEARTBURN 07/02/20 18:45 08/01/20 18:44 Aspirin (ASA) 325 mg BID ORAL 07/03/20 09:00 08/17/20 08:59 07/07/20 09:07 Celecoxib (CeleBREX) 200 mg DAILY ORAL 07/03/20 09:00 10/01/20 08:59 07/07/20 09:07 Docusate Sodium (Colace) 100 mg THREE TIMES A DAY ORAL 07/02/20 13:00 08/01/20 12:59 07/07/20 09:07 Famotidine (Pepcid) 20 mg DAILY ORAL 07/03/20 09:00 10/01/20 08:59 07/07/20 09:07 Ferrous Sulfate (Feosol) 325 mg THREE TIMES A DAY ORAL 07/02/20 13:00 09/30/20 12:59 07/07/20 09:07 Hydromorphone HCl (Dilaudid) 1 mg Q4H PRN SUBQ Mild Pain (Pain Scale 1-3) 07/02/20 06:45 07/09/20 06:44 Lisinopril (PriniviL) 20 mg Q12HR ORAL 06/30/20 21:00 07/30/20 20:59 07/07/20 09:08 Magnesium Hydroxide (Mom) 30 ml DAILYPRN PRN ORAL Constipation 07/02/20 06:45 08/01/20 06:44 07/05/20 13:41 Metoprolol Succinate (Toprol XL) 25 mg DAILY ORAL 07/01/20 09:00 09/29/20 08:59 07/07/20 09:07 Morphine Sulfate (Morphine Sulfate) 2 mg Q4H PRN IVP PAIN 5-7 07/01/20 11:30 07/08/20 11:29 07/04/20 05:54 Morphine Sulfate (Morphine Sulfate) 4 mg Q4H PRN IVP Severe Pain (Pain Scale 7-10) 07/01/20 11:30 07/07/20 11:29 Ondansetron HCl (Zofran) 4 mg Q6H PRN IVP Nausea & Vomiting 07/01/20 11:30 07/31/20 11:29 Oxycodone HCl (OxyCONTIN) 10 mg Q12H ORAL 07/02/20 13:00 07/09/20 12:59 07/07/20 00:14 Polyethylene Glycol (Miralax) 17 gm HSPRN PRN ORAL Constipation 06/30/20 16:15 07/30/20 16:14 07/05/20 13:41 Prochlorperazine (Compazine) 10 mg Q6H PRN IVP Nausea & Vomiting 07/02/20 06:45 08/01/20 06:44 Venlafaxine HCl (Effexor) 25 mg THREE TIMES A DAY ORAL 06/30/20 18:00 09/28/20 17:59 07/07/20 09:07 Assessment/Plan Assessment/Plan ASSESSMENT Right intertrochanteric fracture s/p mechanical fall s/p ORIF R hip 07/02 HTN HLD Hx of SC Depression PLAN OF CARE MS floor cardio cleared for surgery ECHO with pEF , mild pulm HTN troponin x 2 NGT BP management with current regimen- stable lipid panel with elevated LDL need statin on dc and education on low fat low cholesterol diet s/p ORIF 07/02 pain management, DVT prophylaxis start when cleared by surgery - on ASA bid per surgery now hip surgery precautions PT eval and Rx noted-> [facility] dc plan in progress after bed secured meantime continue PT RX, WB as per ortho recs fall precautions IS q 1 x 10 while in the bed home meds resumed supportive care CRI not covered by insurance accepted to SNF for a short rehab pt prefers HH with PT, covered by insurance as well spoke with Pamela/daughter , who prefers short term rehab but is worried about current COVID pandemic PT recommends short term SNF over HH with PT ( as more intense program) dc plan in progress case discussed and evaluated by supervising physician Marley Bansal NP Jul 07, 2020 11:29
--- NOTE | 2020-07-07 11:49 | NUR ---
*-*DISCHARGE PLANNED*-* PATIENT HAS BEEN ACCEPTED WITH: [facility] P: [phone] S/W EVGENY, WILL SERVICE PATIENT UPON DISCHARGE PLAN.
[2020-07-07 12:00] VITALS: BP 143/80
[2020-07-07] MEDS ORDERED: COLACE100 MG ORAL (14:02)
[2020-07-07] MEDS ORDERED: ACETAMINOPHEN325 M1 ORAL (14:02)
[2020-07-07] MEDS ORDERED: NORCO 7.5-3251 EACH ORAL (14:02)
[2020-07-07] MEDS ORDERED: ASPIRIN325 MG ORAL (14:02)
[2020-07-07] MEDS ORDERED: MIRALAX119 GM ORAL (14:02)
[2020-07-07] MEDS ORDERED: EFFEXOR25 MG ORAL (14:02)
[2020-07-07] MEDS ORDERED: FEOSOL325 MG ORAL (14:02)
[2020-07-07 16:00] VITALS: BP 142/87
--- NOTE | 2020-07-07 17:02 | Surgery Progress Note ---
Surgery Progress Note Subjective Symptoms: improved, tolerating diet, voiding well, passing flatus, BM, pain decreased Objective Last 24 Hour Vital Signs Date Time Temp Pulse Resp B/P (MAP) Pulse Ox O2 Delivery O2 Flow Rate FiO2 07/07/20 16:00 98.3 98 18 142/87 (105) 98 07/07/20 12:00 98.7 98 18 143/80 (101) 98 07/07/20 09:08 150/87 07/07/20 09:07 101 150/87 07/07/20 09:00 Room Air 07/07/20 08:00 98.6 101 18 150/87 (108) 98 07/07/20 04:00 98.6 89 18 145/79 (101) 95 07/07/20 00:00 98.3 89 16 145/85 (105) 95 07/06/20 21:00 Room Air 07/06/20 20:39 145/87 07/06/20 20:00 98.0 96 19 145/87 (106) 95 I&O Intake and Output 07/06/20 07/07/20 19:00 07:00 Intake Total 750 ml 500 ml Output Total 600 ml 900 ml Balance 150 ml -400 ml Intake Oral 750 ml 500 ml Output Urine Total 600 ml 900 ml Dressing: dry Wound: clean Cardiovascular: RSR Respiratory: clear Abdomen: soft, non-tender, present bowel sounds Extremities: no edema, no tenderness, no cyanosis Laboratory Tests Test 07/07/20 05:08 White Blood Count 8.9 K/UL (4.8-10.8) Red Blood Count 3.26 M/UL (4.20-5.40) L Hemoglobin 9.3 G/DL (12.0-16.0) L Hematocrit 28.4 % (37.0-47.0) L Mean Corpuscular Volume 87 FL (80-99) Mean Corpuscular Hemoglobin 28.7 PG (27.0-31.0) Mean Corpuscular Hemoglobin Concent 32.9 G/DL (32.0-36.0) Red Cell Distribution Width 12.0 % (11.6-14.8) Platelet Count 306 K/UL (150-450) Mean Platelet Volume 7.7 FL (6.5-10.1) Neutrophils (%) (Auto) 68.8 % (45.0-75.0) Lymphocytes (%) (Auto) 9.8 % (20.0-45.0) L Monocytes (%) (Auto) 14.0 % (1.0-10.0) H Eosinophils (%) (Auto) 4.9 % (0.0-3.0) H Basophils (%) (Auto) 2.6 % (0.0-2.0) H Sodium Level 138 MMOL/L (136-145) Potassium Level 4.4 MMOL/L (3.5-5.1) Chloride Level 103 MMOL/L (98-107) Carbon Dioxide Level 30 MMOL/L (21-32) Anion Gap 5 mmol/L (5-15) Blood Urea Nitrogen 18 mg/dL (7-18) Creatinine 0.7 MG/DL (0.55-1.30) Estimat Glomerular Filtration Rate > 60 mL/min (>60) Glucose Level 109 MG/DL (74-106) H Calcium Level 9.2 MG/DL (8.5-10.1) Plan Problems: (1) Hip pain (2) Fracture of femoral neck, right (3) Fall Assessment & Plan: fall while standing ground level no loc full exam done. no other subsequent injury noted ct reviewed fairly isolated ortho. ortho input appreciated pain control pt/ot thank you There is marked age-related enlargement of the ventricles and extra axial CSF spaces. There is considerable periventricular deep white matter low- attenuation, consistent with chronic microvascular ischemic changes. No acute intracranial hemorrhage or edema. No mass effect nor midline shift. Otherwise normal riddle- white differentiation. The calvarium is intact. The mastoids are clear. There is maxillary, ethmoid, and sphenoid sinus disease. No acute fracture. No dislocation. No prevertebral soft tissue swelling. There is slight anterior offset of C2 on C3, C3 on C4, and C4 on C5. There is thickening and calcification of the posterior transverse ligament of the odontoid. There is degenerative narrowing the anterior atlantoaxial joint. At C2-3, there is bilateral facet arthrosis. No significant disc bulge or protrusion or spinal stenosis. At C3-4, there is severe left neural foraminal stenosis. No significant disc bulge or protrusion, spinal stenosis, or neural foraminal stenosis. There is facet arthrosis on the left. At C4-5, no significant disc bulge or protrusion, spinal stenosis, or neural foraminal stenosis. At C5-6, there is mild degenerative disc narrowing. There is mild bilateral neural foraminal narrowing. At C6-7 and C7-T1, no significant disc bulge or protrusion, spinal stenosis, or neural foraminal stenosis. There is bilateral facet arthrosis. There is some mucosal irregularity with surface bubbles involving the posterior nasopharynx. There is extensive sinus disease. Impression: No acute bony trauma Degenerative changes as detailed on a level by level basis above Some apparent surface irregularity of the posterior nasopharynx. Probably due to secretions, but mucosal lesion also possible. Consider direct inspection (4) Hip fracture, right (5) Intertrochanteric fracture of right femur Assessment & Plan: There is a comminuted intertrochanteric fracture of the rig ht hip. No associated pelvic fracture. The bones are osteoporotic. The joint spaces are preserved. Impression: Positive for right hip intertrochanteric fracture as per ortho thank you s/p Right hip open reduction and internal fixation using a short 120-degree by 10 mm diameter gamma nail with distal screw fixation. Roldan Rose Jul 07, 2020 17:02
--- NOTE | 2020-07-07 17:30 | NUR ---
NURSE NOTES: Pt in stable condition. Provided discharge instructions and medication list. Pt verbalized understanding. All belongings were accounted for. IV and ID band removed. Pt was escorted by nurse via W/C to downstair and picked up by daughter
--- NOTE | 2020-07-08 16:42 | Discharge Summary ---
Discharge Summary Discharge Summary _ Date of admission: 06/30/2020 Date of discharge: 07/07/[address] Cobos History of Present Illness and Brief Hospital Course Ms. Thomas is an 85-year-old female with past medical history of hypertension, myocardial infarction, status post 2 stents, and depression,, who presented to the ED via ambulance status post mechanical fall that morning prior to arrival. Patient was walking her dog, and her dog took off, causing her to have instability on her feet. Patient fell directly onto her right hip. She was noted to have deformity to the right hip. X-ray of the right hip showed closed right intertrochanteric femur fracture. CT scan of the head and C-spine were performed and were negative for acute fracture, dislocation, or intracranial hemorrhage. Chest x-ray revealed no acute disease. X-ray of the knee right knee showed normal alignment with normal soft tissues. She tested negative for COVID-19 in the ER. She had history of hypertension and was started on lisinopril and metoprolol, along with clonidine as needed. Her record indicated that she had history of coronary artery disease with stent placement in the past. She remained free from any chest pain. EKG was nonischemic and echocardiogram showed showed ejection fraction of 60%. Patient was stable and was at moderate risk to pro ceed with a right hip surgery. She was taken to the OR for right hip open reduction and internal fixation using a short 120 degree by 10 mm diameter gamma nail with distal screw fixation. She tolerated the procedure well and she appeared comfortable after the surgery with appropriate pain control.Patient was started on aspirin for DVT prophylaxis measure once cleared by surgery team. Over the next few days she tolerated her diet, was voiding well, passed flatus, and had bowel movements. Patient was evaluated by physical therapist as well. Patient required mobility assistance. Patient reported that she lives with her daughter in a two-story condo where the bathroom and bedrooms are upstairs. Patient was recommended to be discharged with a walker for ambulation. On the day of her discharge, patient's medical condition remained stable. She was able to be discharged home in stable condition and was picked up by her daughter. Consultants: Cardiology Dr. Chávez Surgery Dr. Rose Orthopedic Dr. Luna Discharge Condition Improved and stable, needs assistance with ambulation Discharge Activity Advance as tolerated Final diagnoses Hypertension Coronary artery disease with stent placement Right intertrochanteric fracture, s/p ORIF Hyperlipidemia History of [place] History of depression I have been assigned to dictate discharge summary for this account. I was not involved in the patient's management Ethan Alcantar Jul 08, 2020 16:42
== END 2020-07-07 17:30 | disposition home or self-care (01) | DRG 482 ==
LOC: EDBD 09:00 → EMR 12:50 → 4E 12:57 → EDBEDREQ 14:07 → 3E 07-02 06:45
PROC: 0QS604Z Reposition Right Upper Femur with Internal Fixation Device, Open Approach (ICD-10-PCS; principal; 2020-07-02 06:45)
DX: S72.141A Displaced intertrochanteric fracture of right femur, initial encounter for closed fracture (principal); W18.31XA Fall on same level due to stepping on an object, initial encounter; Y92.480 Sidewalk as the place of occurrence of the external cause; I10 Essential (primary) hypertension; I25.10 Atherosclerotic heart disease of native coronary artery without angina pectoris; Z95.5 Presence of coronary angioplasty implant and graft; I25.2 Old myocardial infarction; Z20.822 Contact with and (suspected) exposure to COVID-19
CPT/HCPCS: 36415; 70450; 71045; 72125; 72170; 76000; 80048; 80053; 80061; 82550; 83036; 83735; 84443; 84484; 85025; 85610; 85730; 93005; 93306; 94003; 94150; 96374; 96375; 96376; 99285; J2250; J2405; U0002